=== PATIENT | female | born 1975 | race Caucasian/White ===

== ENCOUNTER 2019-03-01 06:00 | Outpatient (RCR) | payer MEDICAID, SELFPAY | END 2019-03-23 23:00 | disposition home or self-care (01) | LOC: TPT 06:00 | PROVIDERS: Family Provider Family Medicine; Visit Provider Anesthesiology Pain Medicine | DX: M48.04 Spinal stenosis, thoracic region (principal); G89.4 Chronic pain syndrome | CPT/HCPCS: 97110 ×5; 97530; G0283 ×5 ==

== ENCOUNTER → 2019-05-27 16:30 | Outpatient (BNVA) | payer MEDICAID, SELFPAY | PROVIDERS: Family Provider Family Medicine; PCP Family Medicine; Visit Provider Family Medicine | DX: L02.211 Cutaneous abscess of abdominal wall (principal); M19.90 Unspecified osteoarthritis, unspecified site | CPT/HCPCS: 84550; 85651; 86038; 86431 ==

== ENCOUNTER → 2019-06-05 11:51 | Outpatient (BNVA) | payer MEDICAID, SELFPAY | PROVIDERS: Family Provider Family Medicine; PCP Family Medicine; Visit Provider Family Medicine | DX: E10.9 Type 1 diabetes mellitus without complications (principal); M19.90 Unspecified osteoarthritis, unspecified site; F25.9 Schizoaffective disorder, unspecified; G89.29 Other chronic pain | CPT/HCPCS: 36415; 80048; 82044; 83036; 83721 ==

== ENCOUNTER → 2019-06-22 13:43 | Outpatient (BNVA) | payer MEDICAID, SELFPAY | PROVIDERS: Family Provider Family Medicine; PCP Family Medicine; Visit Provider Counselor Professional | DX: F41.1 Generalized anxiety disorder (principal); F33.2 Major depressive disorder, recurrent severe without psychotic features; F43.9 Reaction to severe stress, unspecified | CPT/HCPCS: 90834 ==

== ENCOUNTER → 2019-07-02 07:45 | Outpatient (BNVA) | payer MEDICAID, SELFPAY | PROVIDERS: Family Provider Family Medicine; PCP Family Medicine; Visit Provider Counselor Professional | DX: F41.1 Generalized anxiety disorder (principal); F33.2 Major depressive disorder, recurrent severe without psychotic features; F43.12 Post-traumatic stress disorder, chronic | CPT/HCPCS: 90834 ==

== ENCOUNTER → 2019-07-09 08:46 | Outpatient (BNVA) | payer MEDICAID, SELFPAY | PROVIDERS: Family Provider Family Medicine; PCP Family Medicine; Visit Provider Counselor Professional | DX: F41.1 Generalized anxiety disorder (principal); F33.2 Major depressive disorder, recurrent severe without psychotic features | CPT/HCPCS: 90834 ==

== ENCOUNTER → 2019-07-15 07:43 | Outpatient (BNVA) | payer MEDICAID, SELFPAY | PROVIDERS: Family Provider Family Medicine; PCP Family Medicine; Visit Provider Counselor Professional | DX: F41.1 Generalized anxiety disorder (principal); F33.9 Major depressive disorder, recurrent, unspecified; F43.12 Post-traumatic stress disorder, chronic | CPT/HCPCS: 90834 ==

== ENCOUNTER → 2019-07-23 08:35 | Outpatient (BNVA) | payer MEDICAID, SELFPAY | PROVIDERS: Family Provider Family Medicine; PCP Family Medicine; Visit Provider Counselor Professional | DX: F41.1 Generalized anxiety disorder (principal); F33.2 Major depressive disorder, recurrent severe without psychotic features | CPT/HCPCS: 90834 ==

== ENCOUNTER → 2019-07-30 08:30 | Outpatient (BNVA) | payer MEDICAID, SELFPAY | PROVIDERS: Family Provider Family Medicine; PCP Family Medicine; Visit Provider Counselor Professional | DX: F41.1 Generalized anxiety disorder (principal); F33.2 Major depressive disorder, recurrent severe without psychotic features | CPT/HCPCS: 90834 ==

== ENCOUNTER → 2019-07-31 08:16 | Outpatient (BNVA) | payer MEDICAID, SELFPAY | PROVIDERS: Family Provider Family Medicine; PCP Family Medicine; Visit Provider Psychiatry & Neurology Psychiatry | DX: E53.8 Deficiency of other specified B group vitamins (principal); G63 Polyneuropathy in diseases classified elsewhere; R41.89 Other symptoms and signs involving cognitive functions and awareness; R46.89 Other symptoms and signs involving appearance and behavior; F17.200 Nicotine dependence, unspecified, uncomplicated; G47.00 Insomnia, unspecified; E55.9 Vitamin D deficiency, unspecified; F06.30 Mood disorder due to known physiological condition, unspecified | CPT/HCPCS: 99205 ==

== ENCOUNTER → 2019-08-05 09:04 | Outpatient (BNVA) | payer MEDICAID, SELFPAY | PROVIDERS: Family Provider Family Medicine; Visit Provider Counselor Professional | DX: F41.1 Generalized anxiety disorder (principal); F33.2 Major depressive disorder, recurrent severe without psychotic features; F43.9 Reaction to severe stress, unspecified | CPT/HCPCS: 90834 ==

== ENCOUNTER → 2019-08-14 07:49 | Outpatient (BNVA) | payer MEDICAID, SELFPAY | PROVIDERS: Family Provider Family Medicine; Visit Provider Psychiatry & Neurology Psychiatry | DX: F34.9 Persistent mood [affective] disorder, unspecified (principal) | CPT/HCPCS: 99214 ==

== ENCOUNTER → 2019-08-17 08:31 | Outpatient (BNVA) | payer MEDICAID, SELFPAY | PROVIDERS: Family Provider Family Medicine; Visit Provider Counselor Professional | DX: F06.30 Mood disorder due to known physiological condition, unspecified (principal); F17.200 Nicotine dependence, unspecified, uncomplicated | CPT/HCPCS: 90834 ==

== ENCOUNTER → 2019-08-25 11:08 | Outpatient (BNVA) | payer MEDICAID, SELFPAY | PROVIDERS: Family Provider Family Medicine; Visit Provider Psychiatry & Neurology Psychiatry | DX: E53.8 Deficiency of other specified B group vitamins (principal); E55.9 Vitamin D deficiency, unspecified; F06.30 Mood disorder due to known physiological condition, unspecified; G47.9 Sleep disorder, unspecified; G47.00 Insomnia, unspecified; R41.89 Other symptoms and signs involving cognitive functions and awareness; E10.65 Type 1 diabetes mellitus with hyperglycemia | CPT/HCPCS: 80053; 80061; 82306; 82607; 82746; 83036; 83735; 84439; 84443; 84481; 85025 ==

== ENCOUNTER → 2019-08-27 08:36 | Outpatient (BNVA) | payer MEDICAID, SELFPAY | PROVIDERS: Family Provider Family Medicine; Visit Provider Nurse Practitioner Psychiatric/Mental Health | DX: F43.12 Post-traumatic stress disorder, chronic (principal); F06.30 Mood disorder due to known physiological condition, unspecified; G47.00 Insomnia, unspecified; F17.200 Nicotine dependence, unspecified, uncomplicated | CPT/HCPCS: 99213 ==

== ENCOUNTER → 2019-09-02 14:00 | Outpatient (BNVA) | payer MEDICAID, SELFPAY | PROVIDERS: Family Provider Family Medicine; PCP Family Medicine; Visit Provider Counselor Professional | DX: F43.12 Post-traumatic stress disorder, chronic (principal); F17.200 Nicotine dependence, unspecified, uncomplicated | CPT/HCPCS: 90834 ==

== ENCOUNTER 2019-10-05 12:24 | Outpatient (CLI) | payer MEDICAID, SELFPAY ==
--- NOTE | 2019-10-05 13:54 | XRR_ITS ---
PROCEDURE INFORMATION: Exam: XR Left Hand Exam date and time: 10/05/2019 2:02 PM Age: 44 years old Clinical indication: Pain; Hand; Bilateral; Additional info: Bilateral hand pain TECHNIQUE: Imaging protocol: XR Left hand. Views: 3 or more views. COMPARISON: No relevant prior studies available. FINDINGS: Bones/joints: Negative for acute bony abnormality Soft tissues: Normal. XR/XR hand LT min 3V* [id number] IMPRESSION: No acute findings.
--- NOTE | 2019-10-05 13:54 | XRR_ITS ---
PROCEDURE INFORMATION: Exam: XR Left Knee Exam date and time: 10/05/2019 2:45 PM Age: 44 years old Clinical indication: Pain; Knee; Bilateral; Additional info: Bilateral knee pain TECHNIQUE: Imaging protocol: XR Left knee. Views: 3 views. COMPARISON: No relevant prior studies available. FINDINGS: Bones/joints: Normal. Soft tissues: Normal. XR/XR knee LT 3V* [id number] IMPRESSION: No acute findings.
--- NOTE | 2019-10-05 13:54 | XRR_ITS ---
PROCEDURE INFORMATION: Exam: XR Right Knee Exam date and time: 10/05/2019 2:50 PM Age: 44 years old Clinical indication: Pain; Knee; Bilateral; Additional info: Bilateral knee pain TECHNIQUE: Imaging protocol: XR Right knee. Views: 3 views. COMPARISON: No relevant prior studies available. FINDINGS: Bones/joints: Negative for acute bony abnormality Soft tissues: Normal. XR/XR knee RT 3V* [id number] IMPRESSION: No acute findings.
--- NOTE | 2019-10-05 13:54 | XRR_ITS ---
PROCEDURE INFORMATION: Exam: XR Right Hand Exam date and time: 10/05/2019 2:38 PM Age: 44 years old Clinical indication: Pain; Hand; Bilateral; Additional info: Bilateral hand pain TECHNIQUE: Imaging protocol: XR Right hand. Views: 3 or more views. COMPARISON: No relevant prior studies available. FINDINGS: Bones/joints: Negative for acute bony abnormality Soft tissues: Normal. XR/XR hand RT min 3V* [id number] IMPRESSION: No acute findings.
--- NOTE | 2019-10-05 13:54 | XRR_ITS ---
PROCEDURE INFORMATION: Exam: XR Bilateral Hips with Pelvis when Performed Exam date and time: 10/05/2019 3:18 PM Age: 44 years old Clinical indication: Hip pain; Bilateral; Additional info: Bilateral hip pain TECHNIQUE: Imaging protocol: XR bilateral hips with pelvis when performed. Views: 2 views. COMPARISON: US pelvic with transvaginal 08/16/2016 3:26 PM FINDINGS: Bones/joints: Unremarkable. No acute fracture. Soft tissues: Unremarkable. XR/XR hip BI m 5V wo/w pel* [id number] IMPRESSION: No acute findings.
[2019-10-05 14:49] LABS: Alanine Aminotransferase 16 U/L (0-33); Albumin Level 4.5 g/dL (3.5-5.2); Alkaline Phosphatase 57 IU/L (35-105); Anion Gap 21.6 (5-19); Aspartate Amino Transferase 16 U/L (0-32); Blood Urea Nitrogen 13 mg/dL (6-20); Calcium 9.4 mg/dL (8.5-10.5); Carbon Dioxide 19 mmol/L (22-29); Chloride 101 mmol/L (98-107); Globulin 2.8 g/dL (1.3-4.6); Glucose 179 mg/dL (65-115); Osmolality Calculated 285 mOsm/kg (285-295); Potassium 4.6 mmol/L (3.5-5.1); Sodium 137 mmol/L (136-145); Total Bilirubin 0.4 mg/dL (0.15-1.2); Total Protein 7.3 g/dL (6.6-8.7)
[2019-10-05 15:40] LABS: Erythrocyte Sedimentation Rate 16 mm/hr (0-15)
[2019-10-06 12:40] LABS: Anti-Nuclear Antibody Screen NEGATIVE (NEGATIVE)
[2019-10-06 13:40] LABS: Cyclic Citrullinated Peptide <16 UNITS
== END 2019-10-05 12:25 | disposition home or self-care (01) ==
PROVIDERS: PCP Family Medicine; Visit Provider Anesthesiology Pain Medicine
DX: M25.561 Pain in right knee (principal); M25.562 Pain in left knee; M25.551 Pain in right hip; M25.552 Pain in left hip; M79.641 Pain in right hand; M79.642 Pain in left hand
CPT/HCPCS: 73130; 73522; 73523; 73562; 80053; 85651; 86038; 86140; 86431

== ENCOUNTER → 2019-11-25 13:58 | Outpatient (BNVA) | payer MEDICAID, SELFPAY | PROVIDERS: PCP Family Medicine; Visit Provider Internal Medicine Rheumatology | DX: M06.00 Rheumatoid arthritis without rheumatoid factor, unspecified site (principal); Z11.59 Encounter for screening for other viral diseases; Z79.899 Other long term (current) drug therapy; Z11.1 Encounter for screening for respiratory tuberculosis; E10.65 Type 1 diabetes mellitus with hyperglycemia; M51.9 Unspecified thoracic, thoracolumbar and lumbosacral intervertebral disc disorder; M48.00 Spinal stenosis, site unspecified; F17.210 Nicotine dependence, cigarettes, uncomplicated; Z79.4 Long term (current) use of insulin | CPT/HCPCS: 36415; 82306; 84550; 85025; 85651; 86140; 86480; 86704; 86803; 87340; 99204 ==

== ENCOUNTER → 2019-12-30 12:13 | Outpatient (BNVA) | payer MEDICAID, SELFPAY | PROVIDERS: PCP Family Medicine; Visit Provider Family Medicine | DX: M79.672 Pain in left foot (principal); E10.65 Type 1 diabetes mellitus with hyperglycemia; E78.2 Mixed hyperlipidemia; H53.9 Unspecified visual disturbance; M19.072 Primary osteoarthritis, left ankle and foot | CPT/HCPCS: 73630; 80061; 83036 ==

== ENCOUNTER → 2020-01-13 15:16 | Outpatient (BNVA) | payer MEDICAID, SELFPAY | PROVIDERS: PCP Family Medicine; Visit Provider Internal Medicine Rheumatology | DX: M06.041 Rheumatoid arthritis without rheumatoid factor, right hand (principal); M06.042 Rheumatoid arthritis without rheumatoid factor, left hand; E10.65 Type 1 diabetes mellitus with hyperglycemia; Z79.899 Other long term (current) drug therapy; F17.210 Nicotine dependence, cigarettes, uncomplicated; Z79.52 Long term (current) use of systemic steroids; Z79.4 Long term (current) use of insulin | CPT/HCPCS: 99214 ==

== ENCOUNTER → 2020-02-09 11:23 | Outpatient (BNVA) | payer MEDICAID, SELFPAY | PROVIDERS: PCP Family Medicine; Visit Provider Physician Assistant Medical | DX: E10.65 Type 1 diabetes mellitus with hyperglycemia (principal) | CPT/HCPCS: 82043; 82565; 83036 ==

== ENCOUNTER → 2020-02-11 12:49 | Outpatient (BNVA) | payer MEDICAID, SELFPAY | PROVIDERS: PCP Family Medicine | DX: Z79.899 Other long term (current) drug therapy (principal) | CPT/HCPCS: 36415; 80076; 82565; 85025; 85651; 86140 ==

== ENCOUNTER → 2020-03-15 08:15 | Outpatient (BNVA) | payer MEDICAID, SELFPAY | PROVIDERS: PCP Family Medicine; Referring Provider Family Medicine; Visit Provider Specialist | DX: G43.709 Chronic migraine without aura, not intractable, without status migrainosus (principal); H53.19 Other subjective visual disturbances; R41.89 Other symptoms and signs involving cognitive functions and awareness; R46.89 Other symptoms and signs involving appearance and behavior; E10.65 Type 1 diabetes mellitus with hyperglycemia; Z79.4 Long term (current) use of insulin; F17.210 Nicotine dependence, cigarettes, uncomplicated | CPT/HCPCS: 99204 ==

== ENCOUNTER 2020-03-29 23:15 | Emergency (ER) | payer MEDICAID, SELFPAY ==
[2020-03-29 23:20] VITALS: BP 98/59; PULSE 120; RESP 25; TEMP 37.1; O2SAT 95; BMI 36.6
--- NOTE | 2020-03-29 23:36 | PC.NURSE ---
pt had witnessed syncopal episode in triage wr. would not come to with sternal rub. wheeled pt back to room and pt came to and is alert and oriented x4
--- NOTE | 2020-03-29 23:49 | W.ED.EXTPRO ---
HPI - Extremity Problem General: Chief complaint: Extremity Injury, Lower Stated complaint: Hip Pain Time Seen by Provider: 03/29/20 23:35 History of Present Illness: HPI Narrative: Patient is a 44-year-old female who comes to the ED with acute on chronic right hip pain. Patient says she has been having chronic right hip pain for the past several months and she is seeing her doctor told her it is bursitis and told her to do some exercises to help with symptoms. She says her sizes have not helped. She says today she started having severe right hip pain. She describes the pain is sharp and burning pain in her hip and that goes down into her right leg. She says pain also shoots into the lower back as well. She rates pain a 10 out of 10. She denies any acute injury to cause more severe pain today, but does state around 10 PM tonight she fell due to the pain. Denies any head trauma or loss of consciousness. She did state that right hip pain got worse after fall. Denies any bladder or bowel incontinence or pelvic anesthesia or weakness to extremities. Associated symptoms: Deny chest pain, fever(s) or rash Review of Systems Const: Denies: fever(s), chills or fatigue Eyes: Denies: change in vision or eye discomfort ENMT: Denies: throat pain, odynophagia, nasal discharge or nasal congestion Card: Denies: chest pain, palpitations, edema, swelling of feet/ankles, dyspnea on exertion or orthopnea Resp: Denies: dyspnea, productive cough or non-productive cough GI: Denies: abdominal pain, nausea, vomiting, diarrhea, constipation or hematochezia : Denies: flank pain, dysuria or hematuria Musc: Reports: back pain (Low back pain) and extremity pain (Right hip pain); Denies: neck pain or extremity swelling Skin/Breast: Denies: rash or new lesions Neuro: Denies: headache(s), numbness in extremities or weakness in extremities PFS ED PFSH: Medical History Anxiety Bulging lumbar disc Chronic constipation DDD (degenerative disc disease) Diabetes mellitus type 1- pump Essential (primary) hypertension GERD (gastroesophageal reflux disease) High risk medication use Hyperlipidemia Immunization counseling Insomnia Leukocytosis Neuropathy Nicotine addiction Onychodystrophy PAD (peripheral artery disease) Removal of other organ (partial) (total) as the cause of abnormal reaction of the patient, or of later complication, without mention of misadventure at the time of the procedure partial removal of spleen and pancreace 2006 performed in [place] S/P angiogram of extremity Seronegative rheumatoid arthritis Seronegative rheumatoid arthritis of both hands Sleep disorder Spinal stenosis Thoracic disc disease Surgical History History of dental surgery History of esophagogastroduodenoscopy (EGD) S/P section S/P cholecystectomy S/P tubal ligation 1996 Family History Mother Diabetes Hypertension Grandfather Diabetes Maternal Grandmother Diabetes Maternal Father Heart disease Hypertension Family/Other Breast cancer Maternal Aunt and Paternal Aunts Sister Uterine cancer Other Hypercholesterolemia Social History Smoking and tobacco status: current every day smoker cigarettes Packs smoked per day: 1 Alcohol intake: never Lives independently: Yes Household members: significant other Marital status: Single Current occupational status: employed Current occupation: Part-time works from home History of recent travel: No Physical Exam Const: COMMON NORMALS: patient oriented x3 and alert GENERAL APPEARANCE: cooperative and other (Patient is crying hysterically through history and physical exam.) HENMT: COMMON NORMALS: normocephalic HEAD & SCALP: normocephalic MOUTH: Normal oral and palatal mucosa present THROAT: posterior oropharynx normal and uvula midline Eye: COMMON NORMALS: Equal, round and reactive pupils present PUPIL: Yes Equal, round and reactive pupils present Neck/C-Spine: COMMON NORMALS: supple GENERAL: Yes normal visual inspection Resp: COMMON NORMALS: normal respiratory effort, No retractions, No use of accessory muscles and clear to auscultation bilaterally AUSCULTATION: clear to auscultation bilaterally Cardio: COMMON NORMALS: regular rate, regular rhythm, S1 normal heart sound present, S2 normal heart sound present, No gallops present (Cardio), No clicks present (Cardio), No murmurs present (Cardio) and Peripheral pulses 2+ throughout RATE: regular rate RHYTHM: regular rhythm HEART SOUNDS: S1 normal heart sound present and S2 normal heart sound present PERIPHERAL PULSES: Peripheral pulses 2+ throughout GI: COMMON NORMALS: Normal to inspection, nondistended, normoactive bowel sounds present, Soft to palpation, non-tender and no masses PALPATION: Yes Soft to palpation : COMMON NORMALS: Yes no CVA tenderness BLADDER/KIDNEY EXAM: Yes no CVA tenderness Back/Pelvis: COMMON NORMALS: no CVA tenderness Extremity: COMMON NORMALS: no pedal edema NARRATIVE EXTREMITY EXAM: Patient has some tenderness upon palpation of lateral aspect of right hip. Otherwise no other significant findings upon exam. GENERAL: Yes normal exam except as noted Neuro: COMMON NORMALS: patient oriented x3 and moves all extremities SENSORIUM/ORIENTATION: Yes alert Skin: GENERAL SKIN EXAM: dry skin Course Vital Signs: Vital signs: Vital Signs Temperature 98.8 F 03/29/20 23:20 Pulse Rate 84 03/30/20 02:39 Respiratory Rate 14 03/30/20 02:39 Blood Pressure 132/91 03/30/20 02:39 Pulse Oximetry 97 03/30/20 02:39 MDM - Extremity (Nontraumatic) MDM Narrative: Medical decision making narrative: Patient is a 44-year-old female comes to the ED with acute on chronic right hip pain. She denies any acute accident or injury to cause severe pain., But did say that severe pain started today and she had a fall due to to pain. Denies any head injury or loss of consciousness. She does say that she has lower back pain and she describes the pain in her hip radiating down into her leg. Pain described as sharp and burning. X-ray right hip performed showed no acute findings. Patient was crying hysterically upon exam. She was given a dose of morphine and Ativan IM and her symptoms improved proved. History and presentation of patient is suggestive of lumbar radiculopathy. She denies any cauda equina symptoms. She was seen Dr. Mcnamara previously and would like to see the new neurosurgeon. I placed an order with case management patient be referred to a new neurosurgeon. Patient with discharge and told that case management will be contacting them in the next several days set up an appointment with neurosurgery. Return ED precautions given. Patient currently has a pain contract in takes oxycodone. patient understood and agree with plan. Lab Data: Labs: Lab Results 03/30/20 03/30/20 Range/Units 01:39 02:29 POC Glucose 57 L 73 (70-110) mg/dL Imaging Data^: Xray Ortho: Attestation: I personally reviewed and interpreted this imaging study as follows: My impression: Right hip x-ray?no acute fractures or findings seen. Discharge Plan Discharge Patient Disposition: Home Clinical Impression: Lumbar radiculopathy Condition: Stable Prescriptions: No Action folic acid 1 mg tablet 1 mg PO DAILY Qty: 90 RF: 1 oxycodone 5 mg tablet 5 mg PO BID PRNRF: 0 topiramate [Topamax] 25 mg tablet 25 mg PO BID Qty: 60 RF: 5 Motegrity 2 mg tablet 2 mg PO ONCE RF: 0 Novolog PenFill U-100 Insulin 100 unit/mL cartridge See Rx Instructions SUBCUT .COMPLEX RF: 0 baclofen 20 mg tablet 20 mg PO BID RF: 0 atorvastatin 10 mg tablet 10 mg PO ONCE RF: 0 hydroxychloroquine 200 mg tablet 200 mg PO BID Qty: 60 RF: 3 methotrexate sodium 2.5 mg tablet See Rx Instructions PO .week Qty: 40 RF: 3 prednisone 2.5 mg tablet 2.5 mg PO BID Qty: 60 RF: 3 oxycodone-acetaminophen 5-325 mg tablet 1 tab PO Q8H PRNRF: 0 trazodone 50 mg tablet 50 mg PO .at bedtime PRN (Reason: insomnia) Qty: 90 RF: 1 furosemide 20 mg tablet 20 mg PO QAM Qty: 90 RF: 0 Zyrtec 10 mg capsule 10 mg PO DAILY Qty: 30 RF: 5 Motegrity 2 mg tablet 2 mg PO QDAY 30 Days Qty: 30 RF: 6 aspirin [Adult Low Dose Aspirin] 81 mg tablet,delayed release (DR/EC) 81 mg PO DAILY Qty: 90 RF: 4 diclofenac sodium [Voltaren] 1 % gel 2 gm TOPICAL QID Qty: 100 RF: 1 celecoxib 200 mg capsule See Rx Instructions .ROUTE .COMPLEX Qty: 60 RF: 3 Dexilant 60 mg capsule,biphase delayed releas 60 mg PO DAILY Qty: 90 RF: 0 Discharge Orders: Discharge ED (Routine); Ordered 03/30/20 Ordered By: Brigido Lynch Referrals: Laura Reich MD [Primary Care Provider] - Discharge Diet: Regular Discharge Activity: Increase activity as tolerated Patient Instructions: Lumbar Radiculopathy (ED) Activity Restrictions/Additional Instructions: Follow-up with medical provider as directed. Case management will be contacting you in the next several days to set up appointment with neurosurgeon Doc. continue taking all home medications as prescribed. Rest and apply cold pack on lower back and hip to help with symptoms. Continue taking previously prescribed pain meds. Return to the ER or your medical provider if condition worsens. Please read and understand discharge instructions. If any questions, please ask. Coding Level of Care Code ED Process Improvement Consultant for [employer] Exam Comprehensive
--- NOTE | 2020-03-29 23:55 | XRR_ITS ---
PROCEDURE INFORMATION: Exam: XR Right Hip with Pelvis when Performed Exam date and time: 03/29/2020 11:56 PM Age: 44 years old Clinical indication: Pain and injury or trauma; Fall; Blunt trauma (contusions or hematomas); Hip pain; Right hip; Additional info: Right hip pain with fall TECHNIQUE: Imaging protocol: XR Right hip with pelvis when performed. Views: 1 view. COMPARISON: CR XR hip BI m 5V wo/w pel* [id number] 10/05/2019 2:51 PM FINDINGS: Bones/joints: Unremarkable. No acute fracture. Soft tissues: Unremarkable. XR/XR hip RT 2-3V wo/w pel* [id number] IMPRESSION: No acute findings.
[2020-03-30] VITALS: BP 156/80; PULSE 99; RESP 18; O2SAT 98
[2020-03-30 00:10] VITALS: RESP 19; O2SAT 98
[2020-03-30] MEDS: morphine 4 mg/mL SDV 1 mL IVP (00:10)
[2020-03-30] MEDS: LORazepam 2 mg/mL INJ 1 mL 1 MG IVP (00:11)
[2020-03-30 00:43] VITALS: BP 143/98; O2SAT 98
[2020-03-30 01:30] VITALS: BP 139/93; RESP 16; O2SAT 99
[2020-03-30] MEDS: morphine 4 mg/mL SDV 1 mL IM (01:35)
[2020-03-30 01:44] LABS: Glucose Point of Care 57 mg/dL (70-110)
[2020-03-30 02:33] LABS: Glucose Point of Care 73 mg/dL (70-110)
[2020-03-30 02:38] VITALS: PULSE 82; RESP 14; O2SAT 96
[2020-03-30 02:39] VITALS: BP 132/91; PULSE 84; RESP 14; O2SAT 97
--- NOTE | 2020-03-30 02:41 | PC.NURSE ---
patient given juice by nurse, patient discharged with hcp aware of patient blood glucose levels and juice given before discharged.
--- NOTE | 2020-03-30 09:37 | DCPLANNER ---
legal department manager had message to schedule a follow up appointment for patient with neurosurgeon. legal department manager called the ortho clinic, spoke with Lilly, gave clinic patients information. legal department manager was told that patients information would be printed and reviewed. Clinic will call patient with appointment information.
--- NOTE | 2020-04-01 10:19 | DCPLANNER ---
Patient has a follow up appointment scheduled for Saturday, April 04, 2020 at 2:[address] Schroeder at [facility]. Clinic will call patient with appointment information.
--- NOTE | 2020-04-20 15:36 | DCPLANNER ---
Patient had a follow up appointment scheduled with ortho -patient did attend appointment.
== END 2020-03-30 02:33 | disposition home or self-care (01) ==
PROVIDERS: Emergency Provider Physician Assistant; PCP Family Medicine
DX: M54.16 Radiculopathy, lumbar region (principal); Z79.4 Long term (current) use of insulin; Z79.82 Long term (current) use of aspirin; I10 Essential (primary) hypertension; E78.5 Hyperlipidemia, unspecified; E10.40 Type 1 diabetes mellitus with diabetic neuropathy, unspecified; F17.210 Nicotine dependence, cigarettes, uncomplicated
CPT/HCPCS: 12345; 36416; 73502; 82962; 96372; 96374; 96375; 99281; 99283; J2060; J2270

== ENCOUNTER 2020-04-06 10:06 | Outpatient (CLI) | payer MEDICAID, SELFPAY ==
--- NOTE | 2020-04-06 10:15 | CT_ITS ---
WS: [id number] CT ABDOMEN CONTRAST TECHNIQUE: Contrast enhanced CT of the abdomen with coronal and sagittal reformatted images. CLINICAL INFORMATION: CHRONIC NAUSEA, GASTROPARESIS COMPARISON: None. DLP: 802.[address] scans at [facility] use at least one of these dose optimization techniques: automat ed exposure control; mA and/or kV adjustment per patient size (includes targeted exams where dose is matched to clinical indication); or iterative reconstruction. FINDINGS: Liver is normal in appearance. Normal portal vein and splenic vein. Cholecystectomy clips. Normal spl een. Normal GE junction. Adrenal glands are normal. Normal renal parenchymal enhancement. No hydronep hrosis. Small right renal cyst. Right renal cyst measures 10 mm. Fatty atrophy of the pancreas. Small low-attenuation lesion along the tail of the pancreas measuring 11 mm. This is difficult to further characterize and nonspecific but may represent sidebranch IPMN. This can be further evaluated with MR I abdomen without and with gadolinium enhancement. Lung bases are well aerated. Tiny faint 2 mm nodule right lower lobe. Normal caliber abdominal aorta. Visualized small and large bowel are unremarkable. Normal appendix in the right lower quadrant. Inci dental fat-containing umbilical hernia. Normal lumbar spine. CT/CT abdomen w con* [id number] IMPRESSION: 1. Prior cholecystectomy. 2. Normal renal parenchymal enhancement. No hydronephrosis. No obstructing hilda al or ureteral calculi. 3. Incidental right renal cyst measuring 10 mm. 4. Small low-attenuation lesion along the tail of the pancreas measuring 11 mm . This is nonspecific but may represent sidebranch IPMN. This can be further ev aluated with MRI abdomen without and with gadolinium enhancement.. 5. Normal Caliber abdominal aorta. 6. Incidental Fat-containing umbilical hernia.
[2020-04-06] MEDS: iohexol 300 mg/mL 50 mL Btl PO (10:26)
[2020-04-06] MEDS: iohexol 300 mg/mL 100 mL Btl IV (10:59)
== END 2020-04-06 10:07 | disposition home or self-care (01) ==
LOC: RADWPI 10:12
PROVIDERS: PCP Family Medicine; Visit Provider Internal Medicine
DX: K31.84 Gastroparesis (principal); R11.0 Nausea; K42.9 Umbilical hernia without obstruction or gangrene; K86.9 Disease of pancreas, unspecified; N28.1 Cyst of kidney, acquired; Z90.49 Acquired absence of other specified parts of digestive tract
CPT/HCPCS: 74160; Q9967

== ENCOUNTER → 2020-04-12 12:51 | Outpatient (BNVA) | payer MEDICAID, SELFPAY | PROVIDERS: PCP Family Medicine; Visit Provider Internal Medicine Rheumatology | DX: M06.041 Rheumatoid arthritis without rheumatoid factor, right hand (principal); M06.042 Rheumatoid arthritis without rheumatoid factor, left hand; Z79.899 Other long term (current) drug therapy; Z79.52 Long term (current) use of systemic steroids; E10.65 Type 1 diabetes mellitus with hyperglycemia; Z96.41 Presence of insulin pump (external) (internal); Z79.4 Long term (current) use of insulin; F17.210 Nicotine dependence, cigarettes, uncomplicated | CPT/HCPCS: 99214 ==

== ENCOUNTER → 2020-04-14 14:23 | Outpatient (BNVA) | payer MEDICAID, SELFPAY | PROVIDERS: PCP Family Medicine; Visit Provider Orthopaedic Surgery | DX: M48.061 Spinal stenosis, lumbar region without neurogenic claudication (principal); M47.894 Other spondylosis, thoracic region; M54.5 Low back pain; M54.6 Pain in thoracic spine | CPT/HCPCS: 72072; 72114 ==

== ENCOUNTER 2020-05-02 13:18 | Outpatient (CLI) | payer MEDICAID, SELFPAY ==
--- NOTE | 2020-05-02 13:45 | MR_ITS ---
WS: [id number] MRI LUMBAR SPINE NONCONTRAST HISTORY: M48.061 - Spinal stenosis, lumbar region without neurogenic claudication COMPARISON: 11/29/2017 TECHNIQUE: Sagittal and axial multisequence imaging is submitted. Central disc osteophyte complex at T11-12. There is slight deformity of the ventral thoracic cord. Th ere is a very small T10-11 central disc protrusion which is unchanged also. Normal lumbar alignment with no compression fractures or marrow edema. Disc spaces and vertebral body heights are well-preserved. Conus terminates normally at L1-2 disc level. L1-L2: Normal. L2-L3: Normal. L3-L4: No stenosis. L4-L5: Small amount of fluid in the facet joints with mild ligamentum flavum hypertrophy. No stenosis . L5-S1: Mild disc bulging with a very shallow central disc protrusion similar to the prior study. No s ignificant nerve root encroachment. Visualized retroperitoneum is negative. MR/MR lumbar spine wo con* [id number] IMPRESSION: 1. No significant disc protrusions or stenosis. 2. Unchanged central disc protrusions as described above at T10-11 and T11-12. 3. Mild disc bulging with a small central disc protrusion at L5-S1 with no ner ve root encroachment.
== END 2020-05-02 13:19 | disposition home or self-care (01) ==
LOC: RADSHAW 13:19
PROVIDERS: PCP Family Medicine; Visit Provider Orthopaedic Surgery
DX: M48.061 Spinal stenosis, lumbar region without neurogenic claudication (principal); M51.24 Other intervertebral disc displacement, thoracic region; M51.27 Other intervertebral disc displacement, lumbosacral region
CPT/HCPCS: 72148

== ENCOUNTER 2020-07-27 21:57 | Emergency (ER) | payer MEDICAID, SELFPAY ==
[2020-07-27 22:07] VITALS: BP 134/83; PULSE 97; RESP 18; TEMP 36.6; O2SAT 99; BMI 38.4
--- NOTE | 2020-07-27 22:21 | XRR_ITS ---
PROCEDURE INFORMATION: Exam: XR Chest Exam date and time: 07/27/2020 10:23 PM Age: 45 years old Clinical indication: Prior surgery; Surgery type: Gb; Patient HX: Chest pain starting this evening. ; Additional info: Cp TECHNIQUE: Imaging protocol: XR of the chest. Views: 1 view. Total images: 1 COMPARISON: CR Ribs LEFT w PA Chest [id number] 07/17/2018 11:38 PM FINDINGS: Lungs: Unremarkable. No consolidation. Pleural spaces: Unremarkable. No pleural effusion. No pneumothorax. Heart/Mediastinum: Unremarkable. No cardiomegaly. Bones/joints: Unremarkable. XR/XR chest 1V portable [id number] IMPRESSION: No acute findings.
--- NOTE | 2020-07-27 22:30 | PC.NURSE ---
EKG taken and given to Dr. Levy
[2020-07-27 22:36] LABS: Glucose Point of Care 86 mg/dL (70-110)
[2020-07-27 22:42] VITALS: BP 129/107; PULSE 95; RESP 20
[2020-07-27] MEDS: lidocaine 2% viscous 15 ML, aluminum-mag hydrox-simethicon 30 ML, sucralfate oral liq 1 GM PO (22:49)
[2020-07-27 22:51] VITALS: BP 141/87; PULSE 89; RESP 20; TEMP 36.6
[2020-07-27 23:17] VITALS: BP 142/68; PULSE 88; RESP 22; O2SAT 97
[2020-07-27] MEDS: ondansetron 2 mg/ML SDV 2 mL 4 MG IVP (23:18)
[2020-07-27] MEDS: morphine 4 mg/mL SDV 1 mL IVP (23:19)
[2020-07-27 23:20] LABS: Basophils # 0.1 10^3/uL (0.0-0.1); Basophils % 1.1 %; Eosinophils # 0.2 10^3/uL (0.0-0.8); Eosinophils % 1.4 %; Hematocrit 40.6 % (37.0-47.0); Hemoglobin 13.3 g/dL (11.5-15.3); Lymphocytes # 5.5 10^3/uL (0.8-4.8); Lymphocytes % 43.7 %; Mean Corpuscular HGB Conc 32.8 g/dL (30.0-36.0); Mean Corpuscular Hemoglobin 30.5 pg (28.0-34.0); Mean Corpuscular Volume 93.1 fL (81-99); Mean Platelet Volume 11.9 fL (7.4-10.4); Monocytes # 0.4 10^3/uL (0.2-0.9); Monocytes % 3.1 %; Neutrophils # 6.32 10^3/uL (1.8-7.7); Neutrophils % 50.4 %; Nucleated Red Blood Cells % 0 %; Platelet Count 184 10^3/cmm (130-400); Red Blood Count 4.36 10^6/uL (4.1-5.3); Red Cell Distribution Width 13.8 % (12.1-15.1); White Blood Count 12.6 10^3/uL (4.0-10.0)
--- NOTE | 2020-07-27 23:29 | ED_ITS ---
HPI - Chest Pain General: Chief Complaint: Chest Pain Stated Complaint: CHEST PAIN Time Seen by Provider: 07/27/20 22:21 Source: patient Mode of arrival: ambulatory Limitations: no limitations History of Present Illness: HPI narrative: 45-year-old female who states has been having chest pain, nausea throughout the day. States been a sharp pain in her lower chest and upper abdomen. Patient did have an EGD done yesterday and had multiple biopsies done. She denies any diarrhea. States the pain is currently 7 out of 10. Denies any worsening improving factors. MD complaint: chest pain Associated symptoms: Deny abdominal pain, dyspnea, fever(s), nausea or vomiting Review of Systems Const: Denies: fever(s), chills, body aches or change in appetite Eyes: Denies: blurry vision or eye discomfort ENMT: Denies: throat pain or dental pain Card: Reports: chest pain Resp: Denies: dyspnea GI: Denies: abdominal pain, nausea, vomiting or diarrhea : Denies: dysuria Musc: Denies: neck pain or back pain Skin/Breast: Denies: rash Neuro: Denies: headache(s) Psych: Denies: depression Fadi/Lymph: Denies: easy bruising All/Imm: Denies: urticaria PFSH ED PFSH: Medical History Anxiety Bulging lumbar disc Chronic constipation DDD (degenerative disc disease) Diabetes mellitus type 1- pump Essential (primary) hypertension GERD (gastroesophageal reflux disease) High risk medication use Hyperlipidemia Immunization counseling Insomnia Leukocytosis Neuropathy Nicotine addiction Onychodystrophy PAD (peripheral artery disease) Removal of other organ (partial) (total) as the cause of abnormal reaction of the patient, or of later complication, without mention of misadventure at the time of the procedure partial removal of spleen and pancreace 2006 performed in [place] S/P angiogram of extremity Seronegative rheumatoid arthritis Seronegative rheumatoid arthritis of both hands Sleep disorder Spinal stenosis Thoracic disc disease Surgical History History of dental surgery History of esophagogastroduodenoscopy (EGD) S/P section S/P cholecystectomy S/P tubal ligation 1996 Family History Mother Diabetes Hypertension Grandfather Diabetes Maternal Grandmother Diabetes Maternal Father Heart disease Hypertension Family/Other Breast cancer Maternal Aunt and Paternal Aunts Sister Uterine cancer Other Hypercholesterolemia Social History Smoking and tobacco status: current every day smoker cigarettes Packs smoked per day: 1 Alcohol intake: never Lives independently: Yes Household members: significant other Marital status: Single Current occupational status: employed Current occupation: Part-time works from home History of recent travel: No Physical Exam Const: COMMON NORMALS: no acute distress, patient oriented x3 and healthy appearing HENMT: COMMON NORMALS: normocephalic and atraumatic HEAD & SCALP: normocephalic and atraumatic Eye: COMMON NORMALS: Equal, round and reactive pupils present and EOMs intact bilaterally PUPIL: Yes Equal, round and reactive pupils present Neck/C-Spine: COMMON NORMALS: full ROM and supple Chest: COMMONS NORMALS: normal inspection of the chest and normal palpation of entire chest wall Resp: COMMON NORMALS: normal respiratory effort, No retractions, No use of accessory muscles and clear to auscultation bilaterally AUSCULTATION: clear to auscultation bilaterally Cardio: COMMON NORMALS: regular rate, regular rhythm and No murmurs present (Cardio) RATE: regular rate RHYTHM: regular rhythm GI: COMMON NORMALS: Normal to inspection, nondistended, normoactive bowel sounds present, Soft to palpation, non-tender and no masses PALPATION: Yes Soft to palpation Extremity: COMMON NORMALS: normal to inspection and full ROM Neuro: COMMON NORMALS: patient oriented x3, moves all extremities and no focal motor deficits Psych: COMMON NORMALS: mental status grossly normal, Normal thought process present and cooperative THOUGHT PROCESS: Normal thought process present Skin: COMMON NORMALS: no rashes or lesions noted and no wounds GENERAL SKIN EXAM: no rashes or lesions noted Course Reevaluation(s): Reevaluation #1: Patient became very angry and screaming and yelling at the nurse. Came in the room to speak to her and she states that my blood sugar is crashing and no one did nothing about it. Her blood sugar was checked and was 65 and she had a sandwich and juice brought here within 10 minutes for that. She is awake and alert I tried to explain to her that we are doing things currently to to fix her blood sugar she felt that it was not in a timely manner to been done quicker than 10 minutes. Did speak to her and she was able to calm down. I informed her that her cannot scream or yell at staff like they were doing and her had actually threatened staff as well and is talked to him and he is calm down at this time as well. Time: 12:20 Vital Signs: Vital signs: Vital Signs Temperature 97.8 F 07/27/20 22:51 Pulse Rate 85 07/28/20 02:17 Respiratory Rate 19 H 07/28/20 02:17 Blood Pressure 124/70 07/28/20 02:17 Pulse Oximetry 97 07/28/20 02:17 MDM - Chest Pain MDM Narrative: Medical decision making narrative: Patient presents with chest abdominal pain. Could be due to her recent EGD and biopsy. Patient's troponins here are normal. CAT scans here showed no acute findings either. She has no signs of perforation. She feels improved here and is stable for discharge. She is to follow-up with her primary care doctor and is to return if worsening. She understands and agrees to plan. Lab Data: Labs: Lab Results 07/27/20 07/27/20 07/27/20 Range/Units 22:33 23:15 23:15 WBC 12.6 H (4.0-10.0) 10^3/ uL RBC 4.36 (4.1-5.3) 10^6/u L Hgb 13.3 (11.5-15.3) g/dL Hct 40.6 (37.0-47.0) % MCV 93.1 (81-99) fL MCH 30.5 (28.0-34.0) pg MCHC 32.8 (30.0-36.0) g/dL RDW 13.8 (12.1-15.1) % Plt Count 184 (130-400) 10^3/c mm MPV 11.9 H (7.4-10.4) fL Neut % (Auto) 50.4 % Lymph % (Auto) 43.7 % Leake % (Auto) 3.1 % Eos % (Auto) 1.4 % Baso % (Auto) 1.1 % Neut # (Auto) 6.32 (1.8-7.7) 10^3/u L Lymph # (Auto) 5.5 H (0.8-4.8) 10^3/u L Leake # (Auto) 0.4 (0.2-0.9) 10^3/u L Eos # (Auto) 0.2 (0.0-0.8) 10^3/u L Baso # (Auto) 0.1 (0.0-0.1) 10^3/u L Nucleated RBC % (a uto) 0 % Nucleated RBCs # 0.0 /100WBC Sodium 139 (136-145) mmol/L Potassium 4.0 (3.5-5.1) mmol/L Chloride 107 (98-107) mmol/L Carbon Dioxide 25 (22-29) mmol/L Anion Gap 11.0 (5-19) BUN 16 (6-20) mg/dL Creatinine 0.9 (0.5-0.9) mg/dL GFR Calculation 67.7 L (90-130) mL/min Glucose 79 (65-115) mg/dL POC Glucose 86 (70-110) mg/dL Calculated Osmolal ity 288 (285-295) mOsm/k g Calcium 8.2 L (8.5-10.5) mg/dL Total Bilirubin 0.2 (0.15-1.2) mg/dL AST 14 (0-32) U/L ALT 17 (0-33) U/L Alkaline Phosphata se 52 (35-105) IU/L Troponin T Baselin e (0-10) ng/L Troponin T 120 Min [place] (0-10) ng/L Delta Troponin T (0-10) ABS# Total Protein 5.6 L (6.6-8.7) g/dL Albumin 4.0 (3.5-5.2) g/dL Globulin 1.6 (1.3-4.6) g/dL 07/27/20 07/28/20 07/28/20 Range/Units 23:15 00:09 00:44 WBC (4.0-10.0) 10^3/ uL RBC (4.1-5.3) 10^6/u L Hgb (11.5-15.3) g/dL Hct (37.0-47.0) % MCV (81-99) fL MCH (28.0-34.0) pg MCHC (30.0-36.0) g/dL RDW (12.1-15.1) % Plt Count (130-400) 10^3/c mm MPV (7.4-10.4) fL Neut % (Auto) % Lymph % (Auto) % Leake % (Auto) % Eos % (Auto) % Baso % (Auto) % Neut # (Auto) (1.8-7.7) 10^3/u L Lymph # (Auto) (0.8-4.8) 10^3/u L Leake # (Auto) (0.2-0.9) 10^3/u L Eos # (Auto) (0.0-0.8) 10^3/u L Baso # (Auto) (0.0-0.1) 10^3/u L Nucleated RBC % (a uto) % Nucleated RBCs # /100WBC Sodium (136-145) mmol/L Potassium (3.5-5.1) mmol/L Chloride (98-107) mmol/L Carbon Dioxide (22-29) mmol/L Anion Gap (5-19) BUN (6-20) mg/dL Creatinine (0.5-0.9) mg/dL GFR Calculation (90-130) mL/min Glucose (65-115) mg/dL POC Glucose 65 L (70-110) mg/dL Calculated Osmolal ity (285-295) mOsm/k g Calcium (8.5-10.5) mg/dL Total Bilirubin (0.15-1.2) mg/dL AST (0-32) U/L ALT (0-33) U/L Alkaline Phosphata se (35-105) IU/L Troponin T Baselin e 6 (0-10) ng/L Troponin T 120 Min [place] 6.20 (0-10) ng/L Delta Troponin T 0.20 (0-10) ABS# Total Protein (6.6-8.7) g/dL Albumin (3.5-5.2) g/dL Globulin (1.3-4.6) g/dL 07/28/20 Range/Units 01:30 WBC (4.0-10.0) 10^3/ uL RBC (4.1-5.3) 10^6/u L Hgb (11.5-15.3) g/dL Hct (37.0-47.0) % MCV (81-99) fL MCH (28.0-34.0) pg MCHC (30.0-36.0) g/dL RDW (12.1-15.1) % Plt Count (130-400) 10^3/c mm MPV (7.4-10.4) fL Neut % (Auto) % Lymph % (Auto) % Leake % (Auto) % Eos % (Auto) % Baso % (Auto) % Neut # (Auto) (1.8-7.7) 10^3/u L Lymph # (Auto) (0.8-4.8) 10^3/u L Leake # (Auto) (0.2-0.9) 10^3/u L Eos # (Auto) (0.0-0.8) 10^3/u L Baso # (Auto) (0.0-0.1) 10^3/u L Nucleated RBC % (a uto) % Nucleated RBCs # /100WBC Sodium (136-145) mmol/L Potassium (3.5-5.1) mmol/L Chloride (98-107) mmol/L Carbon Dioxide (22-29) mmol/L Anion Gap (5-19) BUN (6-20) mg/dL Creatinine (0.5-0.9) mg/dL GFR Calculation (90-130) mL/min Glucose (65-115) mg/dL POC Glucose 128 H (70-110) mg/dL Calculated Osmolal ity (285-295) mOsm/k g Calcium (8.5-10.5) mg/dL Total Bilirubin (0.15-1.2) mg/dL AST (0-32) U/L ALT (0-33) U/L Alkaline Phosphata se (35-105) IU/L Troponin T Baselin e (0-10) ng/L Troponin T 120 Min [place] (0-10) ng/L Delta Troponin T (0-10) ABS# Total Protein (6.6-8.7) g/dL Albumin (3.5-5.2) g/dL Globulin (1.3-4.6) g/dL Imaging Data^: CXR: Radiologist's impression: [address] [address] XRay Report Signed Patient: Josi Caraballo Unit #: [id number] : 1975 Age/Sex: 45 / F ADM Date: 07/27/20 Loc: ER Room/Bed: Attending Dr: Ordering Provider/Ordering MD: Jordi Levy MD Date of Service: 07/27/20 Procedure(s): XR chest 1V portable [id number] Accession Number(s): [id number] Report Number: [id number] PROCEDURE INFORMATION: Exam: XR Chest Exam date and time: 07/27/2020 10:23 PM Age: 45 years old Clinical indication: Prior surgery; Surgery type: Gb; Patient HX: Chest pain starting this evening. ; Additional info: Cp TECHNIQUE: Imaging protocol: XR of the chest. Views: 1 view. Total images: 1 COMPARISON: CR Ribs LEFT w PA Chest [id number] 07/17/2018 11:38 PM FINDINGS: Lungs: Unremarkable. No consolidation. Pleural spaces: Unremarkable. No pleural effusion. No pneumothorax. Heart/Mediastinum: Unremarkable. No cardiomegaly. Bones/joints: Unremarkable. XR/XR chest 1V portable [id number] IMPRESSION: No acute findings. CT Abd/Pel: Radiologist's impression: [address] [address] [address] Scan Report Signed Patient: Josi Caraballo Unit #: [id number] : 1975 Age/Sex: 45 / F ADM Date: 07/27/20 Loc: ER Room/Bed: Attending Dr: Ordering Provider/Ordering MD: Jordi Levy MD Date of Service: 07/28/20 Procedure(s): CT chest abd pel w con* Accession Number(s): [id number] Report Number: [id number] PROCEDURE INFORMATION: Exam: CT Chest With Contrast; Diagnostic Exam date and time: 07/28/2020 1:36 AM Age: 45 years old Clinical indication: Abdominal pain; Chest pain; Prior surgery; Surgery type: Insulin pump. Gb. ; Patient HX: Chest and epigastric pain. TECHNIQUE: Imaging protocol: Diagnostic computed tomography of the chest with contrast. Radiation optimization: All CT scans at this facility use at least one of these dose optimization techniques: automated exposure control; mA and/or kV adjustment per patient size (includes targeted exams where dose is matched to clinical indication); or iterative reconstruction. Contrast material: OMNI 300; Contrast volume: 95 ml; Contrast route: INTRAVENOUS (IV); COMPARISON: 1. CR XR chest 1V portable [id number] 2020-07-27 23:00 2. CR Ribs LEFT w PA Chest [id number] 2018-07-17 23:38 RADIATION DOSE METRICS: Total DLP (mGy-cm): 2376.66 FINDINGS: Limitations: Limited by patient's body habitus. Limited by patient's body habitus. Lungs: Minimal left lingular and lower lobe pleural thickening. Pleural spaces: Unremarkable. No pneumothorax. No pleural effusion. Heart: Mild coronary artery atherosclerotic calcifications. Aorta: Unremarkable. No aortic aneurysm. Lymph nodes: Unremarkable. No enlarged lymph nodes. Bones/joints: Mildly exaggerated thoracic kyphosis. Soft tissues: Unremarkable. IMPRESSION: No acute findings. PROCEDURE INFORMATION: Exam: CT Abdomen And Pelvis With Contrast Exam date and time: 07/28/2020 1:36 AM Age: 45 years old Clinical indication: Abdominal pain; Chest pain; Prior surgery; Surgery type: Insulin pump. Gb. ; Patient HX: Chest and epigastric pain. TECHNIQUE: Imaging protocol: Computed tomography of the abdomen and pelvis with contrast. Radiation optimization: All CT scans at this facility use at least one of these dose optimization techniques: automated exposure control; mA and/or kV adjustment per patient size (includes targeted exams where dose is matched to clinical indication); or iterative reconstruction. Contrast material: OMNI 300; Contrast volume: 95 ml; Contrast route: INTRAVENOUS (IV); COMPARISON: 1. CR XR chest 1V portable [id number] 2020-07-27 23:00 2. CR Ribs LEFT w PA Chest [id number] 2018-07-17 23:38 RADIATION DOSE METRICS: Total DLP (mGy-cm): 2376.66 FINDINGS: Limitations: Limited by patient's body habitus. Limited by patient's body habitus. Liver: Normal. No mass. Gallbladder and bile ducts: Cholecystectomy clips in the right upper quadrant. Pancreas: Unchanged 11 mm pancreatic or peripancreatic cystic lesion with Hounsfield unit of 19, question pseudocyst, cyst, or perhaps IPMN. Spleen: Normal. No splenomegaly. Adrenal glands: Normal. No mass. Kidneys and ureters: Mild moderate renal atrophy. Unchanged benign 9 mm right renal cyst. Stomach and bowel: Equivocal mucosal defects versus pseudo abnormality related to gastric folds,, consider follow-up for gastric ulceration and gastritis. Appendix: Normal appendix. Intraperitoneal space: Unremarkable. No free air. No significant fluid collection. Vasculature: Unremarkable. No abdominal aortic aneurysm. Lymph nodes: Unremarkable. No enlarged lymph nodes. Urinary bladder: Unremarkable as visualized. Reproductive: Anteverted uterus. Bones/joints: Mild degenerative joint disease. Soft tissues: Small fat protruding umbilical hernia. CT/CT chest abd pel w con* IMPRESSION: 1. Unchanged 11 mm pancreatic or peripancreatic cystic lesion with Hounsfield unit of 19, question pseudocyst, cyst, or perhaps IPMN. 2. Equivocal mucosal defects versus pseudo abnormality related to gastric folds,, consider follow-up for gastric ulceration and gastritis. EKG Data^: EKG 1: Attestation: I personally reviewed and interpreted this EKG as follows: EKG interpretation date: 07/28/20 EKG interpretation time: 00:30 Interpretation: nsr hr [address] or t wave abnormalities qrs 90 qtc 420 Discharge Plan Discharge Patient Disposition: Home Clinical Impression: Chest pain Qualifiers: Chest pain type: unspecified Qualified Code(s): R07.9 - Chest pain, unspecified Condition: Stable Prescriptions: New hydrocodone-acetaminophen 5-325 mg tablet 1 tab PO Q6H PRN (Reason: pain) Qty: 14 RF: 0 ondansetron 4 mg tablet,disintegrating 4 mg PO Q6H PRN (Reason: nausea and vomiting) Qty: 14 RF: 0 No Action oxycodone 5 mg tablet 5 mg PO BID PRNRF: 0 diclofenac sodium [Voltaren] 1 % gel 2 g TOPICAL QID Qty: 100 RF: 2 hydroxychloroquine 200 mg tablet 200 mg PO BID Qty: 60 RF: 4 methotrexate sodium 2.5 mg tablet See Rx Instructions PO .week Qty: 40 RF: 4 prednisone 2.5 mg tablet 2.5 mg PO BID Qty: 60 RF: 4 Humira Pen 40 mg/0.8 mL pen injector kit 40 mg SUBCUT Q14D Qty: 2 RF: 4 Novolog PenFill U-100 Insulin 100 unit/mL cartridge See Rx Instructions SUBCUT .COMPLEX RF: 0 baclofen 20 mg tablet 20 mg PO BID RF: 0 atorvastatin 10 mg tablet 10 mg PO ONCE RF: 0 Motegrity 2 mg tablet 2 mg PO QDAY 30 Days Qty: 30 RF: 6 aspirin [Adult Low Dose Aspirin] 81 mg tablet,delayed release (DR/EC) 81 mg PO DAILY Qty: 90 RF: 4 Chantix Continuing Month Box 1 mg tablet 1 mg PO BID Qty: 56 RF: 3 celecoxib 200 mg capsule See Rx Instructions .ROUTE .COMPLEX Qty: 60 RF: 3 cetirizine 10 mg tablet See Rx Instructions .ROUTE .COMPLEX Qty: 30 RF: 5 trazodone 50 mg tablet See Rx Instructions .ROUTE .COMPLEX Qty: 60 RF: 1 folic acid 1 mg tablet 1 mg PO DAILY Qty: 90 RF: 1 fluticasone propionate [Flonase Allergy Relief] 50 mcg/actuation spray,suspension 2 spray intranasal DAILY Qty: 16 RF: 3 dexlansoprazole [Dexilant] 60 mg capsule,biphase delayed releas See Rx Instructions .ROUTE .COMPLEX Qty: 90 RF: 0 furosemide 20 mg tablet See Rx Instructions .ROUTE .COMPLEX Qty: 90 RF: 0 Discharge Orders: Discharge ED (Routine); Ordered 07/28/20 Ordered By: Jordi Levy Referrals: Laura Reich MD [Primary Care Provider] - Discharge Diet: Advance as tolerated Discharge Activity: Resume usual activity Patient Instructions: Abdominal Pain (ED), Opioid Safety Coding Level of Care Code ED Digital Art Director for Chg Fwd Exam Comprehensive
[2020-07-27 23:39] LABS: Alanine Aminotransferase 17 U/L (0-33); Alkaline Phosphatase 52 IU/L (35-105); Aspartate Amino Transferase 14 U/L (0-32); Blood Urea Nitrogen 16 mg/dL (6-20); Calcium 8.2 mg/dL (8.5-10.5); Carbon Dioxide 25 mmol/L (22-29); Chloride 107 mmol/L (98-107); Globulin 1.6 g/dL (1.3-4.6); Glomerular Filtration Rate 67.7 mL/min (90-130); Glucose 79 mg/dL (65-115); Osmolality Calculated 288 mOsm/kg (285-295); Sodium 139 mmol/L (136-145); Total Bilirubin 0.2 mg/dL (0.15-1.2); Total Protein 5.6 g/dL (6.6-8.7)
[2020-07-27 23:41] LABS: Troponin(5th) Baseline 6 ng/L (0-10)
[2020-07-28 00:13] LABS: Glucose Point of Care 65 mg/dL (70-110)
--- NOTE | 2020-07-28 00:21 | ECG_ITS ---
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 Measurements Intervals [place] Rate: 93 P: 67 NC: 140 QRS: 70 QRSD: 90 T: 33 QT: 369 QTc: 460 Interpretive Statements SINUS RHYTHM LOW QRS VOLTAGE IN PRECORDIAL LEADS [QRS DEFLECTION < 1.0 mV IN CHEST LEADS] NONSPECIFIC ST & T-WAVE ABNORMALITY Compared to ECG 07/18/2018 02:39:16 Low QRS voltage now present T-wave abnormality now present Electronically Signed On 07-29-2020 7:48:17 CDT by Philly Szymanski M.D. [id number]
[2020-07-28] MEDS: dextrose 50% syringe 50 mL 25 ML IVP (00:26)
[2020-07-28 01:17] VITALS: BP 142/76; PULSE 86; RESP 16; O2SAT 96
[2020-07-28 01:33] LABS: Glucose Point of Care 128 mg/dL (70-110)
--- NOTE | 2020-07-28 01:35 | CTR_ITS ---
PROCEDURE INFORMATION: Exam: CT Chest With Contrast; Diagnostic Exam date and time: 07/28/2020 1:36 AM Age: 45 years old Clinical indication: Abdominal pain; Chest pain; Prior surgery; Surgery type: Insulin pump. Gb. ; Patient HX: Chest and epigastric pain. TECHNIQUE: Imaging protocol: Diagnostic computed tomography of the chest with contrast. Radiation optimization: All CT scans at this facility use at least one of these dose optimization techniques: automated exposure control; mA and/or kV adjustment per patient size (includes targeted exams where dose is matched to clinical indication); or iterative reconstruction. Contrast material: OMNI 300; Contrast volume: 95 ml; Contrast route: INTRAVENOUS (IV); COMPARISON: 1. CR XR chest 1V portable [id number] 2020-07-27 23:00 2. CR Ribs LEFT w PA Chest [id number] 2018-07-17 23:38 RADIATION DOSE METRICS: Total DLP (mGy-cm): 2376.66 FINDINGS: Limitations: Limited by patient's body habitus. Limited by patient's body habitus. Lungs: Minimal left lingular and lower lobe pleural thickening. Pleural spaces: Unremarkable. No pneumothorax. No pleural effusion. Heart: Mild coronary artery atherosclerotic calcifications. Aorta: Unremarkable. No aortic aneurysm. Lymph nodes: Unremarkable. No enlarged lymph nodes. Bones/joints: Mildly exaggerated thoracic kyphosis. Soft tissues: Unremarkable. IMPRESSION: No acute findings. PROCEDURE INFORMATION: Exam: CT Abdomen And Pelvis With Contrast Exam date and time: 07/28/2020 1:36 AM Age: 45 years old Clinical indication: Abdominal pain; Chest pain; Prior surgery; Surgery type: Insulin pump. Gb. ; Patient HX: Chest and epigastric pain. TECHNIQUE: Imaging protocol: Computed tomography of the abdomen and pelvis with contrast. Radiation optimization: All CT scans at this facility use at least one of these dose optimization techniques: automated exposure control; mA and/or kV adjustment per patient size (includes targeted exams where dose is matched to clinical indication); or iterative reconstruction. Contrast material: OMNI 300; Contrast volume: 95 ml; Contrast route: INTRAVENOUS (IV); COMPARISON: 1. CR XR chest 1V portable [id number] 2020-07-27 23:00 2. CR Ribs LEFT w PA Chest [id number] 2018-07-17 23:38 RADIATION DOSE METRICS: Total DLP (mGy-cm): 2376.66 FINDINGS: Limitations: Limited by patient's body habitus. Limited by patient's body habitus. Liver: Normal. No mass. Gallbladder and bile ducts: Cholecystectomy clips in the right upper quadrant. Pancreas: Unchanged 11 mm pancreatic or peripancreatic cystic lesion with Hounsfield unit of 19, question pseudocyst, cyst, or perhaps IPMN. Spleen: Normal. No splenomegaly. Adrenal glands: Normal. No mass. Kidneys and ureters: Mild moderate renal atrophy. Unchanged benign 9 mm right renal cyst. Stomach and bowel: Equivocal mucosal defects versus pseudo abnormality related to gastric folds,, consider follow-up for gastric ulceration and gastritis. Appendix: Normal appendix. Intraperitoneal space: Unremarkable. No free air. No significant fluid collection. Vasculature: Unremarkable. No abdominal aortic aneurysm. Lymph nodes: Unremarkable. No enlarged lymph nodes. Urinary bladder: Unremarkable as visualized. Reproductive: Anteverted uterus. Bones/joints: Mild degenerative joint disease. Soft tissues: Small fat protruding umbilical hernia. CT/CT chest abd pel w con* IMPRESSION: 1. Unchanged 11 mm pancreatic or peripancreatic cystic lesion with Hounsfield unit of 19, question pseudocyst, cyst, or perhaps IPMN. 2. Equivocal mucosal defects versus pseudo abnormality related to gastric folds,, consider follow-up for gastric ulceration and gastritis. Radiation Dose CTDIVOL = (mGy): DLP = 2376.66~2376.66 (mGy-cm)
[2020-07-28] MEDS: iohexol 300 mg/mL 100 mL Btl IV (01:47)
[2020-07-28] MEDS: HYDROmorphone 1 mg/mL INJ 1 mL IVP (02:15)
[2020-07-28 02:17] VITALS: BP 124/70; PULSE 85; RESP 19; O2SAT 97
[2020-07-28 03:00] VITALS: BP 114/69; PULSE 82; RESP 19; O2SAT 97
== END 2020-07-28 03:00 | disposition home or self-care (01) ==
PROVIDERS: Emergency Provider Emergency Medicine; PCP Family Medicine
DX: R07.9 Chest pain, unspecified (principal); Z79.4 Long term (current) use of insulin; Z79.82 Long term (current) use of aspirin; I10 Essential (primary) hypertension; E78.5 Hyperlipidemia, unspecified; E10.40 Type 1 diabetes mellitus with diabetic neuropathy, unspecified; F17.210 Nicotine dependence, cigarettes, uncomplicated
CPT/HCPCS: 36415; 36416; 71045; 71260; 74177; 80053; 82962; 84484; 85025; 93005; 96374; 96375; 99284; 99291; J1170; J2270; J2405; Q9967

== ENCOUNTER → 2020-08-10 12:51 | Outpatient (BNVA) | payer MEDICAID, SELFPAY | PROVIDERS: PCP Family Medicine; Visit Provider Internal Medicine Rheumatology | DX: M06.00 Rheumatoid arthritis without rheumatoid factor, unspecified site (principal); Z79.899 Other long term (current) drug therapy | CPT/HCPCS: 36415; 80076; 82565; 85025; 86140 ==

== ENCOUNTER → 2020-08-17 12:57 | Outpatient (BNVA) | payer MEDICAID, SELFPAY | PROVIDERS: PCP Family Medicine; Visit Provider Internal Medicine Rheumatology | DX: M06.041 Rheumatoid arthritis without rheumatoid factor, right hand (principal); M06.042 Rheumatoid arthritis without rheumatoid factor, left hand; Z79.899 Other long term (current) drug therapy; E10.65 Type 1 diabetes mellitus with hyperglycemia; Z79.4 Long term (current) use of insulin; Z96.41 Presence of insulin pump (external) (internal); F17.210 Nicotine dependence, cigarettes, uncomplicated | CPT/HCPCS: 99214 ==

== ENCOUNTER 2020-08-23 10:44 | Outpatient (CLI) | payer MEDICAID, SELFPAY ==
--- NOTE | 2020-08-23 11:00 | MR_ITS ---
WS: [id number] MRI THORACIC SPINE WITHOUT CONTRAST TECHNIQUE: Sagittal T1, T2 and STIR imaging. Axial T2 imaging. Noncontrast imaging obtained. CLINICAL INFORMATION: SPINAL STENOSIS, THORACIC REGION COMPARISON: MRI 2018 and FINDINGS: Mild thoracic curve. Disc bulging worse at T10-T11 and T11-T12 . Left pericentral protrusion T10-T11 is slightly more prominent compared to previous with slight indentation on the thoracic cord with mil d central canal stenosis. T10-11: Small left pericentral disc protrusion with slight indentation on the thoracic cord. Mild dilma tral canal stenosis. Mild facet arthropathy. Foramen are patent. T11-12: Small central disc protrusion with mild central canal stenosis. Slight contact of the lower t horacic cord. Foramen are patent. T12-L1: Tiny left pericentral protrusion. Spinal canal and foramen are patent. Moderate facet arthropathy in the lower thoracic spine. Normal visualized thoracic aorta. Adrenal gla nds are normal. Right renal cyst. MR/MR thoracic spin wo con* [id number] IMPRESSION: 1. Mild thoracic curve. No acute compression fractures. 2. No high-grade central canal stenosis. Cord signal is normal. 3. Small left pericentral protrusion T10-11 is slightly more prominent compare d to previous with slight indentation on the thoracic cord. 4. Mild central canal stenosis at T10-T11 and T11-T12 5. No other significant changes from previous.
== END 2020-08-23 10:45 | disposition home or self-care (01) ==
PROVIDERS: PCP Family Medicine; Visit Provider Anesthesiology Pain Medicine
DX: M48.04 Spinal stenosis, thoracic region (principal); M51.24 Other intervertebral disc displacement, thoracic region
CPT/HCPCS: 72146

== ENCOUNTER → 2020-09-28 10:49 | Outpatient (BNVA) | payer MEDICAID, SELFPAY | PROVIDERS: PCP Family Medicine; Visit Provider Internal Medicine Rheumatology | DX: F17.200 Nicotine dependence, unspecified, uncomplicated (principal); Z71.89 Other specified counseling; Z79.899 Other long term (current) drug therapy; M06.00 Rheumatoid arthritis without rheumatoid factor, unspecified site | CPT/HCPCS: 36415; 80076; 82565; 85025; 86140 ==

== ENCOUNTER → 2020-12-06 13:51 | Outpatient (BNVA) | payer MEDICAID, SELFPAY | PROVIDERS: PCP Family Medicine; Visit Provider Internal Medicine Rheumatology | DX: M06.041 Rheumatoid arthritis without rheumatoid factor, right hand (principal); M06.042 Rheumatoid arthritis without rheumatoid factor, left hand; Z79.899 Other long term (current) drug therapy; M70.61 Trochanteric bursitis, right hip; Y93.9 Activity, unspecified; E10.65 Type 1 diabetes mellitus with hyperglycemia; Z79.4 Long term (current) use of insulin; Z96.41 Presence of insulin pump (external) (internal); Z71.89 Other specified counseling; F17.210 Nicotine dependence, cigarettes, uncomplicated | CPT/HCPCS: 99214 ==

== ENCOUNTER → 2021-03-14 10:40 | Outpatient (BNVA) | payer MEDICAID, SELFPAY | PROVIDERS: PCP Family Medicine; Visit Provider Family Medicine | DX: E10.65 Type 1 diabetes mellitus with hyperglycemia (principal); Z79.899 Other long term (current) drug therapy | CPT/HCPCS: 80053; 83036; 85025 ==

== ENCOUNTER 2021-03-20 11:40 | Outpatient (RCR) | payer MEDICAID, SELFPAY | END 2021-03-31 23:59 | disposition home or self-care (01) | LOC: SPT 11:40 | PROVIDERS: PCP Family Medicine; Referring Provider Anesthesiology Pain Medicine; Visit Provider Anesthesiology Pain Medicine | DX: M48.00 Spinal stenosis, site unspecified (principal); M51.9 Unspecified thoracic, thoracolumbar and lumbosacral intervertebral disc disorder | CPT/HCPCS: 97161 ==

== ENCOUNTER 2021-04-01 06:00 | Outpatient (RCR) | payer MEDICAID, SELFPAY | END 2021-05-01 23:59 | disposition home or self-care (01) | LOC: SPT 06:00 | PROVIDERS: PCP Family Medicine; Referring Provider Anesthesiology Pain Medicine; Visit Provider Anesthesiology Pain Medicine | DX: M54.6 Pain in thoracic spine (principal); M54.51 Vertebrogenic low back pain; G89.4 Chronic pain syndrome | CPT/HCPCS: 97530 ==

== ENCOUNTER → 2021-04-06 11:17 | Outpatient (BNVA) | payer MEDICAID, SELFPAY | PROVIDERS: PCP Family Medicine; Visit Provider Internal Medicine Rheumatology | DX: M06.041 Rheumatoid arthritis without rheumatoid factor, right hand (principal); M06.042 Rheumatoid arthritis without rheumatoid factor, left hand; M15.9 Polyosteoarthritis, unspecified; Z79.899 Other long term (current) drug therapy; E10.9 Type 1 diabetes mellitus without complications; Z79.4 Long term (current) use of insulin; Z96.41 Presence of insulin pump (external) (internal); M70.61 Trochanteric bursitis, right hip; Y93.9 Activity, unspecified; Z71.85 Encounter for immunization safety counseling; F17.210 Nicotine dependence, cigarettes, uncomplicated | CPT/HCPCS: 99214 ==

== ENCOUNTER 2021-05-02 06:00 | Outpatient (RCR) | payer MEDICAID, SELFPAY | END 2021-05-29 23:59 | disposition home or self-care (01) | LOC: SPT 06:00 | PROVIDERS: PCP Family Medicine; Referring Provider Anesthesiology Pain Medicine; Visit Provider Anesthesiology Pain Medicine | DX: M54.6 Pain in thoracic spine (principal); M54.51 Vertebrogenic low back pain; G89.4 Chronic pain syndrome | CPT/HCPCS: 97530 ==

== ENCOUNTER 2021-05-30 06:00 | Outpatient (RCR) | payer MEDICAID, SELFPAY | END 2021-06-29 23:59 | disposition home or self-care (01) | LOC: SPT 06:00 | PROVIDERS: PCP Family Medicine; Referring Provider Anesthesiology Pain Medicine; Visit Provider Anesthesiology Pain Medicine | DX: M54.6 Pain in thoracic spine (principal); M54.51 Vertebrogenic low back pain; G89.4 Chronic pain syndrome | CPT/HCPCS: 97530 ==

== ENCOUNTER → 2021-06-01 15:07 | Outpatient (BNVA) | payer MEDICAID, SELFPAY | PROVIDERS: PCP Family Medicine; Visit Provider Family Medicine | DX: N39.0 Urinary tract infection, site not specified (principal) | CPT/HCPCS: 81000 ==

== ENCOUNTER → 2021-06-05 10:48 | Outpatient (BNVA) | payer MEDICAID, SELFPAY | PROVIDERS: PCP Family Medicine; Referring Provider Family Medicine; Visit Provider Specialist | DX: M67.431 Ganglion, right wrist (principal) | CPT/HCPCS: 73110 ==

== ENCOUNTER 2021-06-30 06:00 | Outpatient (RCR) | payer MEDICAID, SELFPAY | END 2021-07-29 23:59 | disposition home or self-care (01) | LOC: SPT 06:00 | PROVIDERS: PCP Family Medicine; Referring Provider Anesthesiology Pain Medicine; Visit Provider Anesthesiology Pain Medicine | DX: M48.00 Spinal stenosis, site unspecified (principal); M51.9 Unspecified thoracic, thoracolumbar and lumbosacral intervertebral disc disorder | CPT/HCPCS: 97110 ==

== ENCOUNTER 2021-07-17 18:34 | Emergency (ER) | payer MEDICAID, SELFPAY ==
[2021-07-17 18:38] VITALS: BP 136/71; PULSE 91; RESP 18; TEMP 36.9; O2SAT 97; BMI 41.1
--- NOTE | 2021-07-17 19:16 | XRR_ITS ---
PROCEDURE INFORMATION: Exam: XR Chest Exam date and time: 07/17/2021 7:32 PM Age: 46 years old Clinical indication: Other: Dizzy, swelling on right side of face TECHNIQUE: Imaging protocol: XR of the chest. Views: 1 view. COMPARISON: CT chest abd pel w con* 07/28/2020 2:01 AM FINDINGS: Lungs: The lung bases are suboptimally assessed due to technique however the upper lungs are clear of focal consolidation. Pleural spaces: Unremarkable. No pleural effusion. No pneumothorax. Heart/Mediastinum: Cardiac silhouette appears normal in size. No obvious vascular congestion. Bones/joints: No acute osseous findings. Other findings: Single view was submitted. XR/XR chest 1V portable [id number] IMPRESSION: No obvious acute consolidation. Suboptimal lung base assessment. Followup including lateral view may be obtained if clinically indicated.
--- NOTE | 2021-07-17 19:16 | ECG_ITS ---
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 Measurements Intervals [place] Rate: 78 P: 66 ME: 131 QRS: 75 QRSD: 86 T: 49 QT: 379 QTc: 433 Interpretive Statements SINUS RHYTHM LOW QRS VOLTAGE IN PRECORDIAL LEADS [QRS DEFLECTION < 1.0 mV IN CHEST LEADS] Compared to ECG 07/28/2020 00:30:29 T-wave abnormality no longer present Electronically Signed On 07-18-2021 7:23:58 CDT by Philly Szymanski M.D. [id number]
--- NOTE | 2021-07-17 19:16 | CTR_ITS ---
PROCEDURE INFORMATION: Exam: CT Head Without Contrast Exam date and time: 07/17/2021 7:32 PM Age: 46 years old Clinical indication: Dizziness; Prior surgery; Additional info: Dizzy TECHNIQUE: Imaging protocol: Computed tomography of the head without contrast. Radiation optimization: All CT scans at this facility use at least one of these dose optimization techniques: automated exposure control; mA and/or kV adjustment per patient size (includes targeted exams where dose is matched to clinical indication); or iterative reconstruction. COMPARISON: CT head wo con* [id number] 02/15/2019 1:09 PM RADIATION DOSE METRICS: Total DLP (mGy-cm): 855.1 FINDINGS: Brain: Normal. No hemorrhage. Unremarkable white matter. No mass effect. Cerebral ventricles: No ventriculomegaly. Paranasal sinuses: Visualized sinuses are unremarkable. No fluid levels. Mastoid air cells: Visualized mastoid air cells are well aerated. Bones/joints: Unremarkable. No acute fracture. Soft tissues: Unremarkable. CT/CT head wo con* [id number] IMPRESSION: No acute intracranial abnormality.
--- NOTE | 2021-07-17 19:24 | ED_ITS ---
HPI - Dizziness General: Chief Complaint: Dizziness Stated Complaint: dizzy, swelling to R side of face Time Seen by Provider: 07/17/21 19:11 Source: patient Mode of arrival: ambulatory Limitations: no limitations History of Present Illness: HPI Narrative: 46-year-old female who is here with multiple complaints. She states that over the last 5 to 6 days she has been having some nausea abdominal cramping she is also been having dizziness states she has had some right facial pain some dyspnea at times low-grade fevers. She was seen by her PCP 2 days ago diagnosed with a possible GI bug but states that she still is having all the symptoms. States that she feels like the room spins at times but is not currently denies any fever but states she been running a temp in the . No dysuria no abdominal pain besides the cramping. Associated symptoms: Reports nausea; Denies chest pain or chills Review of Systems Const: Denies: fever(s), chills, body aches or change in appetite Eyes: Denies: blurry vision or eye discomfort ENMT: Denies: throat pain or dental pain Card: Denies: chest pain Resp: Denies: dyspnea GI: Reports: nausea : Denies: dysuria Musc: Denies: neck pain or back pain Skin/Breast: Denies: rash Neuro: Reports: weakness in extremities and dizziness Psych: Denies: depression Fadi/Lymph: Denies: easy bruising All/Imm: Denies: urticaria PFSH ED PFSH: Medical History Anxiety Bulging lumbar disc Chronic constipation DDD (degenerative disc disease) Diabetes mellitus type 1- pump Essential (primary) hypertension GERD (gastroesophageal reflux disease) High risk medication use Hyperlipidemia Immunization counseling Immunization counseling Insomnia Leukocytosis Neuropathy Nicotine addiction Onychodystrophy PAD (peripheral artery disease) Removal of other organ (partial) (total) as the cause of abnormal reaction of the patient, or of later complication, without mention of misadventure at the time of the procedure partial removal of spleen and pancreace 2006 performed in [place] S/P angiogram of extremity Seronegative rheumatoid arthritis Seronegative rheumatoid arthritis of both hands Sleep disorder Spinal stenosis Thoracic disc disease Visual snow syndrome Surgical History History of dental surgery History of esophagogastroduodenoscopy (EGD) S/P section S/P cholecystectomy S/P tubal ligation 1996 Family History Mother Diabetes Hypertension Grandfather Diabetes Maternal Grandmother Diabetes Maternal Father Heart disease Hypertension Family/Other Breast cancer Maternal Aunt and Paternal Aunts Sister Uterine cancer Other Hypercholesterolemia Social History Smoking and tobacco status: never smoked Alcohol intake: current Alcohol intake frequency: holidays/special occasions on ly Lives independently: Yes Household members: significant other Marital status: Single Current occupational status: employed Current occupation: Part-time works from home History of recent travel: No Physical Exam Const: COMMON NORMALS: no acute distress, patient oriented x3 and healthy appearing HENMT: COMMON NORMALS: normocephalic and atraumatic HEAD & SCALP: normocephalic and atraumatic Eye: COMMON NORMALS: Equal, round and reactive pupils present and EOMs intact bilaterally PUPIL: Yes Equal, round and reactive pupils present Neck/C-Spine: COMMON NORMALS: full ROM and supple Chest: COMMONS NORMALS: normal inspection of the chest and normal palpation of entire chest wall Resp: COMMON NORMALS: normal respiratory effort, No retractions, No use of accessory muscles and clear to auscultation bilaterally AUSCULTATION: clear t o auscultation bilaterally Cardio: COMMON NORMALS: regular rate, regular rhythm and No murmurs present (Cardio) RATE: regular rate RHYTHM: regular rhythm GI: COMMON NORMALS: Normal to inspection, nondistended, normoactive bowel sounds present, Soft to palpation, non-tender and no masses PALPATION: Yes Soft to palpation Extremity: COMMON NORMALS: normal to inspection and full ROM Neuro: COMMON NORMALS: patient oriented x3, moves all extremities and no focal motor deficits Psych: COMMON NORMALS: mental status grossly normal, Normal thought process present and cooperative THOUGHT PROCESS: Normal thought process present Skin: COMMON NORMALS: no rashes or lesions noted and no wounds GENERAL SKIN EXAM: no rashes or lesions noted Course Vital Signs: Vital signs: Vital Signs Temperature 98.4 F 07/17/21 18:38 Pulse Rate 84 07/17/21 19:42 Respiratory Rate 24 H 07/17/21 19:42 Blood Pressure 137/77 07/17/21 19:42 Pulse Oximetry 97 07/17/21 18:38 MDM - Dizziness Medical Decision Making Patient presents here with dizziness along with some nausea patient's well- appearing here feels much improved after Antivert CT head here blood works all normal we will prescribe patient meclizine for home she is to follow-up with PCP and return if worsening she understands agrees to plan. Lab Data : 07/17/21 20:02 07/17/21 20:02 Radiology Impressions Chest X-Ray 07/17/21 19:16 IMPRESSION: No obvious acute consolidation. Suboptimal lung base assessment. Followup including lateral view may be obtained if clinically indicated. Head CT 07/17/21 19:16 IMPRESSION: No acute intracranial abnormality. Laboratory Results WBC 9.9 10^3/uL (4.0-10.0) 07/17/21 20:02 RBC 5.03 10^6/uL (4.1-5.3) 07/17/21 20:02 Hgb 14.6 g/dL (11.5-15.3) 07/17/21 20:02 Hct 45.8 % (37.0-47.0) 07/17/21 20:02 MCV 91.1 fl (81-99) 07/17/21 20:02 MCH 29.0 pg (28.0-34.0) 07/17/21 20:02 MCHC 31.9 g/dL (30.0-36.0) 07/17/21 20:02 RDW 14.2 % (12.1-15.1) 07/17/21 20:02 Plt Count 185 10^3/cmm (130-400) 07/17/21 20:02 MPV 11.9 fL (7.4-10.4) H 07/17/21 20:02 Neut % (Auto) 54.1 % 07/17/21 20: Lymph % (Auto) 33.3 % 07/17/21 20:02 [place] % (Auto) 9.0 % 07/17/21 20:02 Eos % (Auto) 1.8 % 07/17/21 20:02 Baso % (Auto) 1.5 % 07/17/21 20:02 Neut # (Auto) 5.37 10^3/uL (1.8-7.7) 07/17/21 20:02 Lymph # (Auto) 3.3 10^3/uL (0.8-4.8) 07/17/21 20:02 [place] # (Auto) 0.9 10^3/uL (0.2-0.9) 07/17/21 20:02 Eos # (Auto) 0.2 10^3/uL (0.0-0.8) 07/17/21 20: Baso # (Auto) 0.2 10^3/uL (0.0-0.1) H 07/17/21 20:02 Nucleated RBC % (auto) 0 % 07/17/21 20: Nucleated RBCs # 0.0 /100WBC 07/17/21 20:02 Sodium 140 mmol/L (136-145) 07/17/21 20: Potassium 4.2 mmol/L (3.5-5.1) 07/17/21 20: Chloride 106 mmol/L (98-107) 07/17/21 20: Carbon Dioxide 25 mmol/L (22-29) 07/17/21 20: Anion Gap 13.2 (5-19) 07/17/21 20:02 BUN 8 mg/dL (6-20) 07/17/21 20: Creatinine 0.9 mg/dL (0.5-0.9) 07/17/21 20:02 GFR Calculation 67.4 mL/min (90-130) L 07/17/21 20: Glucose 74 mg/dL (65-115) 07/17/21 20: Calculated Osmolality 287 mOsm/kg (285-295) 07/17/21 20: Calcium 8.3 mg/dL (8.5-10.5) L 07/17/21 20:02 Total Bilirubin 0.2 mg/dL (0.15-1.2) 07/17/21 20: AST 16 U/L (0-32) 07/17/21 20: ALT 14 U/L (0-33) 07/17/21 20:02 Alkaline Phosphatase 63 IU/L (35-105) 07/17/21 20: Total Protein 6.6 g/dL (6.6-8.7) 07/17/21 20:02 Albumin 4.1 g/dL (3.5-5.2) 07/17/21 20:02 Globulin 2.5 g/dL (1.3-4.6) 07/17/21 20:02 EKG Data EKG 1: I personally reviewed and interpreted this EKG as follows: EKG interpretation date: 07/17/21 EKG interpretation time: 20:03 Interpretation: nsr hr [address] or t wave abnormalities qrs 86 qtc 412 Discharge Plan Discharge Patient Disposition: Home Clinical Impression: Dizziness, Nausea Condition: Stable Prescriptions: New ondansetron 4 mg tablet,disintegrating 4 mg PO Q6H PRN (Reason: nausea and vomiting) Qty: 14 0RF meclizine 25 mg tablet 25 mg PO TID PRN (Reason: dizziness) Qty: 20 0RF No Action oxycodone 5 mg tablet 10 mg PO BID PRN0RF Label Comments: RX by Dr Faith prednisone 5 mg tablet 5 mg PO DAILY Qty: 90 1RF Enbrel SureClick 50 mg/mL (1 mL) pen injector 50 mg SUBCUT .Q7 days Qty: 4 3RF hydroxychloroquine 200 mg tablet 200 mg PO BID Qty: 60 4RF leflunomide 10 mg tablet 10 mg PO DAILY Qty: 30 3RF cephalexin 500 mg capsule 500 mg PO BID Qty: 14 0RF Novolog PenFill U-100 Insulin 100 unit/mL cartridge See Rx Instructions SUBCUT .COMPLEX 0RF Label Comments: via pump Rx Instructions: SUBCUT ; atorvastatin 10 mg tablet 10 mg PO ONCE 0RF lidocaine-epinephrine (PF) 2 %-1:200,000 solution 1 ml SUBCUT ONCE Qty: 1 0RF nicotine (polacrilex) 4 mg lozenge 4 mg buccal Q4H PRN (Reason: nicotine cravings) Qty: 72 2RF Rx Instructions: Please issue hooper flavor if available. albuterol sulfate 90 mcg/actuation HFA aerosol inhaler 1 inh inhalation QID Qty: 8.5 2RF cetirizine 10 mg tablet See Rx Instructions .ROUTE .COMPLEX Qty: 30 5RF Dose Instruction: TAKE ONE TABLET BY MOUTH DAILY Rx Instructions: TAKE ONE TABLET BY MOUTH DAILY fluticasone propionate 50 mcg/actuation spray,suspension See Rx Instructions .ROUTE .COMPLEX Qty: 16 3RF Dose Instruction: instill ONE OR TWO SPRAY IN EACH NOSTRIL DAILY Rx Instructions: instill ONE OR TWO SPRAY IN EACH NOSTRIL DAILY furosemide 20 mg tablet See Rx Instructions .ROUTE .COMPLEX Qty: 90 0RF Dose Instruction: TAKE ONE TABLET BY MOUTH EVERY MORNING Rx Instructions: TAKE ONE TABLET BY MOUTH EVERY MORNING aspirin 81 mg tablet,delayed release (DR/EC) See Rx Instructions .ROUTE .COMPLEX Qty: 90 0RF Dose Instruction: TAKE ONE TABLET BY MOUTH EVERY DAY Rx Instructions: TAKE ONE TABLET BY MOUTH EVERY DAY Motegrity 2 mg tablet See Rx Instructions .ROUTE .COMPLEX Qty: 30 6RF Dose Instruction: TAKE ONE TABLET BY MOUTH EVERY DAY FOR 30 DAYS Rx Instructions: TAKE ONE TABLET BY MOUTH EVERY DAY FOR 30 DAYS Dexilant 60 mg capsule,biphase delayed releas See Rx Instructions .ROUTE .COMPLEX Qty: 90 0RF Dose Instruction: TAKE ONE CAPSULE BY MOUTH DAILY Rx Instructions: TAKE ONE CAPSULE BY MOUTH DAILY trazodone 50 mg tablet See Rx Instructions .ROUTE .COMPLEX Qty: 60 5RF Dose Instruction: TAKE TWO TABLETS BY MOUTH AT BEDTIME NEEDED FOR insomnia Rx Instructions: TAKE TWO TABLETS BY MOUTH AT BEDTIME NEEDED FOR insomnia celecoxib 200 mg capsule See Rx Instructions .ROUTE .COMPLEX Qty: 60 5RF Dose Instruction: TAKE ONE CAPSULE BY MOUTH TWICE DAILY Rx Instructions: TAKE ONE CAPSULE BY MOUTH TWICE DAILY ondansetron 4 mg tablet,disintegrating 4 mg PO Q6H PRN (Reason: nausea and vomiting) Qty: 14 0RF Discharge Orders: Discharge ED (Routine); Ordered 07/17/21 Ordered By: Jordi Levy Referrals: Earnest Adams DO [Primary Care Provider] - 1-3 days Discharge Diet: Advance as tolerated Discharge Activity: Resume usual activity Patient Instructions: Dizziness (ED) Coding Level of Care Code ED Bacteriology Technician for g Fwd Exam Comprehensive
[2021-07-17 19:42] VITALS: BP 137/77; PULSE 84; RESP 24
[2021-07-17] MEDS: meclizine 25 mg tablet 50 MG PO (19:51)
[2021-07-17] MEDS: sodium chloride 0.9% 1,000 ML 999 ML IV (20:05)
[2021-07-17] MEDS: ondansetron 2 mg/ML SDV 2 mL 4 MG IVP (20:05)
[2021-07-17 20:07] LABS: Basophils # 0.2 10^3/uL (0.0-0.1); Basophils % 1.5 %; Eosinophils # 0.2 10^3/uL (0.0-0.8); Eosinophils % 1.8 %; Hematocrit 45.8 % (37.0-47.0); Hemoglobin 14.6 g/dL (11.5-15.3); Lymphocytes # 3.3 10^3/uL (0.8-4.8); Lymphocytes % 33.3 %; Mean Corpuscular HGB Conc 31.9 g/dL (30.0-36.0); Mean Corpuscular Volume 91.1 fl (81-99); Mean Platelet Volume 11.9 fL (7.4-10.4); Monocytes # 0.9 10^3/uL (0.2-0.9); Neutrophils # 5.37 10^3/uL (1.8-7.7); Neutrophils % 54.1 %; Nucleated Red Blood Cells % 0 %; Platelet Count 185 10^3/cmm (130-400); Red Blood Count 5.03 10^6/uL (4.1-5.3); Red Cell Distribution Width 14.2 % (12.1-15.1); White Blood Count 9.9 10^3/uL (4.0-10.0)
[2021-07-17 20:27] LABS: Alanine Aminotransferase 14 U/L (0-33); Albumin Level 4.1 g/dL (3.5-5.2); Alkaline Phosphatase 63 IU/L (35-105); Anion Gap 13.2 (5-19); Aspartate Amino Transferase 16 U/L (0-32); Blood Urea Nitrogen 8 mg/dL (6-20); Calcium 8.3 mg/dL (8.5-10.5); Carbon Dioxide 25 mmol/L (22-29); Chloride 106 mmol/L (98-107); Globulin 2.5 g/dL (1.3-4.6); Glomerular Filtration Rate 67.4 mL/min (90-130); Glucose 74 mg/dL (65-115); Osmolality Calculated 287 mOsm/kg (285-295); Potassium 4.2 mmol/L (3.5-5.1); Sodium 140 mmol/L (136-145); Total Bilirubin 0.2 mg/dL (0.15-1.2); Total Protein 6.6 g/dL (6.6-8.7)
[2021-07-17 20:59] LABS: Add Urine Microscopic? NO; Charge for UA Resulting for Rev
[2021-07-17 21:05] LABS: Bilirubin Urine Neg (Negative); Blood Urine Neg (Negative); Glucose Urine UA Norm (Normal); Ketones Urine Negative (Negative); Leukocyte Esterase Urine Negative (Negative); Nitrate Urine Negative (Negative); Protein Urine Neg (Negative); Specific Gravity, Urine 1.015 (1.005-1.030); Urine Appearance Clear (CLEAR); Urine Color Yellow (Yellow); Urobilinogen Urine Norm (Negative); pH Urine 5 (5-7)
== END 2021-07-17 21:04 | disposition home or self-care (01) ==
PROVIDERS: Emergency Provider Emergency Medicine; PCP Family Medicine
DX: R42 Dizziness and giddiness (principal); R11.0 Nausea; R53.1 Weakness; R51.9 Headache, unspecified; R22.0 Localized swelling, mass and lump, head
CPT/HCPCS: 70450; 71045; 80053; 81003; 85025; 93005; 96361; 96374; 99284; J2405; J7030; J8597

== ENCOUNTER 2021-07-30 06:00 | Outpatient (RCR) | payer SELFPAY | END 2021-08-29 23:59 | disposition home or self-care (01) | LOC: SPT 06:00 | PROVIDERS: PCP Family Medicine; Referring Provider Anesthesiology Pain Medicine; Visit Provider Anesthesiology Pain Medicine | DX: M54.6 Pain in thoracic spine (principal); M54.51 Vertebrogenic low back pain; G89.4 Chronic pain syndrome | CPT/HCPCS: 97530 ==

== ENCOUNTER → 2021-08-03 11:53 | Outpatient (BNVA) | payer MEDICAID, SELFPAY | PROVIDERS: PCP Family Medicine; Visit Provider Internal Medicine Rheumatology | DX: R20.0 Anesthesia of skin (principal); R20.2 Paresthesia of skin | CPT/HCPCS: 95908 ==

== ENCOUNTER 2021-08-29 10:56 | Outpatient (CLI) | payer MEDICAID, SELFPAY ==
--- NOTE | 2021-08-29 11:12 | CT_ITS ---
WS: [id number] CT NECK TECHNIQUE: Contrast-enhanced CT of the neck with coronal and sagittal reformatted images. CLINICAL INFORMATION: OTALGIA COMPARISON: None. DLP: 284.[address] scans at [facility] use at least one of these dose optimization techniques: automated e xposure control; mA and/or kV adjustment per patient size (includes targeted exams where dose is matc hed to clinical indication); or iterative reconstruction. FINDINGS: Paranasal sinuses and mastoid air cells are well aerated. Normal posterior nasopharynx. Normal paraph aryngeal fat. Palpable marker overlying the RIGHT parotid gland. No evidence of underlying subcutaneous cystic or s olid mass. No suspicious underlying lesions. Normal platysma. Normal parotid glands. Normal submandib ular glands. No cervical lymphadenopathy. Lung apices are well aerated. No evidence of supraglottic or glottic mass. Normal piriform sinuses. N ormal subglottic airway. Mild cervical curve. CT/CT neck w con* [id number] IMPRESSION: 1. Palpable marker along the RIGHT inferior parotid gland. No underlying cysti c or solid lesions. Normal subcutaneous fat and platysma in the RIGHT neck. No suspicious RIGHT neck abnormalities. 2. Normal salivary glands. 3. No evidence of supraglottic or glottic mass. 4. No cervical lymphadenopathy. 5. Paranasal sinuses and mastoid air cells well aerated.
[2021-08-29] MEDS: iohexol 300 mg/mL 50 mL Btl IV (12:03)
== END 2021-08-29 10:57 | disposition home or self-care (01) ==
LOC: RAD 10:57
PROVIDERS: PCP Family Medicine; Visit Provider Specialist
DX: H92.09 Otalgia, unspecified ear (principal)
CPT/HCPCS: 70491

== ENCOUNTER 2021-08-30 06:00 | Outpatient (RCR) | payer MEDICAID, SELFPAY | END 2021-09-28 23:59 | disposition home or self-care (01) | LOC: SPT 06:00 | PROVIDERS: PCP Family Medicine; Referring Provider Anesthesiology Pain Medicine; Visit Provider Anesthesiology Pain Medicine | DX: M54.6 Pain in thoracic spine (principal); M54.51 Vertebrogenic low back pain; G89.4 Chronic pain syndrome | CPT/HCPCS: 97110; 97530 ==

== ENCOUNTER → 2021-09-13 14:52 | Outpatient (BNVA) | payer MEDICAID, SELFPAY | PROVIDERS: PCP Family Medicine; Visit Provider Specialist | DX: R20.0 Anesthesia of skin (principal); R20.2 Paresthesia of skin | CPT/HCPCS: 99213 ==

== ENCOUNTER 2021-09-29 | Outpatient (RCR) | payer MEDICAID, SELFPAY | END 2021-10-29 23:59 | disposition home or self-care (01) | LOC: SPT | PROVIDERS: PCP Family Medicine; Referring Provider Anesthesiology Pain Medicine; Visit Provider Anesthesiology Pain Medicine | DX: M54.6 Pain in thoracic spine (principal); M54.51 Vertebrogenic low back pain; G89.4 Chronic pain syndrome | CPT/HCPCS: 97110; 97530 ==

== ENCOUNTER → 2021-11-23 08:31 | Outpatient (BNVA) | payer MEDICAID, SELFPAY | PROVIDERS: PCP Family Medicine; Referring Provider Specialist; Visit Provider Specialist | DX: G56.11 Other lesions of median nerve, right upper limb (principal) | CPT/HCPCS: 95886; 95908; 99202 ==

== ENCOUNTER 2022-02-08 13:52 | Emergency (ER) | payer MEDICAID, SELFPAY ==
[2022-02-08 13:57] VITALS: BP 123/66; PULSE 96; RESP 20; TEMP 37.1; O2SAT 93; BMI 39.1
--- NOTE | 2022-02-08 14:04 | ED_ITS ---
HPI - Abdominal Pain General: Chief Complaint: Abdominal Pain Stated Complaint: low abd pain Time Seen by Provider: 02/08/22 13:54 History of Present Illness: Ms. Caraballo is a 46-year-old lady with history of hypertension, hyperlipidemia, GERD, diabetes, tobaccoism, COPD presenting to the emergency department due to abdominal pain. Onset of symptoms was few days ago without known specific provoking factor or event, no reported trauma. Since that time she has had right lower quadrant pain that radiates down her leg. No associated GI symptoms. Intensity symptoms is moderate to severe. Worse with movement and palpation. Does have a history of cholecystectomy and . Patient reports going through menopause. no other specific changes in health, exacerbating, or alleviating factors identified. Onset (ago): day(s) Pain Consistency: constant Location: RLQ Severity: moderate Radiation: other Migration to: no migration Exacerbating factors: eating and movement Relieving factors: nothing Associated Symptoms: Reports no associated symptoms Review of Systems General: Reports: 10 or more systems reviewed and unremarkable except in HPI and below PFSH ED PFSH: Medical History Anxiety Bulging lumbar disc Chronic constipation DDD (degenerative disc disease) Diabetes mellitus type 1- pump Essential (primary) hypertension GERD (gastroesophageal reflux disease) High risk medication use Hyperlipidemia Immunization counseling Immunization counseling Insomnia Leukocytosis Neuropathy Nicotine addiction Onychodystrophy PAD (peripheral artery disease) Removal of other organ (partial) (total) as the cause of abnormal reaction of the patient, or of later complication, without mention of misadventure at the time of the procedure partial removal of spleen and pancreace 2005 performed in [place] S/P angiogram of extremity Seronegative rheumatoid arthritis Seronegative rheumatoid arthritis of both hands Sleep disorder Spinal stenosis Thoracic disc disease Visual snow syndrome Surgical History History of dental surgery History of esophagogastroduodenoscopy (EGD) S/P section S/P cholecystectomy S/P tubal ligation 1996 Family History Mother Diabetes Hypertension Grandfather Diabetes Maternal Grandmother Diabetes Maternal Father Heart disease Hypertension Family/Other Breast cancer Maternal Aunt and Paternal Aunts Sister Uterine cancer Other Hypercholesterolemia Social History Smoking and tobacco status: current every day smoker cigarettes Packs smoked per day: 2.0 Years cigarettes smoked: 36 Alcohol intake: current Alcohol intake frequency: holidays/special occasions only Lives independently: Yes Household members: significant other Marital status: Single Current occupational status: employed Current occupation: Part-time works from home History of recent travel: No Physical Exam Const: COMMON NORMALS: alert GENERAL APPEARANCE: cooperative and well developed HENMT: COMMON NORMALS: normocephalic and atraumatic HEAD & SCALP: normocephalic and atraumatic Eye: COMMON NORMALS: conjunctivae normal CONJUNCTIVA: Yes conjunctivae normal SCLERA: sclerae normal Neck/C-Spine: COMMON NORMALS: supple GENERAL: Yes trachea midline Resp: COMMON NORMALS: clear to auscultation bilaterally EFFORT & INSPECTION: Yes able to speak in complete sentences AUSCULTATION: clear to auscultation bilaterally Cardio: COMMON NORMALS: regular rate and regular rhythm RATE: regular rate RHYTHM: regular rhythm GI: COMMON NORMALS: Soft to palpation PALPATION: Yes Soft to palpation, Yes Tenderness to palpation present (GI) Details: RLQ, No Guarding due to palpation present (GI), No Rigid due to palpation and Yes Rebound tenderness present Extremity: GENERAL: Yes normal exam except as noted and No edema Neuro: COMMON NORMALS: moves all extremities SENSORIUM/ORIENTATION: Yes alert and No Orientation impaired Psych: COMMON NORMALS: mental status grossly normal and Normal thought process present THOUGHT PROCESS: Normal thought process present Course Vital Signs: Vital signs: Vital Signs Temperature 98.7 F 02/08/22 13:57 Pulse Rate 79 02/08/22 18:16 Respiratory Rate 19 H 02/08/22 17:10 Blood Pressure 123/67 02/08/22 18:16 Pulse Oximetry 100 02/08/22 18:16 Oxygen Delivery Me thod 02/08/22 17:00 MDM - Abdominal Pain Medical Decision Making 46-year-old lady presenting with abdominal pain without other associated GI symptoms. Patient is nontoxic on clinical exam and vitals are satisfactory. Labs with no leukocytosis, normal hemoglobin. Perhaps minimal evidence of dehydration on metabolic panel. Glucose low but patient's mentation is adequate and able to tolerate p.o. intake. Urinalysis without evidence of urinary tract infection or hematuria. CT abdomen pelvis with enlarged appendix however no secondary signs of appendicitis. Abnormal fluid collection in the uterus. Pelvic ultrasound with abnormal hypoechoic fluid collection in uterus possibly obstructed horn of a septate uterus. Discussed case with Dr. Ramos of the [facility] and patient is appropriate for outpatient follow-up regarding uterine abnormality. Plan to have her contact clinic and get into clinic soon for likely hysteroscopy. Upon reassessment patient somewhat improved. Most likely cause of symptoms is unspecified abdominal pain possibly related to abnormal uterine findings or much less likely early appendicitis. Strict return precautions and secondary signs of appendicitis discussed with the patient. Given normal laboratory studies and possible other etiology of symptoms I do not believe that the patient requires inpatient management or surgical consultation at this time. The results of ED evaluation were discussed with the patient including prescri ptions and/or symptomatic cares (if applicable) including appropriate and responsible use, followup plan, and return precautions. The patient verbalized understanding and felt safe for discharge. Medical Records I reviewed the patient's medical records. Lab Data I reviewed the patient's lab results. 02/08/22 14:40 02/08/22 14:40 Labs/Radiology: Radiology Impressions Abdomen/Pelvis CT 02/08/22 14:51 IMPRESSION: 1. Very tiny amount of free fluid in the pelvis. 2. The appendix has increased in size since 07/28/2020. Appendix measures top normal size but there is no adjacent inflammation. Unless this is very early appendiceal changes associated with appendicitis this does not appear to be appendicitis. 3. Abnormal fluid distended endometrium. Follow-up transvaginal pelvic ultrasound can be obtained on a nonurgent basis to exclude neoplasm. 4. Small RIGHT ovarian follicles. Pelvic/Transvag US 02/08/22 15:41 IMPRESSION: Abnormal hypoechoic fluid collection in the uterus possibly an obstructed horn of a septate uterus. Further evaluation with MRI suggested. Laboratory Results WBC 8.8 10^3/uL (4.0-10.0) 02/08/22 14:40 RBC 4.56 10^6/uL (4.1-5.3) 02/08/22 14:40 Hgb 13.5 g/dL (11.5-15.3) 02/08/22 14:40 Hct 41.5 % (37.0-47.0) 02/08/22 14:40 MCV 91.0 fl (81-99) 02/08/22 14:40 MCH 29.6 pg (28.0-34.0) 02/08/22 14:40 MCHC 32.5 g/dL (30.0-36.0) 02/08/22 14:40 RDW 14.2 % (12.1-15.1) 02/08/22 14:40 Plt Count 210 10^3/cmm (130-400) 02/08/22 14:40 MPV 11.8 fL (7.4-10.4) H 02/08/22 14:40 Neut % (Auto) 45.7 % 02/08/22 14:40 Lymph % (Auto) 43.1 % 02/08/22 14:40 [place] % (Auto) 6.7 % 02/08/22 14:40 Eos % (Auto) 2.6 % 02/08/22 14:40 Baso % (Auto) 1.7 % 02/08/22 14:40 Neut # (Auto) 4.02 10^3/uL (1.8-7.7) 02/08/22 14:40 Lymph # (Auto) 3.8 10^3/uL (0.8-4.8) 02/08/22 14:40 [place] # (Auto) 0.6 10^3/uL (0.2-0.9) 02/08/22 14:40 Eos # (Auto) 0.2 10^3/uL (0.0-0.8) 02/08/22 14:40 Baso # (Auto) 0.2 10^3/uL (0.0-0.1) H 02/08/22 14:40 Nucleated RBC % (auto) 0 % 02/08/22 14:40 Nucleated RBCs # 0.0 /100WBC 02/08/22 14:40 Sodium 135 mmol/L (136-145) L 02/08/22 14:40 Potassium 4.1 mmol/L (3.5-5.1) 02/08/22 14:40 Chloride 102 mmol/L (98-107) 02/08/22 14:40 Carbon Dioxide 23 mmol/L (22-29) 02/08/22 14:40 Anion Gap 14.1 (5-19) 02/08/22 14:40 BUN 10 mg/dL (6-20) 02/08/22 14:40 Creatinine 0.9 mg/dL (0.5-0.9) 02/08/22 14:40 GFR Calculation 67.4 mL/min (90-130) L 02/08/22 14:40 Glucose 121 mg/dL (65-115) H 02/08/22 14:40 POC Glucose 65 mg/dL (70-110) L 02/08/22 16:15 Calculated Osmolality 280 mOsm/kg (285-295) L 02/08/22 14:40 Calcium 8.9 mg/dL (8.5-10.5) 02/08/22 14:40 Total Bilirubin 0.3 mg/dL (0.15-1.2) 02/08/22 14:40 AST 14 U/L (0-32) 02/08/22 14:40 ALT 12 U/L (0-33) 02/08/22 14:40 Alkaline Phosphatase 59 U/L (35-105) 02/08/22 14:40 Total Protein 6.1 g/dL (6.6-8.7) L 02/08/22 14:40 Albumin 3.5 g/dL (3.5-5.2) 02/08/22 14:40 Globulin 2.6 g/dL (1.3-4.6) 02/08/22 14:40 Lipase 12 U/L (13-60) L 02/08/22 14:40 HCG, Qual Negative (Negative) 02/08/22 15:30 Urine Color Yellow (Yellow) 02/08/22 15:30 Urine Appearance Clear (CLEAR) 02/08/22 15:30 Urine pH 5 (5-7) 02/08/22 15:30 Ur Specific [place] 1.010 (1.005-1.030) 02/08/22 15:30 Urine Protein Neg (Negative) 02/08/22 15:30 Urine Glucose (UA) Norm (Normal) 02/08/22 15:30 Urine Ketones Negative (Negative) 02/08/22 15:30 Urine Blood Neg (Negative) 02/08/22 15:30 Urine Nitrate Negative (Negative) 02/08/22 15:30 Urine Bilirubin Neg (Negative) 02/08/22 15:30 Urine Urobilinogen Norm mg/dL (Negative) 02/08/22 15:30 Ur Leukocyte Esterase Negative (Negative) 02/08/22 15:30 Discharge Plan Discharge Patient Disposition: Home Clinical Impression: Abdominal pain, Abnormal ultrasound of uterus Condition: Stable Prescriptions: New oxycodone 5 mg tablet 5 mg PO Q4H PRN (Reason: pain) Qty: 10 0RF Reglan 10 mg tablet 10 mg PO Q6H PRN (Reason: gastroparesis) Qty: 20 0RF No Action oxycodone 5 mg tablet 10 mg PO TID PRN (Reason: Pain) Label Comments: RX by Dr Faith Novojayjay PenFill U-100 Insulin 100 unit/mL cartridge See Rx Instructions .ROUTE .COMPLEX Label Comments: via pump Rx Instructions: via pump atorvastatin 10 mg tablet 10 mg PO DAILY ondansetron 4 mg tablet,disintegrating 4 mg PO Q6H PRN (Reason: nausea and vomiting) Qty: 14 0RF tizanidine 4 mg Tablet 4 mg PO Q8H PRN (Reason: Muscle Pain) estradiol 1 mg Tablet 1 mg PO DAILY Rx Instructions: ON FOR 16 DAYS, OFF FOR 12 DAYS levothyroxine 50 mcg tablet 50 mcg PO DAILY pantoprazole 40 mg Tablet,Delayed Release (Dr/Ec) 40 mg PO BID lisinopril 10 mg Tablet 10 mg PO DAILY progesterone micronized 200 mg Capsule 200 mg PO DAILY Rx Instructions: ON FOR 12 DAYS, OFF FOR 16 DAYS lactulose 10 gram/15 mL Solution 10 g PO DAILY PRN (Reason: Constipation) celecoxib 200 mg capsule 200 mg PO BID trazodone 50 mg tablet 100 mg PO BEDTIME cetirizine 10 mg tablet 10 mg PO DAILY aspirin 81 mg tablet,delayed release (DR/EC) 81 mg PO DAILY furosemide 20 mg tablet 20 mg PO DAILY albuterol sulfate 90 mcg/actuation HFA aerosol inhaler 1 inh inhalation QID PRN (Reason: Shortness Of Breath) fluticasone propionate 50 mcg/actuation spray,suspension 50 mcg intranasal DAILY PRN (Reason: Nasal Congestion) Dexilant 60 mg capsule,biphase delayed releas 60 mg PO DAILY Motegrity 2 mg tablet 2 mg PO DAILY meclizine 25 mg tablet 25 mg PO TID PRN (Reason: dizziness) Qty: 20 0RF Discharge Orders: Discharge ED (Routine); Ordered 11/10/22 Ordered By: Gordo Flores Referrals: Navid Alegria MD [Primary Care Provider] - Discharge Diet: Advance as tolerated and Clear Liquid Discharge Activity: Increase activity as tolerated Patient Instructions: Abdominal Pain (ED), Opioid Safety, Pain Management Activity Restrictions/Additional Instructions: Thank you for visiting the emergency department. You were seen and evaluated for abdominal pain. The exact cause of your symptoms is unclear as discussed. You do have abnormal imaging of the uterus which requires follow-up with Dr. Ramos. Please call her clinic at [phone] for a follow-up appointment and let them know that you were seen in the emergency department and I discussed your findings with Dr. Ramos. Your appendix does appear mildly enlarged however there is no other evidence of appendicitis. Please watch for additional infectious symptoms. Please follow-up with a primary care provider as well. Return to the emergency department for uncontrolled symptoms or anything else that you are concerned about a feel needs emergency department evaluation. Coding Level of Care Code ED Asphalt Smoother for Chg Fwd Exam Comprehensive
[2022-02-08 14:38] VITALS: RESP 18
[2022-02-08] MEDS: morphine 4 mg/mL SDV 1 mL IVP ×2 (14:38→17:10)
[2022-02-08] MEDS: ondansetron 2 mg/ML SDV 2 mL 4 MG IVP (14:38)
[2022-02-08 14:46] LABS: Basophils # 0.2 10^3/uL (0.0-0.1); Basophils % 1.7 %; Eosinophils # 0.2 10^3/uL (0.0-0.8); Eosinophils % 2.6 %; Hematocrit 41.5 % (37.0-47.0); Hemoglobin 13.5 g/dL (11.5-15.3); Lymphocytes # 3.8 10^3/uL (0.8-4.8); Lymphocytes % 43.1 %; Mean Corpuscular HGB Conc 32.5 g/dL (30.0-36.0); Mean Corpuscular Hemoglobin 29.6 pg (28.0-34.0); Mean Platelet Volume 11.8 fL (7.4-10.4); Monocytes # 0.6 10^3/uL (0.2-0.9); Monocytes % 6.7 %; Neutrophils # 4.02 10^3/uL (1.8-7.7); Neutrophils % 45.7 %; Nucleated Red Blood Cells % 0 %; Platelet Count 210 10^3/cmm (130-400); Red Blood Count 4.56 10^6/uL (4.1-5.3); Red Cell Distribution Width 14.2 % (12.1-15.1); White Blood Count 8.8 10^3/uL (4.0-10.0)
--- NOTE | 2022-02-08 14:51 | CT_ITS ---
WS: [id number] CT ABDOMEN AND PELVIS WITH CONTRAST HISTORY: RLQ pain, rebound tenderness TECHNIQUE: Imaging performed of the abdomen and pelvis with IV contrast. Single phase imaging of the abdomen. Coronal and sagittal reformats are submitted. All CT scans at [facility] use at [address] one of these dose optimization techniques: automated exposure control; mA and/or kV adjustment per patient size (includes targeted exams where dose is matched to clinical indication); or iterative re construction. IV CONTRAST: Omnipaque 350; 100 mL IV. Oral contrast: No DLP: 974.71 mGy.cm COMPARISON: 07/28/2020 Lower thorax: Very small pleural nodules LEFT lower lobe similar to 07/28/2020. Heart is normal size. No hiatal hernia. Liver/biliary system: Normal size with no intrahepatic dilatation. Gallbladder: Status post cholecystectomy. Pancreas: Normal size pancreas and pancreatic duct. No adjacent inflammation. Spleen: Normal size spleen. No mass or infarct. Adrenal glands: Normal. Right kidney: Normal size kidney. Cortical hypodensities are too small to characterize. No solid mass . Left kidney: Normal. Aorta: Mild atherosclerosis with no aneurysm. Lymphadenopathy: None. Free fluid: Very tiny amount of free fluid in the cul-de-sac. GI tract: Stomach is not distended. There is an exophytic nodule from the posterior stomach which may be a small diverticulum measuring 10 mm. May be associated with the pancreas. Nevertheless, no cano e. Thought to be IPMN on prior studies. No small bowel obstruction. The appendix is identified and this larger caliber than on prior studies. There is still a small amount of air within the appendix and the appendix couldn't retrocecal with t he tip extending towards the inferior liver. Appendix measures up to 7 mm. Not a lot of adjacent infl ammation but the diameter has increased in size. Abdominal wall: Unremarkable abdominal wall. No hernia. Pelvis: Small amount of free fluid in the pelvis. The uterus is anteverted. Endometrium is distended up to 1.8 cm. Small follicles associated with the RIGHT ovary. Bones: Unremarkable. CT/CT abdomen pelvis w con* [id number] IMPRESSION: 1. Very tiny amount of free fluid in the pelvis. 2. The appendix has increased in size since 07/28/2020. Appendix measures top n ormal size but there is no adjacent inflammation. Unless this is very early cindi endiceal changes associated with appendicitis this does not appear to be append icitis. 3. Abnormal fluid distended endometrium. Follow-up transvaginal pelvic ultraso und can be obtained on a nonurgent basis to exclude neoplasm. 4. Small RIGHT ovarian follicles.
[2022-02-08] MEDS: iohexol 350 mg/mL 500 mL Btl (per mL) IV (15:01)
[2022-02-08 15:03] LABS: Alanine Aminotransferase 12 U/L (0-33); Albumin Level 3.5 g/dL (3.5-5.2); Alkaline Phosphatase 59 U/L (35-105); Anion Gap 14.1 (5-19); Aspartate Amino Transferase 14 U/L (0-32); Blood Urea Nitrogen 10 mg/dL (6-20); Calcium 8.9 mg/dL (8.5-10.5); Carbon Dioxide 23 mmol/L (22-29); Chloride 102 mmol/L (98-107); Globulin 2.6 g/dL (1.3-4.6); Glomerular Filtration Rate 67.4 mL/min (90-130); Glucose 121 mg/dL (65-115); Lipase 12 U/L (13-60); Osmolality Calculated 280 mOsm/kg (285-295); Potassium 4.1 mmol/L (3.5-5.1); Sodium 135 mmol/L (136-145); Total Bilirubin 0.3 mg/dL (0.15-1.2); Total Protein 6.1 g/dL (6.6-8.7)
[2022-02-08 15:27] VITALS: BP 119/54; O2SAT 98
[2022-02-08 15:39] LABS: Add Urine Microscopic? NO; Charge for UA Resulting for Rev
--- NOTE | 2022-02-08 15:41 | USR_ITS ---
PROCEDURE INFORMATION: Exam: US Pelvis Complete, Transabdominal and US Pelvis, Transvaginal Exam date and time: 02/08/2022 4:10 PM Age: 46 years old Clinical indication: Abdominal pain; Right lower quadrant; Additional info: Rlq pain TECHNIQUE: Imaging protocol: Real-time complete transabdominal and transvaginal pelvic ultrasound with image documentation. Transvaginal imaging was used for better evaluation of the endometrium, adnexa, and/or cervix. COMPARISON: CT abdomen pelvis w con* [id number] 02/08/2022 2:56 PM FINDINGS: Uterus: Uterus measures 7.8 x 4.5 x 5.7 cm. There is a hypoechoic area within the uterus measuring approximately 2 cm in diameter. This appears to be adjacent to the endometrial canal on the ultrasound images, however when correlated with the CT scan done earlier in the day this may be fluid within the right horn of a septate uterus. The cause for this is not certain as a definite mass is not identified but the findings may represent septate uterus with obstruction of the right horn. Further evaluation with MRI imaging may be helpful to confirm this suspicion and evaluate for any uterine abnormalities. Right ovary/adnexa: Right ovary measures 3.1 x 1.5 x 2.5 cm. There is a 1.8 cm sized simple right ovarian cyst or follicle. Left ovary/adnexa: Left ovary is not visualized as it is obscured by intestinal gas. Intraperitoneal space: No intraperitoneal fluid. Urinary bladder: Visualized portions of the urinary bladder unremarkable. US/US pelvic with transvaginal IMPRESSION: Abnormal hypoechoic fluid collection in the uterus possibly an obstructed horn of a septate uterus. Further evaluation with MRI suggested.
[2022-02-08 15:51] LABS: Bilirubin Urine Neg (Negative); Blood Urine Neg (Negative); Glucose Urine UA Norm (Normal); Ketones Urine Negative (Negative); Leukocyte Esterase Urine Negative (Negative); Nitrate Urine Negative (Negative); Protein Urine Neg (Negative); Urine Appearance Clear (CLEAR); Urine Color Yellow (Yellow); Urobilinogen Urine Norm (Negative); pH Urine 5 (5-7)
[2022-02-08 16:05] LABS: HCG, Serum Qual Negative (Negative)
[2022-02-08 16:18] LABS: Glucose Point of Care 65 mg/dL (70-110)
[2022-02-08 17:00] VITALS: BP 116/46; PULSE 79; O2SAT 98
[2022-02-08 17:10] VITALS: RESP 19; O2SAT 98
[2022-02-08 18:16] VITALS: BP 123/67; PULSE 79; O2SAT 100
--- NOTE | 2022-02-09 08:18 | DCPLANNER ---
Addendum entered by Magy Goddard 05/04/22 13:25: Patient had a follow up appointment scheduled with [facility] - patient did attend appointment. Addendum entered by Magy Goddard 02/21/22 09:35: Patient has a follow up appointment scheduled for April at 2:[address] Ramos at 2:00 at [facility]. Clinic will call patient with appointment information. Original Note: project/production manager imaging had message to schedule a follow up appointment for patient with [facility]. project/production manager imaging sent patients information to the front office staff at [facility]. Patients information will be printed and reviewed. Clinic will call patient with appointment information.
== END 2022-02-08 18:23 | disposition home or self-care (01) ==
PROVIDERS: Emergency Provider Emergency Medicine; PCP Family Medicine
DX: R10.9 Unspecified abdominal pain (principal); R93.89 Abnormal findings on diagnostic imaging of other specified body structures; Z79.82 Long term (current) use of aspirin; Z79.4 Long term (current) use of insulin; F17.210 Nicotine dependence, cigarettes, uncomplicated; E10.9 Type 1 diabetes mellitus without complications; I10 Essential (primary) hypertension; E78.5 Hyperlipidemia, unspecified; Z90.81 Acquired absence of spleen; Z90.411 Acquired partial absence of pancreas
CPT/HCPCS: 36416; 74177; 76830; 76856; 80053; 81003; 82962; 83690; 84703; 85025; 96374; 96375; 99285; J2270; J2405; Q9967

== ENCOUNTER 2022-02-12 12:17 | Emergency (ER) | payer MEDICAID, SELFPAY ==
[2022-02-12 12:26] VITALS: BP 127/77; PULSE 78; RESP 16; TEMP 36.6; O2SAT 97; BMI 39.3
[2022-02-12 14:11] LABS: Basophils # 0.1 10^3/uL (0.0-0.1); Basophils % 1.5 %; Eosinophils # 0.1 10^3/uL (0.0-0.8); Eosinophils % 1.4 %; Hematocrit 44.2 % (37.0-47.0); Hemoglobin 14.4 g/dL (11.5-15.3); Lymphocytes # 3.1 10^3/uL (0.8-4.8); Lymphocytes % 35.5 %; Mean Corpuscular HGB Conc 32.6 g/dL (30.0-36.0); Mean Corpuscular Hemoglobin 29.9 pg (28.0-34.0); Mean Corpuscular Volume 91.9 fl (81-99); Mean Platelet Volume 13.2 fL (7.4-10.4); Monocytes # 0.5 10^3/uL (0.2-0.9); Monocytes % 6.1 %; Neutrophils # 4.87 10^3/uL (1.8-7.7); Neutrophils % 55.2 %; Nucleated Red Blood Cells % 0 %; Platelet Count 132 10^3/cmm (130-400); Red Blood Count 4.81 10^6/uL (4.1-5.3); Red Cell Distribution Width 14.3 % (12.1-15.1); White Blood Count 8.8 10^3/uL (4.0-10.0)
[2022-02-12 14:23] LABS: Alanine Aminotransferase 13 U/L (0-33); Albumin Level 3.7 g/dL (3.5-5.2); Alkaline Phosphatase 66 U/L (35-105); Aspartate Amino Transferase 18 U/L (0-32); Blood Urea Nitrogen 8 mg/dL (6-20); Calcium 9.3 mg/dL (8.5-10.5); Carbon Dioxide 24 mmol/L (22-29); Chloride 102 mmol/L (98-107); Globulin 2.9 g/dL (1.3-4.6); Glomerular Filtration Rate 67.4 mL/min (90-130); Glucose 156 mg/dL (65-115); Lipase 11 U/L (13-60); Osmolality Calculated 284 mOsm/kg (285-295); Sodium 136 mmol/L (136-145); Total Bilirubin 0.2 mg/dL (0.15-1.2); Total Protein 6.6 g/dL (6.6-8.7)
[2022-02-12 14:24] LABS: Anion Gap 14.5 (5-19); Potassium 4.5 mmol/L (3.5-5.1)
[2022-02-12 14:50] LABS: Slide Review Slide Review Perform
--- NOTE | 2022-02-12 17:09 | ED_ITS ---
Documented by User: Hunter Kaminski DO 02/12/22 19:19 HPI - Abdominal Pain General: Chief Complaint: Abdominal Pain Stated Complaint: appendicitis hurts and fluid build up Time Seen by Provider: 02/12/22 16:57 Source: patient Mode of arrival: ambulatory History of Present Illness: 46-year-old female was seen 1 week ago in the emergency room she had a CT and a ultrasound ultrasound showed a fluid collection in the right uterine horn. There is also a small right ovarian cyst 1.8 cm. Reports worsening pain on the right side. Denies any dysuria urgency or frequency she has not had a bowel movement in 4 days. Patient is seen at the pain clinic has doubling up on her oxycodone. She is scheduled to see gynecology at a later date. She is insistent that something be done immediately. Patient and significant other at the bedside aggressive and belligerent when I first entered the room. Patient was screaming that a white count of 8.8 is elevated she was also angry when I advised her that the Accu- Chek done at the bedside of 84 normal Accu-Chek not considered low. MD elicited complaint: abdominal pain Pertinent past history: other (Ovarian cysts uterine fluid collection) Onset (ago): week(s) Pain Consistency: constant Location: Pelvis (Right) Quality: cramping Associated Symptoms: Reports bloating, constipation, GI cramping and nausea; Denies chills, dysuria, fever(s), hematochezia, hematuria and vomiting Review of Systems Const: Denies: fever(s) or chills Card: Denies: chest pain GI: Reports: abdominal pain, nausea, constipation, bloating and GI cramping; Denies: vomiting or hematochezia : Denies: dysuria, urinary frequency, urinary urgency or hematuria PFS ED PFSH: Medical History Anxiety Bulging lumbar disc Chronic constipation DDD (degenerative disc disease) Diabetes mellitus type 1- pump Essential (primary) hypertension GERD (gastroesophageal reflux disease) High risk medication use Hyperlipidemia Immunization counseling Immunization counseling Insomnia Leukocytosis Neuropathy Nicotine addiction Onychodystrophy PAD (peripheral artery disease) Removal of other organ (partial) (total) as the cause of abnormal reaction of the patient, or of later complication, without mention of misadventure at the time of the procedure partial removal of spleen and pancreace 2006 performed in [place] S/P angiogram of extremity Seronegative rheumatoid arthritis Seronegative rheumatoid arthritis of both hands Sleep disorder Spinal stenosis Thoracic disc disease Visual snow syndrome Surgical History History of dental surgery History of esophagogastroduodenoscopy (EGD) S/P section S/P cholecystectomy S/P tubal ligation 1996 Family History Mother Diabetes Hypertension Grandfather Diabetes Maternal Grandmother Diabetes Maternal Father Heart disease Hypertension Family/Other Breast cancer Maternal Aunt and Paternal Aunts Sister Uterine cancer Other Hypercholesterolemia Social History Smoking and tobacco status: current every day smoker cigarettes Packs smoked per day: 2.0 Years cigarettes smoked: 36 Alcohol intake: current Alcohol intake frequency: holidays/special occasions only Lives independently: Yes Household members: significant other Marital status: Single Current occupational status: employed Current occupation: Part-time works from home History of recent travel: No Physical Exam Const: NUTRITIONAL APPEARANCE: obese morbidly obese ORIENTATION/C ONSCIOUSNESS: Yes awake, Yes oriented to person, Yes oriented to place and Yes oriented to time HENMT: COMMON NORMALS: normocephalic, atraumatic and hearing grossly normal bilaterally HEAD & SCALP: normocephalic and atraumatic Resp: COMMON NORMALS: normal respiratory effort, No retractions, No use of accessory muscles and clear to auscultation bilaterally AUSCULTATION: clear to auscultation bilaterally Cardio: COMMON NORMALS: regular rate, regular rhythm and No murmurs present (Cardio) RATE: regular rate RHYTHM: regular rhythm GI: COMMON NORMALS: No hepatosplenomegaly present AUSCULTATION: Yes Hypoactive bowel sounds present PALPATION: Yes Tenderness to palpation present (GI), No Guarding due to palpation present (GI) and Yes No hepatosplenomegaly present OTHER: Abdominal exam inconsistent. With distraction patient will not have pain on the right side and then pain recurs shortly after. No pain on the right side with percussion. Extremity: COMMON NORMALS: normal to inspection, capillary refill normal, no clubbing, cyanosis or edema, no calf tenderness and no pedal edema Neuro: SENSORIUM/ORIENTATION: Yes oriented to person, Yes oriented to place and Yes oriented to time Psych: ATTITUDE: Yes Belligerent attititude/behavior present, Yes agitated and Yes hostile MOOD & AFFECT: Yes irritable and Yes hostile affect Skin: COMMON NORMALS: no rashes or lesions noted GENERAL SKIN EXAM: no rashes or lesions noted Course Vital Signs: Vital signs: Vital Signs Temperature 97.8 F 02/12/22 19:10 Pulse Rate 78 02/12/22 19:10 Respiratory Rate 19 H 02/12/22 19:10 Blood Pressure 127/77 02/12/22 19:10 Pulse Oximetry 97 02/12/22 19:10 Oxygen Delivery Me thod 02/12/22 17:54 MDM - Abdominal Pain Medical Decision Making Care signed out to Dr. Levy presents at change of shift. See final notes for diagnosis and disposition. Patient presents with abdominal pain CT did show constipation her blood work and CT were otherwise normal she is to follow-up with OB she is return if worsening we will place her on MiraLAX. Medical Records I reviewed the patient's medical records. Lab Data I reviewed the patient's lab results. : 02/12/22 13:44 02/12/22 13:44 Labs/Radiology: Radiology Impressions Abdomen/Pelvis CT 02/12/22 17:28 IMPRESSION: 1. Negative for acute inflammatory process in the abdomen or pelvis. 2. Lingular and left lower lobe atelectasis. 3. Cholecystectomy. 4. Constipation. Laboratory Results WBC 8.8 10^3/uL (4.0-10.0) 02/12/22 13:44 RBC 4.81 10^6/uL (4.1-5.3) 02/12/22 13:44 Hgb 14.4 g/dL (11.5-15.3) 02/12/22 13:44 Hct 44.2 % (37.0-47.0) 02/12/22 13:44 MCV 91.9 fl (81-99) 02/12/22 13:44 MCH 29.9 pg (28.0-34.0) 02/12/22 13:44 MCHC 32.6 g/dL (30.0-36.0) 02/12/22 13:44 RDW 14.3 % (12.1-15.1) 02/12/22 13:44 Plt Count 132 10^3/cmm (130-400) 02/12/22 13:44 MPV 13.2 fL (7.4-10.4) H 02/12/22 13:44 Neut % (Auto) 55.2 % 02/12/22 13:44 Lymph % (Auto) 35.5 % 02/12/22 13:44 [place] % (Auto) 6.1 % 02/12/22 13:44 Eos % (Auto) 1.4 % 02/12/22 13:44 Baso % (Auto) 1.5 % 02/12/22 13:44 Neut # (Auto) 4.87 10^3/uL (1.8-7.7) 02/12/22 13:44 Lymph # (Auto) 3.1 10^3/uL (0.8-4.8) 02/12/22 13:44 [place] # (Auto) 0.5 10^3/uL (0.2-0.9) 02/12/22 13:44 Eos # (Auto) 0.1 10^3/uL (0.0-0.8) 02/12/22 13:44 Baso # (Auto) 0.1 10^3/uL (0.0-0.1) 02/12/22 13:44 Nucleated RBC % (auto) 0 % 02/12/22 13:44 Nucleated RBCs # 0.0 /100WBC 02/12/22 13:44 Sodium 136 mmol/L (136-145) 02/12/22 13:44 Potassium 4.5 mmol/L (3.5-5.1) 02/12/22 13:44 Chloride 102 mmol/L (98-107) 02/12/22 13:44 Carbon Dioxide 24 mmol/L (22-29) 02/12/22 13:44 Anion Gap 14.5 (5-19) 02/12/22 13:44 BUN 8 mg/dL (6-20) 02/12/22 13:44 Creatinine 0.9 mg/dL (0.5-0.9) 02/12/22 13:44 GFR Calculation 67.4 mL/min (90-130) L 02/12/22 13:44 Glucose 156 mg/dL (65-115) H 02/12/22 13:44 POC Glucose 88 mg/dL (70-110) 02/12/22 17:19 Calculated Osmolality 284 mOsm/kg (285-295) L 02/12/22 13:44 Calcium 9.3 mg/dL (8.5-10.5) 02/12/22 13:44 Total Bilirubin 0.2 mg/dL (0.15-1.2) 02/12/22 13:44 AST 18 U/L (0-32) 02/12/22 13:44 ALT 13 U/L (0-33) 02/12/22 13:44 Alkaline Phosphatase 66 U/L (35-105) 02/12/22 13:44 Total Protein 6.6 g/dL (6.6-8.7) 02/12/22 13:44 Albumin 3.7 g/dL (3.5-5.2) 02/12/22 13:44 Globulin 2.9 g/dL (1.3-4.6) 02/12/22 13:44 Lipase 11 U/L (13-60) L 02/12/22 13:44 Discharge Plan Discharge Patient Disposition: Home Clinical Impression: Abdominal pain Qualifiers: Abdominal location: generalized Qualified Code(s): R10.84 - Generalized abdominal pain Condition: Stable Prescriptions: New Miralax 17 gram powder in packet 17 g PO DAILY PRN (Reason: constipation) Qty: 14 0RF No Action Novolog PenFill U-100 Insulin 100 unit/mL cartridge See Rx Instructions .ROUTE .COMPLEX Label Comments: via pump Rx Instructions: via pump tizanidine 4 mg Tablet 4 mg PO Q8H PRN (Reason: Muscle Pain) estradiol 1 mg Tablet 1 mg PO DAILY Rx Instructions: ON FOR 16 DAYS, OFF FOR 12 DAYS levothyroxine 50 mcg tablet 50 mcg PO DAILY pantoprazole 40 mg Tablet,Delayed Release (Dr/Ec) 40 mg PO BID lisinopril 10 mg Tablet 10 mg PO DAILY progesterone micronized 200 mg Capsule 200 mg PO DAILY Rx Instructions: ON FOR 12 DAYS, OFF FOR 16 DAYS lactulose 10 gram/15 mL Solution 10 g PO DAILY PRN (Reason: Constipation) celecoxib 200 mg capsule 200 mg PO BID trazodone 50 mg tablet 100 mg PO BEDTIME cetirizine 10 mg tablet 10 mg PO DAILY aspirin 81 mg tablet,delayed release (DR/EC) 81 mg PO DAILY furosemide 20 mg tablet 20 mg PO DAILY albuterol sulfate 90 mcg/actuation HFA aerosol inhaler 1 inh inhalation QID PRN (Reason: Shortness Of Breath) fluticasone propionate 50 mcg/actuation spray,suspension 50 mcg intranasal DAILY PRN (Reason: Nasal Congestion) dexlansoprazole [Dexilant] 60 mg capsule,biphase delayed releas 60 mg PO DAILY Motegrity 2 mg tablet 2 mg PO DAILY atorvastatin 40 mg tablet 40 mg PO BEDTIME oxycodone 10 mg tablet 10 mg PO TID PRN (Reason: Pain) Discharge Orders: Discharge ED (Routine); Ordered 02/12/22 Ordered By: Jordi Levy Referrals: Navid Alegria MD [Primary Care Provider] - 1-3 days Discharge Diet: Advance as tolerated Discharge Activity: Resume usual activity Patient Instructions: Abdominal Pain (ED) Coding Level of Care Code ED Instrumentation Manager for Chg Fwd Exam Comprehensive Documented by User: Jordi Levy MD 02/12/22 19:04 HPI - Abdominal Pain General: Chief Complaint: Abdominal Pain Stated Complaint: appendicitis hurts and fluid build up Time Seen by Provider: 02/12/22 16:57 [facility] ED PFSH: Medical History Anxiety Bulging lumbar disc Chronic constipation DDD (degenerative disc disease) Diabetes mellitus type 1- pump Essential (primary) hypertension GERD (gastroesophageal reflux disease) High risk medication use Hyperlipidemia Immunization counseling Immunization counseling Insomnia Leukocytosis Neuropathy Nicotine addiction Onychodystrophy PAD (peripheral artery disease) Removal of other organ (partial) (total) as the cause of abnormal reaction of the patient, or of later complication, without mention of misadventure at the t anusha of the procedure partial removal of spleen and pancreace 2006 performed in [place] S/P angiogram of extremity Seronegative rheumatoid arthritis Seronegative rheumatoid arthritis of both hands Sleep disorder Spinal stenosis Thoracic disc disease Visual snow syndrome Surgical History History of dental surgery History of esophagogastroduodenoscopy (EGD) S/P section S/P cholecystectomy S/P tubal ligation 1996 Family History Mother Diabetes Hypertension Grandfather Diabetes Maternal Grandmother Diabetes Maternal Father Heart disease Hypertension Family/Other Breast cancer Maternal Aunt and Paternal Aunts Sister Uterine cancer Other Hypercholesterolemia Social History Smoking and tobacco status: current every day smoker cigarettes Packs smoked per day: 2.0 Years cigarettes smoked: 36 Alcohol intake: current Alcohol intake frequency: holidays/special occasions only Lives independently: Yes Household members: significant other Marital status: Single Current occupational status: employed Current occupation: Part-time works from home History of recent travel: No Course Vital Signs: Vital signs: Vital Signs Temperature 97.8 F 02/12/22 19:10 Pulse Rate 78 02/12/22 19:10 Respiratory Rate 19 H 02/12/22 19:10 Blood Pressure 127/77 02/12/22 19:10 Pulse Oximetry 97 02/12/22 19:10 Oxygen Delivery Me thod 02/12/22 17:54 MDM - Abdominal Pain Medical Decision Making Patient presents with abdominal pain CT did show constipation her blood work and CT were otherwise normal she is to follow-up with OB she is return if worsening we will place her on MiraLAX. Lab Data : 02/12/22 13:44 02/12/22 13:44 Labs/Radiology: Radiology Impressions Abdomen/Pelvis CT 02/12/22 17:28 IMPRESSION: 1. Negative for acute inflammatory process in the abdomen or pelvis. 2. Lingular and left lower lobe atelectasis. 3. Cholecystectomy. 4. Constipation. Laboratory Results WBC 8.8 10^3/uL (4.0-10.0) 02/12/22 13:44 RBC 4.81 10^6/uL (4.1-5.3) 02/12/22 13:44 Hgb 14.4 g/dL (11.5-15.3) 02/12/22 13:44 Hct 44.2 % (37.0-47.0) 02/12/22 13:44 MCV 91.9 fl (81-99) 02/12/22 13:44 MCH 29.9 pg (28.0-34.0) 02/12/22 13:44 MCHC 32.6 g/dL (30.0-36.0) 02/12/22 13:44 RDW 14.3 % (12.1-15.1) 02/12/22 13:44 Plt Count 132 10^3/cmm (130-400) 02/12/22 13:44 MPV 13.2 fL (7.4-10.4) H 02/12/22 13:44 Neut % (Auto) 55.2 % 02/12/22 13:44 Lymph % (Auto) 35.5 % 02/12/22 13:44 [place] % (Auto) 6.1 % 02/12/22 13:44 Eos % (Auto) 1.4 % 02/12/22 13:44 Baso % (Auto) 1.5 % 02/12/22 13:44 Neut # (Auto) 4.87 10^3/uL (1.8-7.7) 02/12/22 13:44 Lymph # (Auto) 3.1 10^3/uL (0.8-4.8) 02/12/22 13:44 [place] # (Auto) 0.5 10^3/uL (0.2-0.9) 02/12/22 13:44 Eos # (Auto) 0.1 10^3/uL (0.0-0.8) 02/12/22 13:44 Baso # (Auto) 0.1 10^3/uL (0.0-0.1) 02/12/22 13:44 Nucleated RBC % (auto) 0 % 02/12/22 13:44 Nucleated RBCs # 0.0 /100WBC 02/12/22 13:44 Sodium 136 mmol/L (136-145) 02/12/22 13:44 Potassium 4.5 mmol/L (3.5-5.1) 02/12/22 13:44 Chloride 102 mmol/L (98-107) 02/12/22 13:44 Carbon Dioxide 24 mmol/L (22-29) 02/12/22 13:44 Anion Gap 14.5 (5-19) 02/12/22 13:44 BUN 8 mg/dL (6-20) 02/12/22 13:44 Creatinine 0.9 mg/dL (0.5-0.9) 02/12/22 13:44 GFR Calculation 67.4 mL/min (90-130) L 02/12/22 13:44 Glucose 156 mg/dL (65-115) H 02/12/22 13:44 POC Glucose 88 mg/dL (70-110) 02/12/22 17:19 Calculated Osmolality 284 mOsm/kg (285-295) L 02/12/22 13:44 Calcium 9.3 mg/dL (8.5-10.5) 02/12/22 13:44 Total Bilirubin 0.2 mg/dL (0.15-1.2) 02/12/22 13:44 AST 18 U/L (0-32) 02/12/22 13:44 ALT 13 U/L (0-33) 02/12/22 13:44 Alkaline Phosphatase 66 U/L (35-105) 02/12/22 13:44 Total Protein 6.6 g/dL (6.6-8.7) 02/12/22 13:44 Albumin 3.7 g/dL (3.5-5.2) 02/12/22 13:44 Globulin 2.9 g/dL (1.3-4.6) 02/12/22 13:44 Lipase 11 U/L (13-60) L 02/12/22 13:44 Discharge Plan Discharge Patient Disposition: Home Clinical Impression: Abdominal pain Qualifiers: Abdominal location: generalized Qualified Code(s): R10.84 - Generalized abdominal pain Condition: Stable Prescriptions: New Miralax 17 gram powder in packet 17 g PO DAILY PRN (Reason: constipation) Qty: 14 0RF No Action Novolog PenFill U-100 Insulin 100 unit/mL cartridge See Rx Instructions .ROUTE .COMPLEX Label Comments: via pump Rx Instructions: via pump tizanidine 4 mg Tablet 4 mg PO Q8H PRN (Reason: Muscle Pain) estradiol 1 mg Tablet 1 mg PO DAILY Rx Instructions: ON FOR 16 DAYS, OFF FOR 12 DAYS levothyroxine 50 mcg tablet 50 mcg PO DAILY pantoprazole 40 mg Tablet,Delayed Release (Dr/Ec) 40 mg PO BID lisinopril 10 mg Tablet 10 mg PO DAILY progesterone micronized 200 mg Capsule 200 mg PO DAILY Rx Instructions: ON FOR 12 DAYS, OFF FOR 16 DAYS lactulose 10 gram/15 mL Solution 10 g PO DAILY PRN (Reason: Constipation) celecoxib 200 mg capsule 200 mg PO BID trazodone 50 mg tablet 100 mg PO BEDTIME cetirizine 10 mg tablet 10 mg PO DAILY aspirin 81 mg tablet,delayed release (DR/EC) 81 mg PO DAILY furosemide 20 mg tablet 20 mg PO DAILY albuterol sulfate 90 mcg/actuation HFA aerosol inhaler 1 inh inhalation QID PRN (Reason: Shortness Of Breath) fluticasone propionate 50 mcg/actuation spray,suspension 50 mcg intranasal DAILY PRN (Reason: Nasal Congestion) dexlansoprazole [Dexilant] 60 mg capsule,biphase delayed releas 60 mg PO DAILY Motegrity 2 mg tablet 2 mg PO DAILY atorvastatin 40 mg tablet 40 mg PO BEDTIME oxycodone 10 mg tablet 10 mg PO TID PRN (Reason: Pain) Discharge Orders: Discharge ED (Routine); Ordered 02/12/22 Ordered By: Jordi Levy Referrals: Navid Alegria MD [Primary Care Provider] - 1-3 days Discharge Diet: Advance as tolerated Discharge Activity: Resume usual activity Patient Instructions: Abdominal Pain (ED) Coding Level of Care Code ED Instrumentation Manager for Hugog Fwd Exam Comprehensive
[2022-02-12 17:23] LABS: Glucose Point of Care 88 mg/dL (70-110)
--- NOTE | 2022-02-12 17:28 | CTR_ITS ---
PROCEDURE INFORMATION: Exam: CT Abdomen And Pelvis Without Contrast Exam date and time: 02/12/2022 6:05 PM Age: 46 years old Clinical indication: Abdominal pain; Localized; Lower; Prior surgery; Surgery type: Gb TECHNIQUE: Imaging protocol: Computed tomography of the abdomen and pelvis without contrast. Radiation optimization: All CT scans at this facility use at least one of these dose optimization techniques: automated exposure control; mA and/or kV adjustment per patient size (includes targeted exams where dose is matched to clinical indication); or iterative reconstruction. COMPARISON: CT abdomen pelvis w con* [id number] 02/08/2022 2:56 PM RADIATION DOSE METRICS: Total DLP (mGy-cm): 947.08 FINDINGS: Lungs: Lingular and left lower lobe atelectasis. Liver: Normal. No mass. Gallbladder and bile ducts: Cholecystectomy. Pancreas: Normal. No ductal dilation. Spleen: Normal. No splenomegaly. Adrenal glands: Normal. No mass. Kidneys and ureters: Normal. No hydronephrosis. Stomach and bowel: Constipation. Appendix: No evidence of appendicitis. Intraperitoneal space: Unremarkable. No free air. No significant fluid collection. Vasculature: Unremarkable. No abdominal aortic aneurysm. Lymph nodes: Unremarkable. No enlarged lymph nodes. Urinary bladder: Unremarkable as visualized. Reproductive: Unremarkable as visualized. Bones/joints: Unremarkable. No acute fracture. Soft tissues: Unremarkable. CT/CT abdomen pelvis con [id number] IMPRESSION: 1. Negative for acute inflammatory process in the abdomen or pelvis. 2. Lingular and left lower lobe atelectasis. 3. Cholecystectomy. 4. Constipation.
[2022-02-12 17:47] VITALS: RESP 19
[2022-02-12] MEDS: morphine 4 mg/mL SDV 1 mL IVP (17:47)
[2022-02-12] MEDS: promethazine 25 mg/mL SDV 1 mL IM (17:48)
[2022-02-12] MEDS: ketorolac 30 mg/mL INJ IVP (17:48)
[2022-02-12] MEDS: sodium chloride 0.9% 1,000 ML 999 ML IV (17:52)
[2022-02-12 17:54] VITALS: BP 127/77; PULSE 78; RESP 19; TEMP 36.6; O2SAT 97
[2022-02-12 19:10] VITALS: BP 127/77; PULSE 78; RESP 19; TEMP 36.6; O2SAT 97
== END 2022-02-12 19:05 | disposition home or self-care (01) ==
PROVIDERS: Emergency Medicine; Family Medicine; Emergency Provider Emergency Medicine; PCP Family Medicine
DX: R10.84 Generalized abdominal pain (principal); Z79.4 Long term (current) use of insulin; Z79.82 Long term (current) use of aspirin; F17.210 Nicotine dependence, cigarettes, uncomplicated; E10.9 Type 1 diabetes mellitus without complications; I10 Essential (primary) hypertension; E78.5 Hyperlipidemia, unspecified
CPT/HCPCS: 36415; 36416; 74176; 80053; 82962; 83690; 85025; 96361; 96372; 96374; 96375; 99285; J1885; J2270; J2550; J7030

== ENCOUNTER → 2022-03-01 14:20 | Outpatient (BNVA) | payer MEDICAID, SELFPAY | PROVIDERS: PCP Family Medicine; Visit Provider Obstetrics & Gynecology | DX: Z01.419 Encounter for gynecological examination (general) (routine) without abnormal findings (principal) | CPT/HCPCS: 87624 ==

== ENCOUNTER 2022-03-03 20:19 | Emergency (ER) | payer MEDICAID, SELFPAY ==
[2022-03-03 20:21] VITALS: BP 141/64; PULSE 97; RESP 18; TEMP 36.7; O2SAT 98; BMI 38.4
--- NOTE | 2022-03-03 22:00 | W.ED.ABDPA2 ---
HPI - Abdominal Pain General: Chief Complaint: Abdominal Pain Stated Complaint: extreme lower abd pain Time Seen by Provider: 03/03/22 21:59 Source: patient History of Present Illness: 46-year-old female with a history of pelvic pain. She has been seen twice before in the ER for this condition. She has had pain for 6 weeks or so now. She has been evaluated by CT scan twice and ultrasound once. She has been evaluated by gynecology as well. She is scheduled for surgery in April as an outpatient for hysterectomy. She notes pain is chronic but worsened significantly around 6 PM tonight, and has not let up. She vomited once. No diarrhea. No vaginal bleeding. MD elicited complaint: abdominal pain Pertinent past history: other Onset (ago): hour(s) Pain Consistency: constant Location: Suprapubic and Pelvis Severity: severe Quality: stabbing and aching Radiation: none Exacerbating factors: vomiting and movement Relieving factors: nothing Associated Symptoms: Reports nausea and vomiting; Denies bloating, change in bowel habits, change in stool character, chills, diarrhea, dysuria, fever(s), hematochezia and loose stools Review of Systems Const: Denies: fever(s) or chills Eyes: Denies: change in vision Card: Denies: chest pain or palpitations Resp: Denies: dyspnea GI: Reports: nausea and vomiting; Denies: diarrhea, bloating, change in bowel habits, change in stool character or hematochezia : Denies: dysuria PFSH ED PFSH: Medical History Anxiety Bulging lumbar disc Chronic constipation DDD (degenerative disc disease) Diabetes mellitus type 1- pump Essential (primary) hypertension GERD (gastroesophageal reflux disease) High risk medication use Hyperlipidemia Immunization counseling Immunization counseling Insomnia Leukocytosis Neuropathy Nicotine addiction Onychodystrophy PAD (peripheral artery disease) Removal of other organ (partial) (total) as the cause of abnormal reaction of the patient, or of later complication, without mention of misadventure at the time of the procedure partial removal of spleen and pancreace 2006 performed in [place] S/P angiogram of extremity Seronegative rheumatoid arthritis Seronegative rheumatoid arthritis of both hands Sleep disorder Spinal stenosis Thoracic disc disease Visual snow syndrome Surgical History History of dental surgery History of esophagogastroduodenoscopy (EGD) S/P section S/P cholecystectomy S/P tubal ligation 1996 Family History Mother Diabetes Hypertension Grandfather Diabetes Maternal Grandmother Diabetes Maternal Father Heart disease Hypertension Family/Other Breast cancer Maternal Aunt and Paternal Aunts Sister Uterine cancer Other Hypercholesterolemia Physical Exam Const: COMMON NORMALS: no acute distress GENERAL APPEARANCE: cooperative, in distress (From pain) and anxious HENMT: COMMON NORMALS: normocephalic, atraumatic and Normal external nose present HEAD & SCALP: normocephalic and atraumatic FACE & SINUS: normal facial exam and face symmetric NOSE: Normal external nose present Eye: COMMON NORMALS: Equal, round and reactive pupils present and EOMs intact bilaterally PUPIL: Yes Equal, round and reactive pupils present Neck/C-Spine: GENERAL: Yes trachea midline Chest: CHEST: Yes Symmetrical chest wall rise Resp: COMMON NORMALS: normal respiratory effort, No retractions, No use of accessory muscles and clear to auscultation bilaterally AUSCULTATION: clear to auscultation bilaterally Cardio: COMMON NORMALS: regular rate and regular rhythm RATE: regular rate RHYTHM: regular rhythm GI: COMMON NORMALS: Normal to inspection, nondistended, normoactive bowel sounds present OTHER: Pressure on the pelvis relieves pain, but when letting up, patient experiences increased pain. Extremity: COMMON NORMALS: no pedal edema Neuro: KANE COMA SCALE: document GCS findings Kane coma scale eye opening: Spontaneous Kane coma scale verbal response: Orientated Kane coma scale motor response: Obey commands Kane coma scale total score: 15 SENSORY EXAM: Yes extremities (intact) Psych: COMMON NORMALS: speech normal SPEECH: Yes normal speech Skin: COMMON NORMALS: no rashes or lesions noted GENERAL SKIN EXAM: no rashes or lesions noted Course Vital Signs: Vital signs: Vital Signs Temperature 98.1 F 03/03/22 20:21 Pulse Rate 75 03/04/22 00:00 Respiratory Rate 18 03/04/22 00:00 Blood Pressure 133/78 03/04/22 00:00 Pulse Oximetry 95 03/04/22 00:00 Oxygen Delivery Me thod 03/03/22 23:26 MDM - Abdominal Pain Medical Decision Making 46-year-old female with now subacute to chronic pelvic pain waxing and waning in severity. White blood cell count is 15 but without left shift. CRP is mildly elevated. Creatinine is 1.3. Ultrasound previous revealed uterine abnormality. Abnormality in the uterus tonight on ultrasound shows a 2.2 cm inhomogenous mass in the posterior uterine fundus. Likely a cavitary or submucosal fibroid. Unknown if this is a true cause of her pain. She has had 2 [address]s, 1 showing a slightly enlarged appendix, 1 following showing a normal appendix. Her pain is improved significantly. She will be given an injection of Toradol, and asked to follow-up with her surgeon. We will have case management make her an appointment this coming week if possible. Lab Data 03/03/22 22:00 03/03/22 22:00 Labs/Radiology: Radiology Impressions Pelvic/Transvag US 03/03/22 22:30 IMPRESSION: 1. 2.2 cm inhomogenous mass in the posterior uterine fundus. This could represent a cavitary or submucosal fibroid. An endometrial polyp or neoplasm is not entirely excluded. 2. Normal ovaries. Laboratory Results WBC 15.0 10^3/uL (4.0-10.0) H 03/03/22 22:00 RBC 5.10 10^6/uL (4.1-5.3) 03/03/22 22:00 Hgb 15.1 g/dL (11.5-15.3) 03/03/22 22:00 Hct 45.3 % (37.0-47.0) 03/03/22 22:00 MCV 88.8 fl (81-99) 03/03/22 22:00 MCH 29.6 pg (28.0-34.0) 03/03/22 22:00 MCHC 33.3 g/dL (30.0-36.0) 03/03/22 22:00 RDW 13.5 % (12.1-15.1) 03/03/22 22:00 Plt Count 238 10^3/cmm (130-400) 03/03/22 22:00 MPV 12.4 fL (7.4-10.4) H 03/03/22 22:00 Neut % (Auto) 59.7 % 03/03/22 22:00 Lymph % (Auto) 30.8 % 03/03/22 22:00 [place] % (Auto) 6.3 % 03/03/22 22:00 Eos % (Auto) 1.7 % 03/03/22 22:00 Baso % (Auto) 1.2 % 03/03/22 22:00 Neut # (Auto) 8.96 10^3/uL (1.8-7.7) H 03/03/22 22:00 Lymph # (Auto) 4.6 10^3/uL (0.8-4.8) 03/03/22 22:00 [place] # (Auto) 0.9 10^3/uL (0.2-0.9) 03/03/22 22:00 Eos # (Auto) 0.3 10^3/uL (0.0-0.8) 03/03/22 22:00 Baso # (Auto) 0.2 10^3/uL (0.0-0.1) H 03/03/22 22:00 Nucleated RBC % (auto) 0 % 03/03/22 22:00 Nucleated RBCs # 0.0 /100WBC 03/03/22 22:00 Sodium 130 mmol/L (136-145) L 03/03/22 22:00 Potassium 3.8 mmol/L (3.5-5.1) 03/03/22 22:00 Chloride 96 mmol/L (98-107) L 03/03/22 22:00 Carbon Dioxide 20 mmol/L (22-29) L 03/03/22 22:00 Anion Gap 17.8 (5-19) 03/03/22 22:00 BUN 15 mg/dL (6-20) 03/03/22 22:00 Creatinine 1.3 mg/dL (0.5-0.9) H 03/03/22 22:00 GFR Calculation 44.1 mL/min (90-130) L 03/03/22 22:00 Glucose 135 mg/dL (65-115) H 03/03/22 22:00 Calculated Osmolality 273 mOsm/kg (285-295) L 03/03/22 22:00 Lactate 2.8 mmol/L (0.5-2.2) H 03/03/22 22:00 Calcium 9.5 mg/dL (8.5-10.5) 03/03/22 22:00 Total Bilirubin 0.3 mg/dL (0.15-1.2) 03/03/22 22:00 AST 15 U/L (0-32) 03/03/22 22:00 ALT 12 U/L (0-33) 03/03/22 22:00 Alkaline Phosphatase 71 U/L (35-105) 03/03/22 22:00 C-Reactive Protein 13.9 mg/L (0.0-4.9) H 03/03/22 22:00 Total Protein 7.7 g/dL (6.6-8.7) 03/03/22 22:00 Albumin 4.3 g/dL (3.5-5.2) 03/03/22 22:00 Globulin 3.4 g/dL (1.3-4.6) 03/03/22 22:00 Urine Color Yellow (Yellow) 03/03/22 23:10 Urine Appearance Clear (CLEAR) 03/03/22 23:10 Urine pH 5 (5-7) 03/03/22 23:10 Ur Specific [place] 1.015 (1.005-1.030) 03/03/22 23:10 Urine Protein Neg (Negative) 03/03/22 23:10 Urine Glucose (UA) Norm (Normal) 03/03/22 23:10 Urine Ketones Negative (Negative) 03/03/22 23:10 Urine Blood Neg (Negative) 03/03/22 23:10 Urine Nitrate Negative (Negative) 03/03/22 23:10 Urine Bilirubin Neg (Negative) 03/03/22 23:10 Urine Urobilinogen Neg mg/dL (Negative) 03/03/22 23:10 Ur Leukocyte Esterase Negative (Negative) 03/03/22 23:10 Discharge Plan Discharge Patient Disposition: Home Clinical Impression: Uterine mass Condition: Stable Prescriptions: No Action Novolog PenFill U-100 Insulin 100 unit/mL cartridge See Rx Instructions .ROUTE .COMPLEX Label Comments: via pump Rx Instructions: via pump naproxen sodium 550 mg tablet 550 mg PO Q12H PRN (Reason: pain) Qty: 60 2RF ketorolac 10 mg tablet 10 mg PO TID 5 Days Qty: 15 0RF tizanidine 4 mg Tablet 4 mg PO Q8H PRN (Reason: Muscle Pain) estradiol 1 mg Tablet 1 mg PO DAILY Rx Instructions: ON FOR 16 DAYS, OFF FOR 12 DAYS levothyroxine 50 mcg tablet 50 mcg PO DAILY pantoprazole 40 mg Tablet,Delayed Release (Dr/Ec) 40 mg PO BID lisinopril 10 mg Tablet 10 mg PO DAILY progesterone micronized 200 mg Capsule 200 mg PO DAILY Rx Instructions: ON FOR 12 DAYS, OFF FOR 16 DAYS lactulose 10 gram/15 mL Solution 10 g PO DAILY PRN (Reason: Constipation) celecoxib 200 mg capsule 200 mg PO BID trazodone 50 mg tablet 100 mg PO BEDTIME cetirizine 10 mg tablet 10 mg PO DAILY aspirin 81 mg tablet,delayed release (DR/EC) 81 mg PO DAILY furosemide 20 mg tablet 20 mg PO DAILY albuterol sulfate 90 mcg/actuation HFA aerosol inhaler 1 inh inhalation QID PRN (Reason: Shortness Of Breath) fluticasone propionate 50 mcg/actuation spray,suspension 50 mcg intranasal DAILY PRN (Reason: Nasal Congestion) dexlansoprazole [Dexilant] 60 mg capsule,biphase delayed releas 60 mg PO DAILY Motegrity 2 mg tablet 2 mg PO DAILY atorvastatin 40 mg tablet 40 mg PO BEDTIME oxycodone 10 mg tablet 10 mg PO TID PRN (Reason: Pain) Discharge Orders: Discharge ED (Routine); Ordered 03/04/22 Ordered By: Ovi [place] Referrals: Navid Alegria MD [Primary Care Provider] - 4-7 days Angela Ramos MD [Physician] - 1-3 days Patient Instructions: Opioid Safety, Pain Management Activity Restrictions/Additional Instructions: Case management has been asked to help make a follow-up appointment for you with gynecology this week. They can review ultrasound images, to see if any changes to your treatment need to be made. Return for fever greater than 100, vomiting liquids or medications, worsening pain despite treatment at home, any other concerning symptoms. Coding Level of Care Code ED Drying Unit Felting Machine Operator for Chg Fwd Exam Comprehensive
--- NOTE | 2022-03-03 22:30 | USR_ITS ---
PROCEDURE INFORMATION: Exam: US Pelvis Limited, Transabdominal and US Pelvis, Transvaginal Exam date and time: 03/03/2022 10:57 PM Age: 46 years old Clinical indication: Pelvic pain; Prior surgery; Surgery date: 6+ months; Surgery type: 3 c-sections; Additional info: Pelvic pain, HX of uterine fluid collection TECHNIQUE: Imaging protocol: Real-time transabdominal and transvaginal pelvic ultrasound (limited) with image documentation. Transvaginal imaging was used for better evaluation of the endometrium, adnexa, and/or cervix. COMPARISON: US pelvic complete* [id number] 02/08/2022 4:10 PM FINDINGS: Uterus: 8.3 x 5.4 x 5.0 cm. The endometrial thickness is 2.7 mm in the lower uterine segment. 1.9 x 1.6 x 2.2 cm inhomogenous mass in the posterior uterine fundus. It is uncertain whether this is located within the endometrial cavity or just posterior to it. Cervix: The cervix is unremarkable. Right ovary/adnexa: 1.7 x 1.3 x 1.7 cm with normal blood flow. Left ovary/adnexa: 1.8 x 1.3 x 1.6 cm with normal blood flow. Intraperitoneal space: No free peritoneal fluid. US/US pelvis lmt w transvag IMPRESSION: 1. 2.2 cm inhomogenous mass in the posterior uterine fundus. This could represent a cavitary or submucosal fibroid. An endometrial polyp or neoplasm is not entirely excluded. 2. Normal ovaries.
[2022-03-03 22:42] LABS: Basophils # 0.2 10^3/uL (0.0-0.1); Basophils % 1.2 %; Eosinophils # 0.3 10^3/uL (0.0-0.8); Eosinophils % 1.7 %; Hematocrit 45.3 % (37.0-47.0); Hemoglobin 15.1 g/dL (11.5-15.3); Lymphocytes # 4.6 10^3/uL (0.8-4.8); Lymphocytes % 30.8 %; Mean Corpuscular HGB Conc 33.3 g/dL (30.0-36.0); Mean Corpuscular Hemoglobin 29.6 pg (28.0-34.0); Mean Corpuscular Volume 88.8 fl (81-99); Mean Platelet Volume 12.4 fL (7.4-10.4); Monocytes # 0.9 10^3/uL (0.2-0.9); Monocytes % 6.3 %; Neutrophils # 8.96 10^3/uL (1.8-7.7); Neutrophils % 59.7 %; Nucleated Red Blood Cells % 0 %; Platelet Count 238 10^3/cmm (130-400); Red Cell Distribution Width 13.5 % (12.1-15.1)
[2022-03-03 22:52] LABS: Lactate (Lactic Acid level) 2.8 mmol/L (0.5-2.2)
[2022-03-03 22:53] LABS: Alanine Aminotransferase 12 U/L (0-33); Albumin Level 4.3 g/dL (3.5-5.2); Alkaline Phosphatase 71 U/L (35-105); Anion Gap 17.8 (5-19); Aspartate Amino Transferase 15 U/L (0-32); Blood Urea Nitrogen 15 mg/dL (6-20); C Reactive Protein 13.9 mg/L (0.0-4.9); Calcium 9.5 mg/dL (8.5-10.5); Carbon Dioxide 20 mmol/L (22-29); Chloride 96 mmol/L (98-107); Globulin 3.4 g/dL (1.3-4.6); Glomerular Filtration Rate 44.1 mL/min (90-130); Glucose 135 mg/dL (65-115); Osmolality Calculated 273 mOsm/kg (285-295); Potassium 3.8 mmol/L (3.5-5.1); Sodium 130 mmol/L (136-145); Total Bilirubin 0.3 mg/dL (0.15-1.2); Total Protein 7.7 g/dL (6.6-8.7)
[2022-03-03 23:03] VITALS: RESP 18
[2022-03-03] MEDS: ondansetron 2 mg/ML SDV 2 mL 4 MG IVP (23:03)
[2022-03-03] MEDS: sodium chloride 0.9% 1,000 ML 999 ML IV (23:03)
[2022-03-03] MEDS: HYDROmorphone 1 mg/mL INJ 1 mL IVP (23:03)
[2022-03-03 23:18] LABS: Add Urine Microscopic? NO; Charge for UA Resulting for Rev
[2022-03-03 23:26] VITALS: BP 120/58; PULSE 79; RESP 19; O2SAT 97
[2022-03-03 23:34] LABS: Bilirubin Urine Neg (Negative); Blood Urine Neg (Negative); Glucose Urine UA Norm (Normal); Ketones Urine Negative (Negative); Leukocyte Esterase Urine Negative (Negative); Nitrate Urine Negative (Negative); Protein Urine Neg (Negative); Specific Gravity, Urine 1.015 (1.005-1.030); Urine Appearance Clear (CLEAR); Urine Color Yellow (Yellow); Urobilinogen Urine Neg (Negative); pH Urine 5 (5-7)
[2022-03-04] VITALS: BP 133/78; PULSE 75; RESP 18; O2SAT 95
[2022-03-04] MEDS: ketorolac 30 mg/mL INJ 15 MG IVP (00:37)
[2022-03-04 00:51] VITALS: BP 103/66; PULSE 66; RESP 16; O2SAT 95
--- NOTE | 2022-03-05 13:39 | DCPLANNER ---
Addendum entered by Magy Goddard 03/08/22 15:07: manager leasing received the following message from the [facility] regarding follow up appointment: Pt has already been seen by Dr. Ramos and is scheduled for surgery on 03/28/22. Thank you :) Eneida Original Note: manager leasing had message to schedule a follow up appointment for patient with [facility]. manager leasing sent patients information to the front office staff at [facility]. Patients information will be printed and reviewed. Clinic will call patient with appointment information.
== END 2022-03-04 00:49 | disposition home or self-care (01) ==
PROVIDERS: Emergency Provider Emergency Medicine; PCP Family Medicine
DX: N85.9 Noninflammatory disorder of uterus, unspecified (principal); Z79.82 Long term (current) use of aspirin; Z79.4 Long term (current) use of insulin; E10.9 Type 1 diabetes mellitus without complications; Z96.41 Presence of insulin pump (external) (internal); I10 Essential (primary) hypertension; E78.5 Hyperlipidemia, unspecified
CPT/HCPCS: 76830; 76857; 80053; 81003; 83605; 85025; 86140; 96361; 96374; 96375; 99285; J1170; J1885; J2405; J7030

== ENCOUNTER 2022-03-04 16:00 | Emergency (ER) | payer MEDICAID, SELFPAY ==
[2022-03-04] VITALS (7 sets, daily range): BP systolic 118–147; BP diastolic 72–83; PULSE 72–82; RESP 15–19; TEMP 36.9; O2SAT 95–96
--- NOTE | 2022-03-04 16:04 | W.ED.ABDPA2 ---
HPI - Abdominal Pain General: Chief Complaint: Abdominal Pain Stated Complaint: ABD PAIN; HX OVARIAN CYST Time Seen by Provider: 03/04/22 16:04 History of Present Illness: Ms Caraballo is a 46-year-old female with known history of uterine abnormality presenting due to continued and worsening abdominal pain as well as new onset vaginal bleeding. Patient is postmenopausal with last normal period approximately 3 years ago. She reports onset of bleeding associated with worsening abdominal pain earlier this afternoon. She reports this is heavier than a normal period however is otherwise unable to quantify amount as she does not have pads that she has been using. Intensity symptoms is moderate to severe. Course has persisted. Denies vaginal bleeding associated with prior ED presentations for evaluation of abdominal pain. No other specific changes in health, exacerbating, or alleviating factors identified. Onset (ago): hour(s) Pain Consistency: constant Location: Pelvis Severity: severe Quality: cramping and aching Associated Symptoms: Reports other Review of Systems General: Reports: 10 or more systems reviewed and unremarkable except in HPI and below GI: Reports: other [facility] ED PFSH: Medical History (Updated 03/12/22 @ 00:01 by ) Anxiety Bulging lumbar disc Chronic constipation DDD (degenerative disc disease) Diabetes mellitus type 1- pump Essential (primary) hypertension GERD (gastroesophageal reflux disease) High risk medication use Hyperlipidemia Immunization counseling Immunization counseling Insomnia Leukocytosis Neuropathy Nicotine addiction Onychodystrophy PAD (peripheral artery disease) Removal of other organ (partial) (total) as the cause of abnormal reaction of the patient, or of later complication, without mention of misadventure at the time of the procedure partial removal of spleen and pancreace 2005 performed in [place] S/P angiogram of extremity Seronegative rheumatoid arthritis Seronegative rheumatoid arthritis of both hands Sleep disorder Spinal stenosis Thoracic disc disease Visual snow syndrome Surgical History (Updated 03/04/22 @ 20:54 by Anglea Ramos MD) H/O gastric sleeve 12/20/20 in [facility] History of dental surgery History of esophagogastroduodenoscopy (EGD) S/P section S/P cholecystectomy S/P tubal ligation 1996 Family History Mother Diabetes Hypertension Grandfather Diabetes Maternal Grandmother Diabetes Maternal Father Heart disease Hypertension Family/Other Breast cancer Maternal Aunt and Paternal Aunts Sister Uterine cancer Other Hypercholesterolemia Physical Exam Const: COMMON NORMALS: alert GENERAL APPEARANCE: cooperative, well developed and in distress (Secondary to pain) HENMT: COMMON NORMALS: normocephalic and atraumatic HEAD & SCALP: normocephalic and atraumatic Eye: COMMON NORMALS: conjunctivae normal CONJUNCTIVA: Yes conjunctivae normal SCLERA: sclerae normal Neck/C-Spine: COMMON NORMALS: supple GENERAL: Yes trachea midline Resp: COMMON NORMALS: normal respiratory effort EFFORT & INSPECTION: Yes able to speak in complete sentences Cardio: COMMON NORMALS: regular rate and regular rhythm RATE: regular rate RHYTHM: regular rhythm GI: COMMON NORMALS: Soft to palpation PALPATION: Yes Soft to palpation, Yes Tenderness to palpation present (GI), No Guarding due to palpation present (GI) and No Rigid due to palpation : OTHER: Pelvic exam performed with normal external genitalia. There is pooling of dark red blood in the vaginal vault with speculum insertion. Cervical os with small amount of blood trickling. No other abnormality identified. Extremity: GENERAL: Yes normal exam except as noted and No edema Neuro: COMMON NORMALS: moves all extremities SENSORIUM/ORIENTATION: Yes alert and No Orientation impaired Psych: COMMON NORMALS: mental status grossly normal and Normal thought process present THOUGHT PROCESS: Normal thought process present Course Vital Signs: Vital signs: Vital Signs Temperature 98.4 F 03/04/22 16:15 Pulse Rate 74 03/04/22 21:14 Respiratory Rate 18 03/04/22 21:14 Blood Pressure 118/83 03/04/22 21:14 Pulse Oximetry 95 03/04/22 21:14 Oxygen Delivery Me thod 03/04/22 18:01 MDM - Abdominal Pain Medical Decision Making 46-year-old lady returning to the emergency department for abdominal pain in the context of previously diagnosed uterine abnormality that is still in process of evaluation. New symptom is vaginal bleeding. Exam as above, no evidence of acute surgical abdomen or evidence of hypovolemia/rapid blood loss. Leukocytosis improved compared to prior, hemoglobin and platelet count similar. No significant metabolic abnormalities. Prior urinalysis reviewed. Prior imaging reviewed. No acute abnormality identified on CT imaging or Ultrasound to explain new bleeding. Incidental findings were discussed. Discussed with BANDER AND CELLOPHANER MACHINE on-call who came and consulted on the patient. Patient remained satisfactory for continued outpatient management. Most likely cause of patient's symptoms is abnormal uterine imaging finding of unclear etiology The results of ED evaluation were discussed with the patient including prescriptions and/or symptomatic cares (if applicable) including appropriate and responsible use, followup plan, and return precautions. The patient verbalized understanding and felt safe for discharge. Medical Records I reviewed the patient's medical records. Lab Data I reviewed the patient's lab results. 03/04/22 16:30 03/04/22 16:30 Labs/Radiology: Radiology Impressions Pelvic/Transvag US 03/04/22 17:19 IMPRESSION: 1. No acute findings. 2. Suboptimally visualized hypoechoic regions within the fundal endometrium morphologically similar to the findings on 02/08/2022 and 03/03/2022. This could be an endometrial or myometrial abnormality. Malignancy is a possibility. Recommend nonemergent follow-up MRI. Abdomen/Pelvis CT 03/04/22 18:51 IMPRESSION: 1. No acute findings. 2. Incidental findings above. COMMENTS: Consistent with the [employer] [place] [employer]'s Incidental Findings Committee white paper (J Am Osiris Radiol 2018): Any incidental renal lesion less than 1 cm or classified as too small to characterize, or any incidental cystic renal lesion characterized as simple-appearing, is likely benign. No follow-up imaging is recommended for these lesions per consensus recommendations based on imaging criteria. Laboratory Results WBC 12.4 10^3/uL (4.0-10.0) H 03/04/22 16:30 RBC 4.97 10^6/uL (4.1-5.3) 03/04/22 16:30 Hgb 14.8 g/dL (11.5-15.3) 03/04/22 16:30 Hct 44.9 % (37.0-47.0) 03/04/22 16:30 MCV 90.3 fl (81-99) 03/04/22 16:30 MCH 29.8 pg (28.0-34.0) 03/04/22 16:30 MCHC 33.0 g/dL (30.0-36.0) 03/04/22 16:30 RDW 13.8 % (12.1-15.1) 03/04/22 16:30 Plt Count 243 10^3/cmm (130-400) 03/04/22 16:30 MPV 13.0 fL (7.4-10.4) H 03/04/22 16:30 Neut % (Auto) 47.4 % 03/04/22 16:30 Lymph % (Auto) 42.9 % 03/04/22 16:30 [place] % (Auto) 6.7 % 03/04/22 16:30 Eos % (Auto) 1.5 % 03/04/22 16:30 Baso % (Auto) 1.2 % 03/04/22 16:30 Neut # (Auto) 5.86 10^3/uL (1.8-7.7) 03/04/22 16:30 Lymph # (Auto) 5.3 10^3/uL (0.8-4.8) H 03/04/22 16:30 [place] # (Auto) 0.8 10^3/uL (0.2-0.9) 03/04/22 16:30 Eos # (Auto) 0.2 10^3/uL (0.0-0.8) 03/04/22 16:30 Baso # (Auto) 0.2 10^3/uL (0.0-0.1) H 03/04/22 16:30 Nucleated RBC % (auto) 0 % 03/04/22 16:30 Nucleated RBCs # 0.0 /100WBC 03/04/22 16:30 Sodium 137 mmol/L (136-145) 03/04/22 16:30 Potassium 3.7 mmol/L (3.5-5.1) 03/04/22 16:30 Chloride 101 mmol/L (98-107) 03/04/22 16:30 Carbon Dioxide 24 mmol/L (22-29) 03/04/22 16:30 Anion Gap 15.7 (5-19) 03/04/22 16:30 BUN 12 mg/dL (6-20) 03/04/22 16:30 Creatinine 1.1 mg/dL (0.5-0.9) H 03/04/22 16:30 GFR Calculation 53.5 mL/min (90-130) L 03/04/22 16:30 Glucose 67 mg/dL (65-115) 03/04/22 16:30 Calculated Osmolality 282 mOsm/kg (285-295) L 03/04/22 16:30 Calcium 9.0 mg/dL (8.5-10.5) 03/04/22 16:30 Total Bilirubin 0.2 mg/dL (0.15-1.2) 03/04/22 16:30 AST 15 U/L (0-32) 03/04/22 16:30 ALT 11 U/L (0-33) 03/04/22 16:30 Alkaline Phosphatase 71 U/L (35-105) 03/04/22 16:30 Total Protein 7.2 g/dL (6.6-8.7) 03/04/22 16:30 Albumin 4.2 g/dL (3.5-5.2) 03/04/22 16:30 Globulin 3.0 g/dL (1.3-4.6) 03/04/22 16:30 Discharge Plan Discharge Patient Disposition: Home Clinical Impression: Uterine mass, Abdominal pain, Abnormal uterine bleeding Condition: Stable Prescriptions: New meloxicam 7.5 mg tablet 7.5 mg PO DAILY Qty: 30 0RF No Action Novolog PenFill U-100 Insulin 100 unit/mL cartridge See Rx Instructions .ROUTE .COMPLEX Label Comments: via pump Rx Instructions: via pump naproxen sodium 550 mg tablet 550 mg PO Q12H PRN (Reason: pain) Qty: 60 2RF ketorolac 10 mg tablet 10 mg PO TID 5 Days Qty: 15 0RF tizanidine 4 mg Tablet 4 mg PO Q8H PRN (Reason: Muscle Pain) estradiol 1 mg Tablet 1 mg PO DAILY Rx Instructions: ON FOR 16 DAYS, OFF FOR 12 DAYS levothyroxine 50 mcg tablet 50 mcg PO DAILY pantoprazole 40 mg Tablet,Delayed Release (Dr/Ec) 40 mg PO BID lisinopril 10 mg Tablet 10 mg PO DAILY progesterone micronized 200 mg Capsule 200 mg PO DAILY Rx Instructions: ON FOR 12 DAYS, OFF FOR 16 DAYS lactulose 10 gram/15 mL Solution 10 g PO DAILY PRN (Reason: Constipation) celecoxib 200 mg capsule 200 mg PO BID trazodone 50 mg tablet 100 mg PO BEDTIME cetirizine 10 mg tablet 10 mg PO DAILY aspirin 81 mg tablet,delayed release (DR/EC) 81 mg PO DAILY furosemide 20 mg tablet 20 mg PO DAILY albuterol sulfate 90 mcg/actuation HFA aerosol inhaler 1 inh inhalation QID PRN (Reason: Shortness Of Breath) fluticasone propionate 50 mcg/actuation spray,suspension 50 mcg intranasal DAILY PRN (Reason: Nasal Congestion) dexlansoprazole [Dexilant] 60 mg capsule,biphase delayed releas 60 mg PO DAILY Motegrity 2 mg tablet 2 mg PO DAILY atorvastatin 40 mg tablet 40 mg PO BEDTIME oxycodone 10 mg tablet 10 mg PO TID PRN (Reason: Pain) Discharge Orders: Discharge ED (Routine); Ordered 03/04/22 Ordered By: Gordo Flores Referrals: Navid Alegria MD [Primary Care Provider] - Discharge Diet: Usual diet Discharge Activity: Increase activity as tolerated Patient Instructions: Abnormal (Dysfunctional) Uterine Bleeding (ED), Abdominal Pain (ED), Opioid Safety, Pain Management Activity Restrictions/Additional Instructions: Thank you for visiting the emergency department. You were seen ineffective for abdominal pain with new vaginal bleeding in the postmenopausal state. Exact cause of your symptoms is unclear though certainly requires further close outpatient evaluation. You should be contacted by either Dr. Ordoñez or Dr. Ramos in the morning. I will prescribe meloxicam, do not take this at the same time as other NSAIDs such as ketorolac, naproxen, or celecoxib as the combination can increase risk of adverse effects on the kidney and bleeding including stomach ulcers. Return to the emergency department for uncontrolled symptoms or anything else that you are concerned about a feel needs emergency department evaluation. Coding Level of Care Code ED Controller Repairer And Tester for Buddy Barlow Exam Comprehensive
[2022-03-04] MEDS: morphine 4 mg/mL SDV 1 mL IVP (16:57)
[2022-03-04] MEDS: sodium chloride 0.9% 1,000 ML 999 ML IV (16:58)
[2022-03-04 17:02] LABS: Basophils # 0.2 10^3/uL (0.0-0.1); Basophils % 1.2 %; Eosinophils # 0.2 10^3/uL (0.0-0.8); Eosinophils % 1.5 %; Hematocrit 44.9 % (37.0-47.0); Hemoglobin 14.8 g/dL (11.5-15.3); Lymphocytes # 5.3 10^3/uL (0.8-4.8); Lymphocytes % 42.9 %; Mean Corpuscular Hemoglobin 29.8 pg (28.0-34.0); Mean Corpuscular Volume 90.3 fl (81-99); Monocytes # 0.8 10^3/uL (0.2-0.9); Monocytes % 6.7 %; Neutrophils # 5.86 10^3/uL (1.8-7.7); Neutrophils % 47.4 %; Nucleated Red Blood Cells % 0 %; Platelet Count 243 10^3/cmm (130-400); Red Blood Count 4.97 10^6/uL (4.1-5.3); Red Cell Distribution Width 13.8 % (12.1-15.1); White Blood Count 12.4 10^3/uL (4.0-10.0)
--- NOTE | 2022-03-04 17:19 | USR_ITS ---
PROCEDURE INFORMATION: Exam: US Pelvis Complete, Transabdominal and US Pelvis, Transvaginal Exam date and time: 03/04/2022 5:39 PM Age: 46 years old Clinical indication: Pelvic pain and other: Bleeding; Prior surgery; Surgery date: 6+ months; Surgery type: ; Additional info: Vag bleeding, post menopausal TECHNIQUE: Imaging protocol: Real-time complete transabdominal and transvaginal pelvic ultrasound with image documentation. Transvaginal imaging was used for better evaluation of the endometrium, adnexa, and/or cervix. COMPARISON: 1. CT abdomen pelvis wo con [id number] 02/12/2022 6:05 PM 2. US pelvic complete* [id number] 02/08/2022 4:10 PM 3. US pelvis lmt w transvag 03/03/2022 10:57 PM FINDINGS: Uterus: The uterus is anteverted. Contours are normal. The uterus measures 7.7 x 5.4 x 4.2 cm. The endometrium is incompletely visualized. Endometrial stripe thickness measures 5 mm. In the left posterior aspect of the uterus there is a myometrial mass measuring up to 2 cm diameter. Multifocal ill-defined hypoechoic regions in the fundal aspect of the uterus are suboptimally visualized on this exam. See coronal cine images series 1, image 40 frame 380 through 403. Right ovary/adnexa: The right ovary is morphologically normal. There is normal blood flow in the right ovary. The right ovary measures 1.9 x 1.7 x 1.5 cm. Left ovary/adnexa: The left ovary is morphologically normal. There is normal blood flow in the left ovary. The left ovary measures 1.6 x 1.3 x 1.0 cm. Intraperitoneal space: No intraperitoneal fluid. Urinary bladder: Normal. US/US pelvic with transvaginal IMPRESSION: 1. No acute findings. 2. Suboptimally visualized hypoechoic regions within the fundal endometrium morphologically similar to the findings on 02/08/2022 and 03/03/2022. This could be an endometrial or myometrial abnormality. Malignancy is a possibility. Recommend nonemergent follow-up MRI.
[2022-03-04 17:22] LABS: Alanine Aminotransferase 11 U/L (0-33); Albumin Level 4.2 g/dL (3.5-5.2); Alkaline Phosphatase 71 U/L (35-105); Anion Gap 15.7 (5-19); Aspartate Amino Transferase 15 U/L (0-32); Blood Urea Nitrogen 12 mg/dL (6-20); Carbon Dioxide 24 mmol/L (22-29); Chloride 101 mmol/L (98-107); Glomerular Filtration Rate 53.5 mL/min (90-130); Glucose 67 mg/dL (65-115); Osmolality Calculated 282 mOsm/kg (285-295); Potassium 3.7 mmol/L (3.5-5.1); Sodium 137 mmol/L (136-145); Total Bilirubin 0.2 mg/dL (0.15-1.2); Total Protein 7.2 g/dL (6.6-8.7)
[2022-03-04] MEDS: HYDROmorphone 1 mg/mL INJ 1 mL IVP ×2 (17:58→20:51)
--- NOTE | 2022-03-04 18:51 | CTR_ITS ---
PROCEDURE INFORMATION: Exam: CT Abdomen And Pelvis With Contrast Exam date and time: 03/04/2022 7:08 PM Age: 46 years old Clinical indication: Abdominal pain; Localized; Lower; Prior surgery; Surgery type: Gb, tubal, ; Additional info: Lower abd pain TECHNIQUE: Imaging protocol: Computed tomography of the abdomen and pelvis with contrast. Radiation optimization: All CT scans at this facility use at least one of these dose optimization techniques: automated exposure control; mA and/or kV adjustment per patient size (includes targeted exams where dose is matched to clinical indication); or iterative reconstruction. Contrast material: OMNI 350; Contrast volume: 100 ml; Contrast route: INTRAVENOUS (IV); COMPARISON: CT abdomen pelvis wo con [id number] 02/12/2022 6:05 PM RADIATION DOSE METRICS: Total DLP (mGy-cm): 938.23 FINDINGS: Lungs: Lung bases are clear. Liver: The liver is normal. Gallbladder and bile ducts: The gallbladder is absent. There is no intrahepatic or extrahepatic bile duct dilation. Pancreas: There is mild atrophy of the pancreas. Spleen: The spleen is unremarkable. Adrenal glands: The adrenal glands are hypertrophic bilaterally. There is a 14 mm low-density nodule abutting the left adrenal gland suggesting a benign lipid rich adenoma. Kidneys and ureters: There are simple cysts in the right kidney. There is no hydronephrosis or stones. The left kidney and ureter are unremarkable. Stomach and bowel: The stomach is decompressed, preventing meaningful evaluation of wall thickness. The small bowel is nondilated. The colon is unremarkable. Appendix: The appendix is normal. Intraperitoneal space: There is no free air or significant intraperitoneal free fluid. Vasculature: There is mild aortic atherosclerotic disease. The portal, splenic and superior mesenteric veins are patent. Lymph nodes: There is no lymphadenopathy in the retroperitoneum, mesentery, pelvis or inguinal regions. Urinary bladder: The urinary bladder is decompressed, preventing meaningful evaluation of wall thickness. Reproductive: The uterus is unremarkable. There is no adnexal mass or large cyst. Bones/joints: Bones are unremarkable. Soft tissues: The abdominal wall is intact. CT/CT abdomen pelvis w con* [id number] IMPRESSION: 1. No acute findings. 2. Incidental findings above. COMMENTS: Consistent with the [employer]'s Incidental Findings Committee white paper (J Am Osiris Radiol 2018): Any incidental renal lesion less than 1 cm or classified as too small to characterize, or any incidental cystic renal lesion characterized as simple-appearing, is likely benign. No follow-up imaging is recommended for these lesions per consensus recommendations based on imaging criteria.
[2022-03-04] MEDS: iohexol 350 mg/mL 500 mL Btl (per mL) IV (19:10)
--- NOTE | 2022-03-04 21:21 | PM.OBGYCN ---
Providers/Reason for Consult Consulting Physican/Specialty*: Zinc Chloride Operator Reason for Consult*: pelvic pain Requesting Physcian: Dr. Flores Attending Physician: Nino Ordoñez M.D. Primary PAINT STRIPING MACHINE OPERATOR: Dr. Ramos Primary Care Provider: Navid Alegria MD PAINT STRIPING MACHINE OPERATOR Consult HPI History of Present Illness March 04, 2022, 2034 MIRROR INSTALLER CONSULT NOTE 46 y.o. A1 h/o BTL last bleeding / period was 2.5 years ago has been seen in ER 3-4 times for pelvic pain was seen by Dr. Ramos last week for same ? has been scheduled by Dr. Ramos for hysterectomy for April 24, 2022 returns to ER this evening c/o severe pelvic pain and vaginal bleeding states first time she has vaginal bleeding since 2.5 years ago pelvic pain began in January ? described as intermittent, occasionally severe ? states pain has worsened ? was very severe last night ? was seen in ER last night, given pain medication, and was discharged ? pain located in lower abdomen, ?across scar?, mostly in right side ? no fever, chills ? + nausea but no vomiting ? Has been urinating and ambulating well PMHx:?type I diabetes ?Gastroparesis ?Increased cholesterol ?Hypertension PSHx:?c-sections x three ?Cholecystectomy ?Partial splenectomy and pancreatectomy ?Full mouth teeth extraction SHx:?+? smoking All:?sulfa Exam:? weight? 210? lbs ?Afebrile, VS? normal ?Comfortable, in no acute distress ?Abd:? soft, nondistended ?Mild tenderness on palpation right lower quadrant ?No rebound LABS today CBC?WBC?12.4 ? Hgb?14.8 CT of abd/pelvis?normal bowel / appendix ?Normal uterus and adnexae ?Normal kidneys and ureters Pelvic sono?normal uterus and ovaries ?Endometrial thickness? 5 mm A/P: Right lower quadrant pain Clinical exam, pelvic sono, and CT of abdomen / pelvis findings relatively benign ? does not point to any specific pathology Patient already taking oxycodone at home Plan add meloxicam Vaginal bleeding Will contact Dr. Ramos tomorrow a.m. or destinee regarding patient c/o pain and vaginal bleeding In the meantime, patient may be discharged from ER to home Will set short-term followup or destinee to see Dr. Ramos Medications/Allergies Home Medications Medication Instructions Recorded Confirmed Last Taken Type insulin aspart U-100 100 unit/mL See Rx Instructions .Route .COMPLEX 04/10/19 03/01/22 02/12/22 History subcutaneous cartridge (Novolog PenFill U-100 Insulin aspart) albuterol sulfate 90 mcg/actuation 1 inh inhalation QID PRN Shortness 02/08/22 03/01/22 Unknown History aerosol inhaler Of Breath aspirin 81 mg tablet,delayed 81 mg PO DAILY 02/08/22 03/01/22 02/12/22 History release celecoxib 200 mg capsule 200 mg PO BID 02/08/22 03/01/22 02/12/22 History cetirizine 10 mg tablet 10 mg PO DAILY 02/08/22 03/01/22 02/12/22 History dexlansoprazole 60 mg 60 mg PO DAILY 02/08/22 03/01/22 02/12/22 History capsule,biphase delayed release (Dexilant) estradiol 1 mg tablet 1 mg PO DAILY 02/08/22 03/01/22 02/11/22 History fluticasone propionate 50 50 mcg intranasal DAILY PRN Nasal 02/08/22 03/01/22 02/12/22 History mcg/actuation nasal Congestion spray,suspension furosemide 20 mg tablet 20 mg PO DAILY 02/08/22 03/01/22 02/12/22 History lactulose 10 gram/15 mL oral 10 g PO DAILY PRN Constipation 02/08/22 03/01/22 Unknown History solution levothyroxine 50 mcg tablet 50 mcg PO DAILY 02/08/22 03/01/22 02/12/22 History lisinopril 10 mg tablet 10 mg PO DAILY 02/08/22 03/01/22 02/12/22 History pantoprazole 40 mg tablet,delayed 40 mg PO BID 02/08/22 03/01/22 02/12/22 History release progesterone micronized 200 mg 200 mg PO DAILY 11/01/2003/01/22 01/16/22 History capsule prucalopride 2 mg tablet 2 mg PO DAILY 02/08/22 03/01/22 02/12/22 History (Motegrity) tizanidine 4 mg tablet 4 mg PO Q8H PRN Muscle Pain 02/08/22 03/01/22 Unknown History trazodone 50 mg tablet 100 mg PO BEDTIME 02/08/22 03/01/22 02/11/22 History atorvastatin 40 mg tablet 40 mg PO BEDTIME 02/12/22 03/01/22 02/11/22 History oxycodone 10 mg tablet 10 mg PO TID PRN Pain 02/12/22 03/01/22 02/12/22 History naproxen sodium 550 mg tablet 550 mg PO Q12H PRN pain #60 tabs 03/01/22 03/01/22 Unknown Rx ketorolac 10 mg tablet 10 mg PO TID 5 days #15 tabs 03/02/22 Unknown Rx meloxicam 7.5 mg tablet 7.5 mg PO DAILY #30 tabs 03/04/22 Unknown Rx Allergies Allergy/AdvReac Type Severity Reaction Status Date / Time Sulfa (Sulfonamide Allergy ALGY-Rash Verified 03/01/22 13:34 Antibiotics) STERIODS AdvReac Mild CAUSES Uncoded 03/01/22 13:34 HIGH BLOOD SUGARS. can use small doses PFSH PAINT STRIPING MACHINE OPERATOR PFSH: Medical History (Updated 03/04/22 @ 21:28 by Nino Ordoñez MD) Anxiety Bulging lumbar disc Chronic constipation DDD (degenerative disc disease) Diabetes mellitus type 1- pump Essential (primary) hypertension GERD (gastroesophageal reflux disease) High risk medication use Hyperlipidemia Immunization counseling Immunization counseling Insomnia Leukocytosis Neuropathy Nicotine addiction Onychodystrophy PAD (peripheral artery disease) Removal of other organ (partial) (total) as the cause of abnormal reaction of the patient, or of later complication, without mention of misadventure at the time of the procedure partial removal of spleen and pancreace 2005 performed in [place] S/P angiogram of extremity Seronegative rheumatoid arthritis Seronegative rheumatoid arthritis of both hands Sleep disorder Spinal stenosis Thoracic disc disease Visual snow syndrome Surgical History (Updated 03/04/22 @ 20:54 by Angela Ramos MD) H/O gastric sleeve 12/20/20 in [place] History of dental surgery History of esophagogastroduodenoscopy (EGD) S/P section S/P cholecystectomy S/P tubal ligation 1996 Family History Mother Diabetes Hypertension Grandfather Diabetes Maternal Grandmother Diabetes Maternal Father Heart disease Hypertension Family/Other Breast cancer Maternal Aunt and Paternal Aunts Sister Uterine cancer Other Hypercholesterolemia Vitals/I&O/Wt Last Vital Signs Temp 98.4 F 03/04/22 16:15 Pulse 74 03/04/22 21:14 Resp 18 03/04/22 21:14 BP 118/83 03/04/22 21:14 Pulse Ox 95 03/04/22 21:14 O2 Del Method 03/04/22 18:01 Weight last 48 hrs Weight 210 lb Data 03/04/22 16:30 03/04/22 16:30 Micro: Microbiology 03/04/22 17:18 Wet Prep - Final Vaginal A&P Assessment and plan (1) Abdominal pain: (2) Pelvic pain: (3) Vaginal bleeding: Plan see above note Consult Attestations Medical Necessity Statement: pelvic pain and vaginal bleeding Coding Level of Care Code Acute Silver Buffer for Chg Fwd Diagnoses Abdominal pain R10.9 Pelvic pain R10.2 Vaginal bleeding N93.9
== END 2022-03-04 21:15 | disposition home or self-care (01) ==
PROVIDERS: Emergency Provider Emergency Medicine; PCP Family Medicine
DX: N85.8 Other specified noninflammatory disorders of uterus (principal); N93.9 Abnormal uterine and vaginal bleeding, unspecified; R10.9 Unspecified abdominal pain
CPT/HCPCS: 12345; 74177; 76830; 76856; 80053; 85025; 87210; 96361; 96374; 96375; 96376; 99285; J1170; J2270; J7030; Q9967

== ENCOUNTER 2022-03-28 06:39 | Day surgery (SDC) | payer MEDICAID, SELFPAY ==
[2022-03-27 15:01] VITALS: BMI 37.3
[2022-03-28] VITALS (14 sets, daily range): BP systolic 115–164; BP diastolic 56–97; PULSE 91–152; RESP 18–30; TEMP 36.4–36.8; O2SAT 93–100
[2022-03-28] MEDS: sodium chloride 0.9% 1,000 ML 30 ML IV (07:20)
--- NOTE | 2022-03-28 07:20 | P.ANESASSM_ITS ---
Pre-Anesthetic Assessment Height/Weight: Height 1.57 m Weight 92.533 kg Temp Pulse Resp BP Pulse Ox O2 Del Method 97.6 F 91 18 119/82 97 03/28/22 06:43 03/28/22 06:43 03/28/22 06:43 03/28/22 06:43 03/28/22 06:43 03/28/22 06:57 Preop Diagnosis: AUB, uterine fibroids, enlarged uterus Operation Date: 03/28/22 08:00 Proposed Procedures p Hysteroscopy w/ Myosure [id number]/n93.9/r10.2(Not Applicable) - Angela Ramos MD s Dilation And Curettage (D&C)(Not Applicable) - Angela Ramos MD Familial anesthetic complications: None Was Beta Nick taken within 24 hours: N/A Was Clonidine taken within 24 hours: N/A Last intake: Intake Last Liquid Date 03/27/22 Last Liquid Time 22:00 Last Solid Date 03/27/22 Last Solid Time 22:00 Social Tobacco and No alcohol Exam alert, oriented x 3, clear to auscultation bilaterally and regular rate & rhythm Airway Mallampati: Class III Dentition: other (no teeth) Pulmonary Chronic Obstructive Pulmonary Disease CV/HEM Hypertension and Peripheral Vascular Disease GI Gastroesophageal Reflux Disease gastroparesis Metabolic Diabetes Mellitus (type I), Hyperlipidemia, Morbid Obesity and Thyroid Disease [facility] Rheumatoid Arthritis Neuropsych Neuropathy Anesthetic Plan ASA status: 3 Anesthesia: General Risk of > 500 ml blood loss (7ml/kg in children): No Medications/Allergies Home Medications Medication Instructions Recorded Confirmed Last Taken Type insulin aspart U-100 100 unit/mL See Rx Instructions .Route .COMPLEX 04/10/19 03/27/22 02/12/22 History subcutaneous cartridge (Novolog PenFill U-100 Insulin aspart) albuterol sulfate 90 mcg/actuation 1 inh inhalation QID PRN Shortness 02/08/22 03/28/22 03/27/22 History aerosol inhaler Of Breath aspirin 81 mg tablet,delayed 81 mg PO DAILY 02/08/22 03/28/22 03/27/22 History release celecoxib 200 mg capsule 200 mg PO BID 02/08/22 03/28/22 03/27/22 History cetirizine 10 mg tablet 10 mg PO DAILY 02/08/22 03/28/22 03/27/22 History dexlansoprazole 60 mg 60 mg PO DAILY 02/08/22 03/28/22 03/27/22 History capsule,biphase delayed release (Dexilant) estradiol 1 mg tablet 1 mg PO DAILY 02/08/22 03/28/22 03/27/22 History fluticasone propionate 50 50 mcg intranasal DAILY PRN Nasal 02/08/22 03/27/22 02/12/22 History mcg/actuation nasal Congestion spray,suspension furosemide 20 mg tablet 20 mg PO DAILY 02/08/22 03/27/22 02/12/22 History lactulose 10 gram/15 mL oral 10 g PO DAILY PRN Constipation 02/08/22 03/27/22 Unknown History solution levothyroxine 50 mcg tablet 50 mcg PO DAILY 02/08/22 03/27/22 02/12/22 History lisinopril 10 mg tablet 10 mg PO DAILY 02/08/22 03/27/22 02/12/22 History pantoprazole 40 mg tablet,delayed 40 mg PO BID 02/08/22 03/27/22 02/12/22 Histor y release progesterone micronized 200 mg 200 mg PO DAILY 02/08/22 03/27/22 01/16/22 History capsule prucalopride 2 mg tablet 2 mg PO DAILY 02/08/22 03/27/22 02/12/22 History (Motegrity) tizanidine 4 mg tablet 4 mg PO Q8H PRN Muscle Pain 02/08/22 03/27/22 Unknown History trazodone 50 mg tablet 100 mg PO BEDTIME 02/08/22 03/27/22 02/11/22 History atorvastatin 40 mg tablet 40 mg PO BEDTIME 02/12/22 03/28/22 03/27/22 History oxycodone 10 mg tablet 10 mg PO TID PRN Pain 02/12/22 03/27/22 02/12/22 History naproxen sodium 550 mg tablet 550 mg PO Q12H PRN pain #60 tabs 03/01/22 03/27/22 Unknown Rx meloxicam 7.5 mg tablet 7.5 mg PO DAILY #30 tabs 03/04/22 03/27/22 Unknown Rx erythromycin ethylsuccinate 200 3.1 mg PO BID 03/27/22 03/28/22 03/27/22 History mg/5 mL oral powder for suspension (E.E.S. Granules) Allergies Allergy/AdvReac Type Severity Reaction Status Date / Time Sulfa (Sulfonamide Allergy ALGY-Rash Verified 03/28/22 06:52 Antibiotics) STERIODS AdvReac Mild CAUSES Uncoded 03/27/22 14:55 HIGH BLOOD SUGARS. can use small doses [facility] Anesthesia Medical History (Updated 03/23/22 @ 14:00 by Angela Ramos MD) Anxiety Bulging lumbar disc Chronic constipation DDD (degenerative disc disease) Diabetes mellitus type 1- pump Essential (primary) hypertension GERD (gastroesophageal reflux disease) High risk medication use Hyperlipidemia Immunization counseling Immunization counseling Insomnia Leukocytosis Neuropathy Nicotine addiction Onychodystrophy PAD (peripheral artery disease) Removal of other organ (partial) (total) as the cause of abnormal reaction of the patient, or of later complication, without mention of misadventure at the time of the procedure partial removal of spleen and pancreace 2005 performed in [place] S/P angiogram of extremity Seronegative rheumatoid arthritis Seronegative rheumatoid arthritis of both hands Sleep disorder Spinal stenosis Thoracic disc disease Visual snow syndrome Surgical History (Updated 03/04/22 @ 20:54 by Angela Ramos MD) H/O gastric sleeve 12/20/20 in [facility] History of dental surgery History of esophagogastroduodenoscopy (EGD) S/P section S/P cholecystectomy S/P tubal ligation 1996 Family History Mother Diabetes Hypertension Grandfather Diabetes Maternal Grandmother Diabetes Maternal Father Heart disease Hypertension Family/Other Breast cancer Maternal Aunt and Paternal Aunts Sister Uterine cancer Other Hypercholesterolemia Data Anesthesia Cardiac Studies: No Data to Display
[2022-03-28 07:29] LABS: Glucose Point of Care 237 mg/dL (70-110)
--- NOTE | 2022-03-28 08:09 | W.PM.OPSUD ---
Surgery/Procedure H&P Update DATE OF PROCEDURE: March 28, 2022 DATE H&P PERFORMED: 03/23/22 H&P UPDATE INFORMATION: I have reviewed H&P completed within last 30 days, I have examined patient prior to procedure and No changes to prior documentation PREOP DIAGNOSIS: AUB, uterine fibroids, enlarged uterus PLANNED PROCEDURE: Operation Date: 03/28/22 08:00 Proposed Procedures p Hysteroscopy w/ Myosure [id number]/n93.9/r10.2(Not Applicable) - Angela Ramos MD s Dilation And Curettage (D&C)(Not Applicable) - Angela Ramos MD
[2022-03-28] MEDS: ceFAZolin 2,000 MG in sodium chloride 0.9% (plus) 50 ML 100 MG IV (08:35)
[2022-03-28] MEDS: miSOPROStol 200 mcg Tablet 800 MCG VAGINAL (09:20)
--- NOTE | 2022-03-28 09:52 | PM.OP ---
Operative Report Date of procedure: March 28, 2022 Pre-op diagnosis: Preop Diagnosis AUB, uterine fibroids, enlarged uterus Post-op diagnosis: same Post-op findings: large septum present. Procedure done: hysteroscopy, D&C, myosure Specimens removed/disposition: endometrial curettings to pathology Surgeon: Angela Ramos Anesthesia: MAC Estimated blood loss (mL): 0 IV fluids (mL): 700 Complications: none Findings: large septate uterus with excessive tissue Condition: stable Disposition: PACU Procedure: The patient was taken to the operating room where monitored anesthesia was administered and to be adequate. She was prepped and draped in the normal sterile fashion in the dorsal lithotomy position in [facility]. A weighted speculum was placed into the vagina and the anterior lip of the cervix grasped with a single-tooth tenaculum. 800 mcg of cytotec was placed vaginally. The uterus was sounded to 10 cm. The cervix was dilated to 16 [place]. The hysteroscope was advanced into the endometrial cavity. There was a large septum and excessive tissue visualized. The MyoSure device was activated and the tissue was removed. Pictures were taken pre and post procedure. All instruments were removed. The patient tolerated the procedure well. Sponge lap and needle counts were correct x3. She was taken to the recovery room in stable condition.
[2022-03-28] MEDS: albuterol 2.5 mg/3 mL Neb INHALATION (09:56)
[2022-03-28] MEDS: racepinephrine 0.5 mL Neb (09:56)
--- NOTE | 2022-03-28 09:58 | PM.DCS ---
Discharge Providers Date of Admission: 03/28/22 Date of Discharge: March 28, 2022 Attending Provider at Admission: Dr. Ramos Attending Provider at Discharge: Angela Ramos MD Primary Care Provider: Navid Alegria MD Reason for Visit Reason for Visit: N93.9 Hospital Course Hospital Course The patient was admitted for surgery. She did well postoperatively and was ready for discharge. Discharge Data Studies Completed and Pending Pending at discharge Category Date Time Status Basic Metabolic Panel Routine Lab 03/28/22 07:43 Ordered Pathology: Surgical [PTH] Routine Pth 03/28/22 09:46 Ordered Laboratory Results Sodium Cancelled 03/28/22 07:20 Potassium Cancelled 03/28/22 07:20 Chloride Cancelled 03/28/22 07:20 Carbon Dioxide Cancelled 03/28/22 07:20 Anion Gap Cancelled 03/28/22 07:20 BUN Cancelled 03/28/22 07:20 Creatinine Cancelled 03/28/22 07:20 GFR Calculation Cancelled 03/28/22 07:20 Glucose Cancelled 03/28/22 07:20 POC Glucose 237 mg/dL (70-110) H 03/28/22 07:17 Calculated Osmolality Cancelled 03/28/22 07:20 Calcium Cancelled 03/28/22 07:20 Vitals Last Vital Signs Temp 97.9 F 03/28/22 09:37 Pulse 135 H 03/28/22 09:52 Resp 27 H 03/28/22 09:52 BP 151/82 03/28/22 09:52 Pulse Ox 99 03/28/22 09:52 O2 Del Method 03/28/22 09:52 O2 Flow Rate 6 03/28/22 09:52 Discharge Plan Discharge Patient Disposition: Home Condition: Stable Prescriptions: Continued Novolog PenFill U-100 Insulin 100 unit/mL cartridge See Rx Instructions .ROUTE .COMPLEX Label Comments: via pump Rx Instructions: via pump naproxen sodium 550 mg tablet 550 mg PO Q12H PRN (Reason: pain) Qty: 60 2RF tizanidine 4 mg Tablet 4 mg PO Q8H PRN (Reason: Muscle Pain) estradiol 1 mg Tablet 1 mg PO DAILY Rx Instructions: ON FOR 16 DAYS, OFF FOR 12 DAYS levothyroxine 50 mcg tablet 50 mcg PO DAILY pantoprazole 40 mg Tablet,Delayed Release (Dr/Ec) 40 mg PO BID lisinopril 10 mg Tablet 10 mg PO DAILY progesterone micronized 200 mg Capsule 200 mg PO DAILY Rx Instructions: ON FOR 12 DAYS, OFF FOR 16 DAYS lactulose 10 gram/15 mL Solution 10 g PO DAILY PRN (Reason: Constipation) celecoxib 200 mg capsule 200 mg PO BID trazodone 50 mg tablet 100 mg PO BEDTIME cetirizine 10 mg tablet 10 mg PO DAILY aspirin 81 mg tablet,delayed release (DR/EC) 81 mg PO DAILY furosemide 20 mg tablet 20 mg PO DAILY albuterol sulfate 90 mcg/actuation HFA aerosol inhaler 1 inh inhalation QID PRN (Reason: Shortness Of Breath) fluticasone propionate 50 mcg/actuation spray,suspension 50 mcg intranasal DAILY PRN (Reason: Nasal Congestion) dexlansoprazole [Dexilant] 60 mg capsule,biphase delayed releas 60 mg PO DAILY Motegrity 2 mg tablet 2 mg PO DAILY atorvastatin 40 mg tablet 40 mg PO BEDTIME oxycodone 10 mg tablet 10 mg PO TID PRN (Reason: Pain) meloxicam 7.5 mg tablet 7.5 mg PO DAILY Qty: 30 0RF erythromycin ethylsuccinate [E.E.S. Granules] 200 mg/5 mL suspension for reconstitution 3.1 mg PO BID Discharge Orders: Discharge Order (Routine); Ordered 03/28/22 Ordered By: Angela Ramos Discharge Attestations Time Spent in Discharge Care*: less than 30 min Quality Metrics Clinical Quality Measures [ No reported AMI, CVA or VTE this stay] Coding Level of Care Code Acute Chg FW DC note
[2022-03-28] MEDS: phenol oral Spray 177 mL 3 SPRAY MUCOUS MEM (10:21)
--- NOTE | 2022-03-28 12:09 | ANE.PACU2 ---
Inpatient post-anesthesia follow up: Airway intact: Yes Vital signs: Temperature 98.2 F Pulse Rate 113 Respiratory Rate 18 Blood Pressure 130/56 Pulse Oximetry 94 Oxygen Delivery Me thod Room Air Oxygen Flow Rate 6 Fraction of Inspir ed Oxygen Hydration adequate: Yes Nausea and vomiting: No Pain level: 1 Mental status: Baseline Additional Comments: excess coughing, given albuterol and attempted racemic epinephrine (d/t intraop bronchospasm), eventually cough cleared with chloraseptic spray
== END 2022-03-28 11:40 | disposition home or self-care (01) ==
PROVIDERS: PCP Family Medicine; Visit Provider Obstetrics & Gynecology
PROC: 0UDB8ZZ Extraction of Endometrium, Via Natural or Artificial Opening Endoscopic (ICD-10-PCS; CPT 58558; principal; 2022-03-28 08:00)
PROC: (CPT 58120; 2022-03-28 08:00)
DX: D25.9 Leiomyoma of uterus, unspecified (principal); N85.2 Hypertrophy of uterus; J44.9 Chronic obstructive pulmonary disease, unspecified; I10 Essential (primary) hypertension; K21.9 Gastro-esophageal reflux disease without esophagitis; E78.5 Hyperlipidemia, unspecified; E66.01 Morbid (severe) obesity due to excess calories; Z68.37 Body mass index [BMI] 37.0-37.9, adult; M06.9 Rheumatoid arthritis, unspecified; E11.40 Type 2 diabetes mellitus with diabetic neuropathy, unspecified; Z79.4 Long term (current) use of insulin; Z79.82 Long term (current) use of aspirin
CPT/HCPCS: 58558; 36415; 36416; 82962; 88305; J0330; J0690; J2370; J2405; J2704; J3010; J3490; J3535; J7030; J7613

== ENCOUNTER → 2022-07-12 14:39 | Outpatient (BNVA) | payer MEDICAID, SELFPAY | PROVIDERS: PCP Family Medicine; Referring Provider Anesthesiology Pain Medicine; Visit Provider Orthopaedic Surgery | DX: M48.062 Spinal stenosis, lumbar region with neurogenic claudication (principal); M54.6 Pain in thoracic spine | CPT/HCPCS: 99214 ==

== ENCOUNTER → 2022-07-12 15:10 | Outpatient (BNVA) | payer MEDICAID, SELFPAY | PROVIDERS: PCP Family Medicine; Referring Provider Anesthesiology Pain Medicine; Visit Provider Orthopaedic Surgery | DX: M48.062 Spinal stenosis, lumbar region with neurogenic claudication (principal); M54.6 Pain in thoracic spine | CPT/HCPCS: 72070; 72110 ==

== ENCOUNTER 2022-08-03 13:26 | Outpatient (CLI) | payer MEDICAID, SELFPAY ==
--- NOTE | 2022-08-03 13:45 | MR_ITS ---
WS: [id number] MRI LUMBAR SPINE NONCONTRAST TECHNIQUE: Sagittal T1, T2 and STIR imaging. Axial T1 and T2 imaging. CLINICAL INFORMATION: back pain COMPARISON: MRI 2020 FINDINGS: Mild lumbar curve. No acute compression. No high-grade central canal stenosis. Mild disc bulging lowe r thoracic spine at T10-T12. Mild lumbar curve. L1-L2: Mild facet arthropathy. L2-L3: No significant disc bulging. Spinal canal and foramen are patent. L3-L4: No significant disc bulging. Mild facet arthropathy. Spinal canal and foramen are patent. L4-L5: Mild annular bulging. Slight effacement of the ventral thecal sac. Spinal canal and foramen ar e patent. L5-S1: Minimal annular bulging. Slight effacement of the RIGHT ventral thecal sac with slight encroac hment on the RIGHT S1 nerve root. Mild facet arthropathy. Spinal canal and foramen are patent. Small renal cysts. Visualized pelvic bony structures: Normal. Paravertebral soft tissues: Normal. MR/MR lumbar spine wo con* [id number] IMPRESSION: Overall no significant changes compared to 202. 1. Mild lumbar curve. No acute compression. No high-grade central canal stenos is. 2. Small central protrusions at T10-T11 T11-T12 unchanged compared to previous . 3. Mild facet arthropathy L3-L5. 4. Shallow RIGHT pericentral protrusion L5-S1 slightly contacts RIGHT S1 nerve root. Recommend correlation for right S1 nerve root symptoms.
--- NOTE | 2022-08-03 14:30 | MR_ITS ---
WS: [id number] MRI THORACIC SPINE WITHOUT CONTRAST TECHNIQUE: Sagittal T1, T2 and STIR imaging. Axial T2 imaging. Noncontrast imaging obtained. CLINICAL INFORMATION: back pain COMPARISON: None. FINDINGS: Mild thoracic curve. Mild thoracic kyphosis. No acute compression. No high-grade central canal stenos is. Cord signal is normal. Small disc protrusions in the lower thoracic spine at T10-T11 T11-T12. LEF T pericentral protrusion T10-T11 with slight indentation on the thoracic cord. Mild central canal beulah nosis. Central disc protrusion T11-T12 with mild central canal stenosis and slight contact of the tho racic cord. Moderate facet arthropathy lower thoracic spine. Mild LEFT T10-T11 and LEFT T11-T12 foraminal narrowi ng. Partially visualized small bilateral renal cysts. MR/MR thoracic spin wo con* [id number] IMPRESSION: 1. Mild thoracic curve. Mild thoracic kyphosis. No acute compression fractures . 2. Cord signal is normal. 3. Small disc protrusions in the lower thoracic spine at T10-T11 and T11-T12 w ith mild central canal stenosis. Slight contact of the thoracic cord. 4. Moderate facet arthropathy lower thoracic spine.
== END 2022-08-03 13:27 | disposition home or self-care (01) ==
LOC: RAD 13:28
PROVIDERS: PCP Family Medicine; Visit Provider Orthopaedic Surgery
DX: M40.204 Unspecified kyphosis, thoracic region (principal); M51.24 Other intervertebral disc displacement, thoracic region
CPT/HCPCS: 72146; 72148; 99214

== ENCOUNTER 2022-08-09 12:59 | Outpatient (CLI) | payer MEDICAID, SELFPAY ==
--- NOTE | 2022-08-09 13:19 | CT_ITS ---
WS: [id number] CT ABDOMEN AND PELVIS WITH CONTRAST HISTORY: ADENOMYOSIS OF THE UTERUS/PELVIC PERINEAL PAIN TECHNIQUE: Imaging performed of the abdomen and pelvis with IV contrast. Single phase imaging of the abdomen. Coronal and sagittal reformats are submitted. All CT scans at [facility] use at [address] one of these dose optimization techniques: automated exposure control; mA and/or kV adjustment per patient size (includes targeted exams where dose is matched to clinical indication); or iterative re construction. IV CONTRAST: Omnipaque 350; 100 mL IV. Oral contrast: No DLP: 767.43 mGy.cm COMPARISON: 03/04/2022, 04/06/2020 Lower thorax: Very mild pleural thickening LEFT lung base. Also noted on the prior exam from 2. There is adjacent rib fracture posterior LEFT lower thorax. 1 No hiatal hernia. Liver/biliary system: Normal size with no intrahepatic dilatation. Gallbladder: Prior cholecystectomy. Pancreas: Normal size pancreas. There is a low-attenuation mass inseparable from the pancreatic tail and very closely associated with the LEFT adrenal gland. Mass measures 11 mm and is stable since 2020 with no increase in size. Spleen: Normal size spleen. No mass or infarct. Adrenal glands: Normal. Right kidney: Normal size kidney with no obstruction. Cortical cyst 9 mm. No ureteral obstruction. Left kidney: Normal. Aorta: Mild atherosclerosis with no aneurysm. Lymphadenopathy: None. Free fluid: None. GI tract: Nondistended stomach. No small bowel obstruction. Retrocecal appendix. No evidence for appe ndicitis. No colon obstruction. Abdominal wall: Unremarkable abdominal wall. No hernia. Pelvis: Well-distended urinary bladder. Prior hysterectomy. Bones: Increase in the lumbar lordosis. CT/CT abdomen pelvis w con* [id number] IMPRESSION: 1. Prior cholecystectomy and hysterectomy. 2. No pelvic masses. No deposits of soft tissue along the scar. 3. Long-term stability 11 mm low-attenuation mass inseparable from the pancrea tic tail and the adrenal gland. I suspect this is probably related to the pancr eas. May be an IPMN. This has been described before. 4. No acute intra-abdominal or pelvic abnormalities identified.
[2022-08-09] MEDS: iohexol 350 mg/mL 500 mL Btl (per mL) IV (13:56)
== END 2022-08-09 13:00 | disposition home or self-care (01) ==
LOC: RAD 13:02
PROVIDERS: PCP Family Medicine; Visit Provider Nurse Practitioner Family
DX: N80.03 Adenomyosis of the uterus (principal); Z90.49 Acquired absence of other specified parts of digestive tract; Z90.710 Acquired absence of both cervix and uterus
CPT/HCPCS: 74177; Q9967

== ENCOUNTER → 2022-08-21 13:39 | Outpatient (BNVA) | payer MEDICAID, SELFPAY | PROVIDERS: PCP Family Medicine; Visit Provider Orthopaedic Surgery | DX: M48.062 Spinal stenosis, lumbar region with neurogenic claudication (principal) | CPT/HCPCS: 99214 ==

== ENCOUNTER 2022-09-15 21:30 | Emergency (ER) | payer MEDICAID, SELFPAY ==
[2022-09-15] VITALS (8 sets, daily range): BP systolic 128–152; BP diastolic 69–96; PULSE 75–88; RESP 14–22; TEMP 36.7; O2SAT 95–97; BMI 38.9
--- NOTE | 2022-09-15 21:37 | ECG_ITS ---
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 Measurements Intervals [place] Rate: 70 P: 63 [place]: 146 QRS: 79 QRSD: 84 T: 43 QT: 399 QTc: 433 Interpretive Statements SINUS RHYTHM LOW QRS VOLTAGE IN PRECORDIAL LEADS [QRS DEFLECTION < 1.0 mV IN CHEST LEADS] Compared to ECG 07/17/2021 20:03:32 No significant changes Electronically Signed On 09-17-2022 7:59:44 CDT by Mekhi Haynes M.D. [id number]
--- NOTE | 2022-09-15 22:06 | XRR_ITS ---
PROCEDURE INFORMATION: Exam: XR Chest Exam date and time: 09/15/2022 10:23 PM Age: 47 years old Clinical indication: Pain; Chest pressure; Additional info: Cp TECHNIQUE: Imaging protocol: Radiologic exam of the chest. Views: 1 view. COMPARISON: CR XR chest 1V portable [id number] 07/17/2021 7:32 PM FINDINGS: Lungs: Unremarkable. No consolidation. Pleural spaces: Unremarkable. No pleural effusion. No pneumothorax. Heart/Mediastinum: Unremarkable. No cardiomegaly. Bones/joints: Unremarkable. XR/XR chest 1V portable [id number] IMPRESSION: No acute findings.
--- NOTE | 2022-09-15 22:07 | ECG_ITS ---
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 Measurements Intervals [place] Rate: 75 P: 67 [place]: 147 QRS: 67 QRSD: 85 T: 39 QT: 399 QTc: 448 Interpretive Statements SINUS RHYTHM POSSIBLE RIGHT VENTRICULAR CONDUCTION DELAY [RSR (QR) IN V1/V2] Compared to ECG 09/15/2022 21:42:27 No significant changes Electronically Signed On 09-17-2022 7:58:52 CDT by Mekhi Haynes M.D. [id number]
[2022-09-15 22:17] LABS: Basophils # 0.2 10^3/uL (0.0-0.1); Basophils % 1.8 %; Eosinophils # 0.2 10^3/uL (0.0-0.8); Eosinophils % 1.7 %; Hematocrit 45.8 % (37.0-47.0); Hemoglobin 14.6 g/dL (11.5-15.3); Lymphocytes # 4.5 10^3/uL (0.8-4.8); Lymphocytes % 45.2 %; Mean Corpuscular HGB Conc 31.9 g/dL (30.0-36.0); Mean Corpuscular Hemoglobin 28.5 pg (28.0-34.0); Mean Corpuscular Volume 89.5 fl (81-99); Mean Platelet Volume 11.9 fL (7.4-10.4); Monocytes # 0.8 10^3/uL (0.2-0.9); Monocytes % 7.6 %; Neutrophils # 4.36 10^3/uL (1.8-7.7); Neutrophils % 43.4 %; Nucleated Red Blood Cells % 0 %; Platelet Count 237 10^3/cmm (130-400); Red Blood Count 5.12 10^6/uL (4.1-5.3)
[2022-09-15] MEDS: nitroglycerin 1 gm/inch oint Pkt 1 INCH TOPICAL (22:21)
[2022-09-15 22:23] LABS: INR 0.93 (0.8-1.2)
[2022-09-15] MEDS: morphine 4 mg/mL SDV 1 mL IVP (22:23)
[2022-09-15 22:24] LABS: Partial Thromboplastin Time 29.5 SECONDS (23.9-36.7)
[2022-09-15] MEDS: ondansetron 2 mg/ML SDV 2 mL 4 MG IVP (22:27)
[2022-09-15 22:34] LABS: Troponin(5th) Baseline 6 ng/L (0-10)
[2022-09-15 22:43] LABS: Alanine Aminotransferase 24 U/L (0-33); Albumin Level 4.3 g/dL (3.5-5.2); Alkaline Phosphatase 80 U/L (35-105); Aspartate Amino Transferase 24 U/L (0-32); Blood Urea Nitrogen 14 mg/dL (6-20); Calcium 8.9 mg/dL (8.5-10.5); Carbon Dioxide 24 mmol/L (22-29); Chloride 101 mmol/L (98-107); Glomerular Filtration Rate 59.4 mL/min (90-130); Glucose 86 mg/dL (65-115); NT Pro B Type Natriuretic Pept 231 pg/mL (0-125); Osmolality Calculated 282 mOsm/kg (285-295); Sodium 136 mmol/L (136-145); Total Bilirubin 0.2 mg/dL (0.15-1.2); Total Protein 7.3 g/dL (6.6-8.7)
[2022-09-16 00:30] VITALS: BP 162/70; PULSE 80; RESP 20; O2SAT 96
[2022-09-16 00:42] LABS: Troponin 5 2HR Delta 0 ABS# (0-10)
[2022-09-16 01:13] VITALS: BP 129/83; PULSE 77; RESP 17; O2SAT 95
--- NOTE | 2022-09-16 14:48 | W.ED.CHESTPA ---
HPI - Chest Pain General: Chief Complaint: Chest Pain Stated Complaint: CP Time Seen by Provider: 09/15/22 21:32 Source: patient History of Present Illness: 47 year old female with sudden onset chest discomfort at home while at rest. Pain is centralized, and radiates into her left shoulder. It seemed to improve with nitroglycerin on EMS arrival. She knows that it is returning currently. Minimal shortness of breath. She has tendered to palpation. No vomiting. No prior history of coronary disease. MD complaint: chest pain Onset (ago): hour(s) Prior episodes: Yes Pain location: substernal Pain radiation: left shoulder Severity: moderate Quality: sharp Relieving factors: nitroglycerin Exacerbating factors: nothing Context: other Associated symptoms: Deny abdominal pain, diaphoresis, dyspnea, fever(s), leg edema, nausea, palpitations, syncope or vomiting Risk Factors: Coronary artery disease risk factors: diabetes, smoking history and hypertension Review of Systems Const: Denies: fever(s) or diaphoresis ENMT: Denies: throat pain Card: Reports: chest pain; Denies: palpitations or syncope Resp: Denies: dyspnea GI: Denies: abdominal pain, nausea or vomiting Psych: Reports: anxiety PFSH ED PFSH: Medical History Anxiety Bulging lumbar disc Chronic constipation DDD (degenerative disc disease) Diabetes mellitus type 1- pump Essential (primary) hypertension GERD (gastroesophageal reflux disease) High risk medication use Hyperlipidemia Immunization counseling Immunization counseling Insomnia Leukocytosis Neuropathy Nicotine addiction Onychodystrophy PAD (peripheral artery disease) Removal of other organ (partial) (total) as the cause of abnormal reaction of the patient, or of later complication, without mention of misadventure at the time of the procedure partial removal of spleen and pancreace 2006 performed in [place] S/P angiogram of extremity Seronegative rheumatoid arthritis Seronegative rheumatoid arthritis of both hands Sleep disorder Spinal stenosis Thoracic disc disease Visual snow syndrome Surgical History H/O gastric sleeve 12/20/20 in [facility] History of dental surgery History of esophagogastroduodenoscopy (EGD) S/P section S/P cholecystectomy S/P tubal ligation 1996 Family History Mother Diabetes Hypertension Grandfather Diabetes Maternal Grandmother Diabetes Maternal Father Heart disease Hypertension Family/Other Breast cancer Maternal Aunt and Paternal Aunts Sister Uterine cancer Other Hypercholesterolemia Physical Exam Const: COMMON NORMALS: no acute distress GENERAL APPEARANCE: cooperative; not ill appearing and not frail appearing HENMT: COMMON NORMALS: normocephalic, atraumatic and Normal external nose present HEAD & SCALP: normocephalic and atraumatic FACE & SINUS: normal facial exam and face symmetric NOSE: Normal external nose present Eye: COMMON NORMALS: Equal, round and reactive pupils present and EOMs intact bilaterally PUPIL: Yes Equal, round and reactive pupils present Neck/C-Spine: GENERAL: Yes trachea midline Chest: CHEST: Yes Symmetrical chest wall rise and Yes tenderness costochondral junction Resp: COMMON NORMALS: normal respiratory effort, No retractions, No use of accessory muscles and clear to auscultation bilaterally AUSCULTATION: clear to auscultation bilaterally Cardio: COMMON NORMALS: regular rate and regular rhythm RATE: regular rate RHYTHM: regular rhythm GI: COMMON NORMALS: Normal to inspection, nondistended, normoactive bowel sounds present Extremity: COMMON NORMALS: no pedal edema Neuro: KANE COMA SCALE: document GCS findings [place] coma scale eye opening: Spontaneous Kane coma scale verbal response: Orientated Kane coma scale motor response: Obey commands Kane coma scale total score: 15 SENSORY EXAM: Yes extremities (intact) Psych: COMMON NORMALS: speech normal SPEECH: Yes normal speech Skin: COMMON NORMALS: no rashes or lesions noted GENERAL SKIN EXAM: no rashes or lesions noted Course Vital Signs: Vital signs: Vital Signs Temperature 98.0 F 09/15/22 21:32 Pulse Rate 77 09/16/22 01:13 Respiratory Rate 17 09/16/22 01:13 Blood Pressure 129/83 09/16/22 01:13 Pulse Oximetry 95 09/16/22 01:13 Oxygen Delivery Me thod Room Air 09/16/22 00:30 MDM - Chest Pain Medical Decision Making Chest pain essentially resolved after medication in the ER. She's much improved. Her vitals were normal. Her chest X-ray is negative. EKG shows no acute St. changes. Delta troponin at 2 hours is zero. She is non tachycardic, non hypoxic. Her pain is reproducible. She will be allowed discharge. Close outpatient follow up, to return for return of pain or other symptoms. Lab Data 09/15/22 21:16 09/15/22 21:16 Radiology Impressions Chest X-Ray 09/15/22 22:06 IMPRESSION: No acute findings. Laboratory Results WBC 10.0 10^3/uL (4.0-10.0) 09/15/22 21:16 RBC 5.12 10^6/uL (4.1-5.3) 09/15/22 21:16 Hgb 14.6 g/dL (11.5-15.3) 09/15/22 21:16 Hct 45.8 % (37.0-47.0) 09/15/22 21:16 MCV 89.5 fl (81-99) 09/15/22 21:16 MCH 28.5 pg (28.0-34.0) 09/15/22 21:16 MCHC 31.9 g/dL (30.0-36.0) 09/15/22 21:16 RDW 15.0 % (12.1-15.1) 09/15/22 21:16 Plt Count 237 10^3/cmm (130-400) 09/15/22 21:16 MPV 11.9 fL (7.4-10.4) H 09/15/22 21:16 Neut % (Auto) 43.4 % 09/15/22 21:16 Lymph % (Auto) 45.2 % 09/15/22 21:16 [place] % (Auto) 7.6 % 09/15/22 21:16 Eos % (Auto) 1.7 % 09/15/22 21:16 Baso % (Auto) 1.8 % 09/15/22 21:16 Neut # (Auto) 4.36 10^3/uL (1.8-7.7) 09/15/22 21:16 Lymph # (Auto) 4.5 10^3/uL (0.8-4.8) 09/15/22 21:16 [place] # (Auto) 0.8 10^3/uL (0.2-0.9) 09/15/22 21:16 Eos # (Auto) 0.2 10^3/uL (0.0-0.8) 09/15/22 21:16 Baso # (Auto) 0.2 10^3/uL (0.0-0.1) H 09/15/22 21:16 Nucleated RBC % (auto) 0 % 09/15/22 21:16 Nucleated RBCs # 0.0 /100WBC 09/15/22 21:16 PT 12.80 SECONDS (12.1-14.9) 09/15/22 21:16 INR 0.93 (0.8-1.2) 09/15/22 21:16 APTT 29.5 SECONDS (23.9-36.7) 09/15/22 21:16 Sodium 136 mmol/L (136-145) 09/15/22 21:16 Potassium 4.0 mmol/L (3.5-5.1) 09/15/22 21:16 Chloride 101 mmol/L (98-107) 09/15/22 21:16 Carbon Dioxide 24 mmol/L (22-29) 09/15/22 21:16 Anion Gap 15.0 (5-19) 09/15/22 21:16 BUN 14 mg/dL (6-20) 09/15/22 21:16 Creatinine 1.0 mg/dL (0.5-0.9) H 09/15/22 21:16 GFR Calculation 59.4 mL/min (90-130) L 09/15/22 21:16 Glucose 86 mg/dL (65-115) 09/15/22 21:16 Calculated Osmolality 282 mOsm/kg (285-295) L 09/15/22 21:16 Calcium 8.9 mg/dL (8.5-10.5) 09/15/22 21:16 Total Bilirubin 0.2 mg/dL (0.15-1.2) 09/15/22 21:16 AST 24 U/L (0-32) 09/15/22 21:16 ALT 24 U/L (0-33) 09/15/22 21:16 Alkaline Phosphatase 80 U/L (35-105) 09/15/22 21:16 Troponin T Baseline 6 ng/L (0-10) 09/15/22 21:16 Troponin T 120 Minute 6.00 ng/L (0-10) 09/16/22 00:03 Delta Troponin T 0 ABS# (0-10) 09/16/22 00:03 NT-Pro-B Natriuret Pep 231 pg/mL (0-125) H 09/15/22 21:16 Total Protein 7.3 g/dL (6.6-8.7) 09/15/22 21:16 Albumin 4.3 g/dL (3.5-5.2) 09/15/22 21:16 Globulin 3.0 g/dL (1.3-4.6) 09/15/22 21:16 Discharge Plan Discharge Patient Disposition: Home Clinical Impression: Chest pain Condition: Stable Prescriptions: No Action Novolog PenFill U-100 Insulin 100 unit/mL cartridge See Rx Instructions .ROUTE .COMPLEX Patient Comments: via pump Rx Instructions: via pump naproxen sodium 550 mg tablet 550 mg PO Q12H PRN (Reason: pain) Qty: 60 2RF fluticasone propionate 50 mcg/actuation spray,suspension See Rx Instructions .ROUTE .COMPLEX Qty: 16 3RF Dose Instruction: instill ONE OR TWO SPRAY IN EACH NOSTRIL DAILY Rx Instructions: instill ONE OR TWO SPRAY IN EACH NOSTRIL DAILY meloxicam 7.5 mg tablet See Rx Instructions .ROUTE .COMPLEX Qty: 30 0RF Dose Instruction: TAKE ONE TABLET BY MOUTH EVERY DAY Rx Instructions: TAKE ONE TABLET BY MOUTH EVERY DAY trazodone 50 mg tablet See Rx Instructions .ROUTE .COMPLEX Qty: 60 5RF Dose Instruction: TAKE TWO TABLETS BY MOUTH AT BEDTIME NEEDED FOR insomnia Rx Instructions: TAKE TWO TABLETS BY MOUTH AT BEDTIME NEEDED FOR insomnia celecoxib 200 mg capsule See Rx Instructions .ROUTE .COMPLEX Qty: 60 5RF Dose Instruction: TAKE ONE CAPSULE BY MOUTH TWICE DAILY Rx Instructions: TAKE ONE CAPSULE BY MOUTH TWICE DAILY tizanidine 4 mg Tablet 4 mg PO Q8H PRN (Reason: Muscle Pain) estradiol 1 mg Tablet 1 mg PO DAILY Rx Instructions: ON FOR 16 DAYS, OFF FOR 12 DAYS levothyroxine 50 mcg tablet 50 mcg PO DAILY pantoprazole 40 mg Tablet,Delayed Release (Dr/Ec) 40 mg PO BID lisinopril 10 mg Tablet 10 mg PO DAILY progesterone micronized 200 mg Capsule 200 mg PO DAILY Rx Instructions: ON FOR 12 DAYS, OFF FOR 16 DAYS lactulose 10 gram/15 mL Solution 10 g PO DAILY PRN (Reason: Constipation) cetirizine 10 mg tablet 10 mg PO DAILY aspirin 81 mg tablet,delayed release (DR/EC) 81 mg PO DAILY furosemide 20 mg tablet 20 mg PO DAILY albuterol sulfate 90 mcg/actuation HFA aerosol inhaler 1 inh inhalation QID PRN (Reason: Shortness Of Breath) dexlansoprazole [Dexilant] 60 mg capsule,biphase delayed releas 60 mg PO DAILY Motegrity 2 mg tablet 2 mg PO DAILY atorvastatin 40 mg tablet 40 mg PO BEDTIME oxycodone 10 mg tablet 10 mg PO TID PRN (Reason: Pain) erythromycin ethylsuccinate [E.E.S. Granules] 200 mg/5 mL suspension for reconstitution 3.1 mg PO BID Discharge Orders: Discharge ED (Routine); Ordered 09/16/22 Ordered By: Ovi [place] Referrals: Earnest Adasm DO [Primary Care Provider] - 4-7 days Patient Instructions: Chest Pain (ED) Coding Level of Care Code ED Slag Wheeler for Buddy Barlow
== END 2022-09-16 01:16 | disposition home or self-care (01) ==
PROVIDERS: Emergency Provider Emergency Medicine; PCP Family Medicine
DX: R07.9 Chest pain, unspecified (principal); Z79.4 Long term (current) use of insulin; Z79.82 Long term (current) use of aspirin; E10.9 Type 1 diabetes mellitus without complications; Z96.41 Presence of insulin pump (external) (internal); I10 Essential (primary) hypertension
CPT/HCPCS: 71045; 80053; 83880; 84484; 85025; 85610; 85730; 93005; 96374; 96375; 99285; J2270; J2405

== ENCOUNTER 2023-01-05 16:18 | Inpatient (IN) | payer MEDICAID, SELFPAY ==
[2023-01-05 16:21] VITALS: BP 139/79; PULSE 89; RESP 18; TEMP 36.6; O2SAT 97; BMI 40.2
[2023-01-05 16:52] LABS: Basophils # 0.2 10^3/uL (0.0-0.1); Basophils % 1.6 %; Eosinophils # 0.1 10^3/uL (0.0-0.8); Eosinophils % 1.2 %; Hematocrit 47.6 % (36-47); Lymphocytes # 3.8 10^3/uL (0.8-4.8); Lymphocytes % 34.9 %; Mean Corpuscular HGB Conc 32.4 g/dL (30-55); Mean Corpuscular Hemoglobin 28.6 pg (27-33); Mean Corpuscular Volume 88.5 fl (85-98); Mean Platelet Volume 11.5 fL (7.4-10.4); Monocytes # 0.9 10^3/uL (0.2-0.9); Nucleated Red Blood Cells % 0 %; Platelet Count 214 10^3/cmm (157-399); Red Blood Count 5.38 10^6/uL (3.85-5.65); Red Cell Distribution Width 14.5 % (12.1-15.1); White Blood Count 10.94 10^3/uL (3.29-11.43)
[2023-01-05 17:03] LABS: Alanine Aminotransferase 16 U/L (0-33); Albumin Level 4.3 g/dL (3.5-5.2); Alkaline Phosphatase 92 U/L (35-105); Blood Urea Nitrogen 14 mg/dL (6-20); Calcium 9.3 mg/dL (8.5-10.5); Carbon Dioxide 26 mmol/L (22-29); Chloride 102 mmol/L (98-107); Globulin 3.1 g/dL (1.3-4.6); Glomerular Filtration Rate 53.2 mL/min (90-130); Glucose 90 mg/dL (65-115); Osmolality Calculated 288 mOsm/kg (285-295); Sodium 139 mmol/L (136-145); Total Bilirubin 0.2 mg/dL (0.15-1.2); Total Protein 7.4 g/dL (6.6-8.7)
[2023-01-05 17:08] LABS: Acetaminophen < 5.0 ug/mL (10-30); Alcohol Level < 10 mg/dL (0-10); Anion Gap 15.8 (5-19); Aspartate Amino Transferase 20 U/L (0-32); Potassium 4.8 mmol/L (3.5-5.1); Salicylate < 0.3 mg/dL (3-10)
--- NOTE | 2023-01-05 17:21 | ED.C_ITS ---
HPI - Psych General: Chief Complaint: Psychiatric Symptoms Stated Complaint: psych eval Time Seen by Provider: 01/05/23 16:24 History of Present Illness: Patient presents to the ER with complaints of having suicidal thoughts. Has been having worsening depression over the last 3 months. Patient has had suicidal attempt in the past. She currently is only having thoughts and does n ot have a plan. Patient says she is on a wait list for with [facility] for ep specialist and says she has a therapist. Patient is taking all of her medicine as prescribed. Patient is an insulin dependent diabetic with a pump per nursing patient is having auditory and visual hallucinations as well as tactile hallucinations. She says these hallucinations tell her that they are they are going to hurt her. And then she begins to feel pain in her stomach. Review of Systems General: Reports: 10 or more systems reviewed and unremarkable except in HPI and below PFSH ED PFSH: Medical History Anxiety Bulging lumbar disc Chronic constipation DDD (degenerative disc disease) Diabetes mellitus type 1- pump Essential (primary) hypertension GERD (gastroesophageal reflux disease) High risk medication use Hyperlipidemia Immunization counseling Immunization counseling Insomnia Leukocytosis Neuropathy Nicotine addiction Onychodystrophy PAD (peripheral artery disease) Psychiatric care Removal of other organ (partial) (total) as the cause of abnormal reaction of the patient, or of later complication, without mention of misadventure at the time of the procedure partial removal of spleen and pancreace 2006 performed in [place] S/P angiogram of extremity Seronegative rheumatoid arthritis Seronegative rheumatoid arthritis of both hands Sleep disorder Spinal stenosis Thoracic disc disease Visual snow syndrome Surgical History H/O gastric sleeve 12/20/20 in [facility] History of dental surgery History of esophagogastroduodenoscopy (EGD) S/P section S/P cholecystectomy S/P tubal ligation 1996 Family History Mother Diabetes Hypertension Grandfather Diabetes Maternal Grandmother Diabetes Maternal Father Heart disease Hypertension Family/Other Breast cancer Maternal Aunt and Paternal Aunts Sister Uterine cancer Other Hypercholesterolemia Physical Exam Const: COMMON NORMALS: no acute distress, average body habitus, patient oriented x3, no limitations, healthy appearing, alert and well nourished HENMT: COMMON NORMALS: normocephalic, atraumatic, hearing grossly normal bilaterally, external ears normal, Normal external nose present and moist oral mucous membranes HEAD & SCALP: normocephalic and atraumatic NOSE: Normal external nose present EXTERNAL EAR: Yes external ears normal Eye: COMMON NORMALS: Equal, round and reactive pupils present, EOMs intact bilaterally, conjunctivae normal and no scleral icterus CONJUNCTIVA: Yes conjunctivae normal PUPIL: Yes Equal, round and reactive pupils present Neck/C-Spine: COMMON NORMALS: full ROM, no lymphadenopathy, supple, no meningeal signs, no JVD and Thyroid normal THYROID: Thyroid normal Chest: COMMONS NORMALS: normal inspection of the chest and normal palpation of entire chest wall Resp: COMMON NORMALS: normal respiratory effort, No retractions, No use of accessory muscles and clear to auscultation bilaterally AUSCULTATION: clear to auscultation bilaterally Cardio: COMMON NORMALS: no JVD, regular rate, regular rhythm, S1 normal heart sound present, S2 normal heart sound present, No gallops present (Cardio), No clicks present (Cardio), No murmurs present (Cardio) and No rub (Cardio) RATE: regular rate RHYTHM: regular rhythm HEART SOUNDS: S1 normal heart sound present and S2 normal heart sound present GI: COMMON NORMALS: Normal to inspection, nondistended, normoactive bowel sounds present, Soft to palpation, non-tender and No hepatosplenomegaly present PALPATION: Yes Soft to palpation and Yes No hepatosplenomegaly present Neuro: COMMON NORMALS: patient oriented x3 SENSORIUM/ORIENTATION: Yes alert MENINGEAL SIGNS: Yes no meningeal signs Course Vital Signs: Vital signs: Vital Signs Temperature 97.8 F 01/05/23 16:21 Pulse Rate 89 01/05/23 16:21 Respiratory Rate 18 01/05/23 16:21 Blood Pressure 139/79 01/05/23 16:21 Pulse Oximetry 97 01/05/23 16:21 [facility] - Psych Medical Decision Making Patient presents to the ER with suicidal ideation as well as auditory visual and tactile hallucinations. At first patient was voluntary while waiting for the lab work to come back which was benign patient change her mind and decided to leave. Patient will be placed on a 96-hour hold for her suicidal ideation. Dr. Fox was consulted who agrees to inpatient treatment for further evaluation. Patient will be admitted to [facility]. Differential Diagnosis Likely suicidal ideation; Unlikely acute psychosis, chronic schizophrenia, bipolar disorder, depression, drug-induced psychotic disorder or acute anxiety Medical Records I reviewed the patient's medical records. Lab Data I reviewed the patient's lab results. 01/05/23 16:40 01/05/23 16:40 Laboratory Results WBC 10.94 10^3/uL (3.29-11.43) 01/05/23 16:40 RBC 5.38 10^6/uL (3.85-5.65) 01/05/23 16:40 Hgb 15.40 g/dL (11.27-16.99) 01/05/23 16:40 Hct 47.6 % (36-47) H 01/05/23 16:40 MCV 88.5 fl (85-98) 01/05/23 16:40 MCH 28.6 pg (27-33) 01/05/23 16:40 MCHC 32.4 g/dL (30-55) 01/05/23 16:40 RDW 14.5 % (12.1-15.1) 01/05/23 16:40 Plt Count 214 10^3/cmm (157-399) 01/05/23 16:40 MPV 11.5 fL (7.4-10.4) H 01/05/23 16:40 Neut % (Auto) 54.0 % 01/05/23 16:40 Lymph % (Auto) 34.9 % 01/05/23 16:40 [place] % (Auto) 8.0 % 01/05/23 16:40 Eos % (Auto) 1.2 % 01/05/23 16:40 Baso % (Auto) 1.6 % 01/05/23 16:40 Neut # (Auto) 5.90 10^3/uL (1.8-7.7) 01/05/23 16:40 Lymph # (Auto) 3.8 10^3/uL (0.8-4.8) 01/05/23 16:40 [place] # (Auto) 0.9 10^3/uL (0.2-0.9) 01/05/23 16:40 Eos # (Auto) 0.1 10^3/uL (0.0-0.8) 01/05/23 16:40 Baso # (Auto) 0.2 10^3/uL (0.0-0.1) H 01/05/23 16:40 Nucleated RBC % (auto) 0 % 01/05/23 16:40 Nucleated RBCs # 0.0 /100WBC 01/05/23 16:40 Sodium 139 mmol/L (136-145) 01/05/23 16:40 Potassium 4.8 mmol/L (3.5-5.1) 01/05/23 16:40 Chloride 102 mmol/L (98-107) 01/05/23 16:40 Carbon Dioxide 26 mmol/L (22-29) 01/05/23 16:40 Anion Gap 15.8 (5-19) 01/05/23 16:40 BUN 14 mg/dL (6-20) 01/05/23 16:40 Creatinine 1.1 mg/dL (0.5-0.9) H 01/05/23 16:40 GFR Calculation 53.2 mL/min (90-130) L 01/05/23 16:40 Glucose 90 mg/dL (65-115) 01/05/23 16:40 Calculated Osmolality 288 mOsm/kg (285-295) 01/05/23 16:40 Calcium 9.3 mg/dL (8.5-10.5) 01/05/23 16:40 Total Bilirubin 0.2 mg/dL (0.15-1.2) 01/05/23 16:40 AST 20 U/L (0-32) 01/05/23 16:40 ALT 16 U/L (0-33) 01/05/23 16:40 Alkaline Phosphatase 92 U/L (35-105) 01/05/23 16:40 Total Protein 7.4 g/dL (6.6-8.7) 01/05/23 16:40 Albumin 4.3 g/dL (3.5-5.2) 01/05/23 16:40 Globulin 3.1 g/dL (1.3-4.6) 01/05/23 16:40 HCG, Qual Negative (Negative) 01/05/23 12:10 Urine Color Yellow (Yellow) 01/05/23 17:43 Urine Appearance Sl hazy (CLEAR) A 01/05/23 17:43 Urine pH 6 (5-7) 01/05/23 17:43 Ur Specific [place] 1.015 (1.005-1.030) 01/05/23 17:43 Urine Protein Trace (Negative) 01/05/23 17:43 Urine Glucose (UA) Norm (Normal) 01/05/23 17:43 Urine Ketones 1+ (Negative) H 01/05/23 17:43 Urine Blood Neg (Negative) 01/05/23 17:43 Urine Nitrate Negative (Negative) 01/05/23 17:43 Urine Bilirubin Neg (Negative) 01/05/23 17:43 Urine Urobilinogen Norm mg/dL (Negative) 01/05/23 17:43 Ur Leukocyte Esterase Negative (Negative) 01/05/23 17:43 Urine RBC 0-4 /hpf (0-2) H 01/05/23 17:43 Urine WBC 0-4 /hpf (0-5) H 01/05/23 17:43 Ur Squamous Epith Cells 10-15 /hpf (0-5) H 01/05/23 17:43 Amorphous Sediment Not Reportable 01/05/23 17:43 Urine Bacteria 1+ /hpf (NONE) H 01/05/23 17:43 Salicylates < 0.3 mg/dL (3-10) L 01/05/23 16:40 Urine Opiates Screen Negative ng/mL (Negative) 01/05/23 17:43 Acetaminophen < 5.0 ug/mL (10-30) L 01/05/23 16:40 Ur Barbiturates Screen Negative ng/mL (Negative) 01/05/23 17:43 Ur Phencyclidine Scrn Negative ng/mL (Negative) 01/05/23 17:43 Ur Amphetamines Screen Negative ng/mL (Negative) 01/05/23 17:43 U Benzodiazepines Scrn Negative ng/mL (Negative) 01/05/23 17:43 Urine Cocaine Screen Negative ng/mL (Negative) 01/05/23 17:43 U Marijuana (THC) Screen Negative ng/mL (Negative) 01/05/23 17:43 Ethyl Alcohol < 10 mg/dL (0-10) 01/05/23 16:40 No radiology studies performed this visit Discharge Plan Discharge Patient Disposition: Admitted As Inpatient Clinical Impression: Suicidal ideation, Auditory hallucinations, Hallucination, visual, Tactile hallucination Condition: Stable Coding Level of Care Code ED Flatwork Ironer for Buddy Barlow
--- NOTE | 2023-01-05 17:47 | PC.NURSE ---
RN AT BEDSIDE TO ATTEMPT TO HAVE PATIENT DRESS OUT IN PAPER SCRUBS, ALONG WITH PLACING ALL OF HER BELONGINGS IN FILE CABINET ONE OF WHICH IS A WALKING STICK. PATIENT AT THIS TIME IS DENYING TO DRESS OUT IN SCRUBS AND GIVE UP HER BELONGINGS. PATIENT WAS EDUCATED ON THE NEEDS FOR THIS DUE TO HER BEING SI. PATIENT BEGAN TO BECOME IRATE. MD INFORMED AND SECURITY CALLED TO ADDRESS PATIENT.
--- NOTE | 2023-01-05 18:00 | PC.NURSE ---
RN AT BEDSIDE, PATIENT VERBALIZED UNDERSTANDING WITH PROCEDURE FOR SI. PATIENT DRESSED OUT AND BELONGINGS REMOVED FROM ROOM. PATIENT WITH INSULIN PUMP AND DEXCOM ON RIGHT LOWER ABDOMEN. PATIENT GIVEN JUICE AT HER REQUEST.
[2023-01-05 18:01] LABS: HCG Qualitative Urine. Negative (Negative)
[2023-01-05 18:02] LABS: Add Urine Microscopic? YES; Bilirubin Urine Neg (Negative); Blood Urine Neg (Negative); Glucose Urine UA Norm (Normal); Ketones Urine 1+ (Negative); Leukocyte Esterase Urine Negative (Negative); Nitrate Urine Negative (Negative); Protein Urine Trace (Negative); RBC Urine 0-4 /hpf (0-2); Specific Gravity, Urine 1.015 (1.005-1.030); Urine Appearance SL Hazy (CLEAR); Urine Color Yellow (Yellow); Urobilinogen Urine Norm (Negative); WBC Urine 0-4 /hpf (0-5); pH Urine 6 (5-7)
[2023-01-05 18:03] LABS: Add Urine Culture? No; Bacteria Urine 1+ /hpf
[2023-01-05 18:07] LABS: Amphetamines Screen Urine Negative (Negative); Barbiturates Screen Urine Negative (Negative); Benzodiazepines Screen Urine Negative (Negative); Cocaine Screen Urine Negative (Negative); Opiate Screen Urine Negative (Negative); PCP Screen Urine Negative (Negative); THC Screen Urine Negative (Negative)
[2023-01-05 19:43] VITALS: PULSE 133; RESP 20; O2SAT 93
[2023-01-05] MEDS: LORazepam 2 mg/mL INJ 1 mL IM (19:45)
[2023-01-05] MEDS: haloperidol inj 5 mg/mL INJ 1 mL 10 MG IM (19:45)
[2023-01-05] MEDS: diphenhydrAMINE 50 mg/mL SDV 1mL IM (19:45)
[2023-01-05 20:00] VITALS: BP 159/131; PULSE 121; RESP 18; O2SAT 96
[2023-01-05 20:23] LABS: Glucose Point of Care 113 mg/dL (70-110)
[2023-01-05 20:45] VITALS: BP 129/76; PULSE 93; RESP 16; O2SAT 90
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
[2023-01-05 21:09] VITALS: BP 129/76; PULSE 93; RESP 16; O2SAT 90
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
[2023-01-05 22:00] VITALS: BP 142/80; PULSE 92; RESP 18; TEMP 36.9; O2SAT 100
[2023-01-05] MEDS: nicotine 4 mg lozenge MUCOUS MEM (22:01)
[2023-01-06 06:00] VITALS: BP 121/76; PULSE 82; RESP 16; O2SAT 92
[2023-01-06 06:47] LABS: Glucose Point of Care 110 mg/dL (70-110)
[2023-01-06] MEDS: budesonide 0.5 mg/2 mL Neb INHALATION (07:43)
[2023-01-06] MEDS: albuterol 2.5 mg/3 mL Neb INHALATION (07:43)
[2023-01-06 07:46] VITALS: PULSE 92; RESP 18; O2SAT 96
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
[2023-01-06] MEDS: aspirin 81 mg EC Tablet PO (12:03)
[2023-01-06] MEDS: estradiol 1 mg Tablet PO (12:03)
[2023-01-06] MEDS: pantoprazole DR 40 mg Tablet PO (12:03)
[2023-01-06] MEDS: venlafaxine ER (24HR) 150 mg Capsule PO (12:03)
[2023-01-06] MEDS: FUROsemide 20 mg Tablet PO (12:04)
[2023-01-06] MEDS: levothyroxine 75 mcg Tablet PO (12:04)
[2023-01-06] MEDS: cetirizine 10 mg Tablet PO (12:04)
[2023-01-06] MEDS: lisinopril 10 mg Tablet PO (12:04)
[2023-01-06] MEDS: lidocaine 5% Patch 1 PATCH TRANSDERMA (12:04)
[2023-01-06] MEDS: flu vacc pf 2023-24 (6 mos+) 60 MCG IM (12:07)
[2023-01-06 12:17] LABS: Glucose Point of Care 57 mg/dL (70-110)
[2023-01-06 14:00] VITALS: BP 142/74; PULSE 85; RESP 17; TEMP 36.8; O2SAT 95
[2023-01-06] MEDS: acetaminophen 325 mg Tablet 650 MG PO (14:45)
[2023-01-06] MEDS: nicotine 4 mg lozenge MUCOUS MEM (14:49)
--- NOTE | 2023-01-06 14:58 | PC.NURSE ---
Patient states her right thumb is hurting and that she would like someone to look at it. This nurse visually inspected the patient's thumb and it appears to be bruised and slightly swollen. Patient stated she did not know what happened to her thumb. She was able to flex and extend her thumb. Tylenol 650mg PO was given. Ice was offered, but patient refused.
[2023-01-06] MEDS: paliperidone ER 3 mg Tablet PO (17:48)
[2023-01-06] MEDS: atorvastatin 40 mg Tablet PO (20:20)
[2023-01-06 20:22] VITALS: BP 122/68; PULSE 82; RESP 14; TEMP 37.2; O2SAT 94
[2023-01-06 20:42] LABS: Glucose Point of Care 212 mg/dL (70-110)
[2023-01-07 06:00] VITALS: BP 120/77; PULSE 71; RESP 15; TEMP 36.8; O2SAT 94
[2023-01-07] MEDS: levothyroxine 75 mcg Tablet PO (06:31)
[2023-01-07 06:38] LABS: Glucose Point of Care 123 mg/dL (70-110)
[2023-01-07] MEDS: paliperidone ER 3 mg Tablet PO (08:29)
[2023-01-07] MEDS: cetirizine 10 mg Tablet PO (08:29)
[2023-01-07] MEDS: FUROsemide 20 mg Tablet PO (08:29)
[2023-01-07] MEDS: estradiol 1 mg Tablet PO (08:29)
[2023-01-07] MEDS: venlafaxine ER (24HR) 150 mg Capsule PO (08:29)
[2023-01-07] MEDS: lisinopril 10 mg Tablet PO (08:29)
[2023-01-07] MEDS: pantoprazole DR 40 mg Tablet PO (08:29)
[2023-01-07] MEDS: aspirin 81 mg EC Tablet PO (08:30)
[2023-01-07] MEDS: nicotine 4 mg lozenge MUCOUS MEM ×4 (08:31→21:23)
[2023-01-07] MEDS: lidocaine 5% Patch 1 PATCH TRANSDERMA (08:47)
[2023-01-07 09:33] VITALS: PULSE 71; RESP 16; O2SAT 94
--- NOTE | 2023-01-07 11:10 | W.PM.NPUPNS ---
Subjective NPU Subjective: Patient presented today reporting that she is feeling a little bit better. She reports that she tolerated the Invega and denies any side effects at this time. She feels overall that it is helping. We discussed possibly increasing it to 6 mg tomorrow after a discussion of the risks, benefits and alternatives she understood and agreed to proceed as is documented in this note. We discussed her working with her nurse on her prehospitalization medications that she reports there is some erythromycin and some different medications that she does not feel got restarted. We agreed we work on that today. Additionally she discussed and showed bruising on her thumb that she reports happened when she got combative and reports that she is having some pain in that thumb. We discussed whether we might need to x-ray or just treat for moderate pain. Mental Status Exam MSE Comments: This is an obese, white female, in hospital scrubs, with limited grooming and adequate eye contact. No abnormal movements, except for mild psychomotor retardation. Cooperative with exam in mild distress. Speech was normal rate and volume, with some speech impediment. Mood described as okay; affect slightly subdued. Thought process, organized. Thought content: patient denied any suicidal or homicidal ideation, there were no delusions reported or noted, patient denied any auditory or visual hallucinations. Attention, concentration, and memory appeared intact, but none were formally tested. Alert and oriented times three. Insight and judgment are fair. Impulse control is limited. Vitals/I&O/Wt Last Vital Signs Temp 98.3 F 01/07/23 06:00 Pulse 71 01/07/23 09:33 Resp 16 01/07/23 09:33 BP 120/77 01/07/23 06:00 Pulse Ox 94 01/07/23 09:33 O2 Del Method Room Air 01/07/23 09:33 Weight last 48 hrs Weight 97.069 kg Weight 99.79 kg Data NPU 01/05/23 16:40 01/05/23 16:40 A&P Assessment and plan (1) Suicidal ideation: (2) Auditory hallucinations: (3) Hallucination, visual: (4) Tactile hallucination: (5) Diabetes mellitus type 1, uncontrolled, insulin dependent: (6) Post-traumatic stress disorder, chronic: (7) History of schizoaffective disorder: Plan This is a 47-year-old, white female, with a long history of mental health issues and treatment, and several medication trials which she reports were ineffective, with a history of schizoaffective disorder diagnosis and emotional dysregulation, who presents reporting an interest in another medication as things have gotten really bad again. 1. Started Invega 3 mg today, with plan for considering dose of 6 mg tomorrow after seeing how she feels with that. 2. Encourage individual, group, and milieu therapy. 3. Continue q-15-minute checks for safety. Involuntary Hold Information 96 Hour Hold: 96 Hour Involuntary Admission: Yes 96 Hour Hold Ending Date: 01/11/23 96 Hour Hold Ending Time: 00:01 Attestations NPU Medical Necessity Statement*: Inpatient hospitalization is medically necessary and the clinically appropriate intervention at this time. We will monitor medications and make changes as indicated. Likely length of stay 3 to 5 days. Coding Level of Care Code Acute Code for g Fwd Diagnoses Suicidal ideation R45.851 Auditory hallucinations R44.0 Hallucination, visual R44.1 Tactile hallucination R44.2 Diabetes mellitus type 1, uncontrolled, insulin dependent E10.65 Post-traumatic stress disorder, chronic F43.12 History of schizoaffective disorder Z86.59
[2023-01-07 11:44] LABS: Glucose Point of Care 121 mg/dL (70-110)
[2023-01-07 14:00] VITALS: BP 139/78; PULSE 94; RESP 16; TEMP 36.7; O2SAT 96
[2023-01-07 17:17] LABS: Glucose Point of Care 91 mg/dL (70-110)
[2023-01-07 17:56] LABS: Glucose Point of Care 55 mg/dL (70-110)
[2023-01-07 18:16] LABS: Glucose Point of Care 99 mg/dL (70-110)
--- NOTE | 2023-01-07 18:36 | PC.NURSE ---
pt came and requested to have her blood sugar tested because her dexcom said it was 49. when tested our glucometer showed that her sugar was 55. pt was given apple juice, crackers, and peanut butter. pt blood sugar was retested after 15 minutes and showed that it was 99.
[2023-01-07 19:49] VITALS: BP 138/84; PULSE 103; RESP 16; TEMP 36.9; O2SAT 95
[2023-01-07 19:56] LABS: Glucose Point of Care 278 mg/dL (70-110)
[2023-01-07] MEDS: atorvastatin 40 mg Tablet PO (20:16)
[2023-01-07 21:16] LABS: Glucose Point of Care 299 mg/dL (70-110)
[2023-01-07] MEDS: trazodone 50 mg Tablet PO (21:35)
[2023-01-07 23:05] LABS: Glucose Point of Care 66 mg/dL (70-110)
--- NOTE | 2023-01-07 23:07 | PC.NURSE ---
Pt has one to one sitter in room, stating pt wants to leave room to go to the day room and that her dexicom is reading 51. CBG checked w/a result of 66. Pt is not exhibiting diaphoresis, tremors, or change in LOC. Pt provided sandwich for carbohydrate to raise glucose level. Dr. Fox notified of change in condition and measures taken. NO received and noted to call physician back if patient remains hypoglycemic.
[2023-01-07 23:43] LABS: Glucose Point of Care 64 mg/dL (70-110)
[2023-01-08 00:08] LABS: Glucose Point of Care 149 mg/dL (70-110)
[2023-01-08] MEDS: trazodone 50 mg Tablet PO (00:14)
[2023-01-08 06:00] VITALS: BP 124/83; PULSE 85; RESP 16; O2SAT 92
[2023-01-08] MEDS: levothyroxine 75 mcg Tablet PO (06:24)
[2023-01-08 06:58] LABS: Glucose Point of Care 140 mg/dL (70-110)
[2023-01-08] MEDS: nicotine 4 mg lozenge MUCOUS MEM ×6 (07:35→21:47)
[2023-01-08] MEDS: aspirin 81 mg EC Tablet PO (07:35)
[2023-01-08] MEDS: paliperidone ER 3 mg Tablet PO ×2 (07:36→10:47)
[2023-01-08] MEDS: pantoprazole DR 40 mg Tablet PO (07:36)
[2023-01-08] MEDS: venlafaxine ER (24HR) 150 mg Capsule PO (07:36)
[2023-01-08] MEDS: lisinopril 10 mg Tablet PO (07:36)
[2023-01-08] MEDS: FUROsemide 20 mg Tablet PO (07:36)
[2023-01-08] MEDS: cetirizine 10 mg Tablet PO (07:36)
[2023-01-08] MEDS: estradiol 1 mg Tablet PO (07:36)
[2023-01-08] MEDS: lidocaine 5% Patch 1 PATCH TRANSDERMA (07:37)
[2023-01-08] MEDS: naproxen 500 mg Tablet PO (07:49)
[2023-01-08 07:52] LABS: Glucose Point of Care 183 mg/dL (70-110)
[2023-01-08 08:00] VITALS: PULSE 107; RESP 16; O2SAT 96
[2023-01-08] MEDS: albuterol 2.5 mg/3 mL Neb INHALATION ×2 (08:13→16:11)
[2023-01-08] MEDS: budesonide 0.5 mg/2 mL Neb INHALATION (08:13)
--- NOTE | 2023-01-08 10:34 | XRR_ITS ---
PROCEDURE INFORMATION: Exam: XR Right Finger(s) Exam date and time: 01/08/2023 10:48 AM Age: 47 years old Clinical indication: Pain; Finger(s); Right; Additional info: Right thumb bruised and swollen/complaint of pain TECHNIQUE: Imaging protocol: Radiologic exam of the right fingers. Views: Minimum 2 views. COMPARISON: 1. CR XR wrist RT min 3V* [id number] 06/05/2021 10:56 AM 2. CR XR hand RT min 3V* [id number] 10/05/2019 2:36 PM FINDINGS: Bones/joints: Minimally distracted thumb proximal phalanx radial base fracture. Mineralization is normal. Stable ulnar negative variance. Joint spacing and alignment are otherwise maintained. Soft tissues: Thumb soft tissue swelling. XR/XR finger RT min 2V [id number] IMPRESSION: Minimally distracted right thumb proximal phalanx base fracture, radial aspect.
--- NOTE | 2023-01-08 10:54 | W.PM.NPUPNS ---
Subjective NPU Subjective: Patient presented today reporting that she is doing okay. She denied any problems with the Invega and we discussed still the possibility of increasing the dose to 6 mg today. Additionally we got a three-view of her injured thumb area and agreed we would get additional expertise if there was a positive finding. She reports she is doing a little better and we discussed her working with the social work team on follow-up after discharge. Mental Status Exam MSE Comments: This is an obese, white female, in hospital scrubs, with limited grooming and adequate eye contact. No abnormal movements, except for mild psychomotor retardation. Cooperative with exam in mild distress. Speech was normal rate and volume, with some speech impediment. Mood described as okay; affect slightly subdued. Thought process, organized. Thought content: patient denied any suicidal or homicidal ideation, there were no delusions reported or noted, patient denied any auditory or visual hallucinations. Attention, concentration, and memory appeared intact, but none were formally tested. Alert and oriented times three. Insight and judgment are fair. Impulse control is limited. Vitals/I&O/Wt Last Vital Signs Temp 98.5 F 01/07/23 19:49 Pulse 107 H 01/08/23 08:00 Resp 16 01/08/23 08:00 BP 124/83 01/08/23 06:00 Pulse Ox 96 01/08/23 08:00 O2 Del Method Room Air 01/08/23 08:00 Data NPU 01/05/23 16:40 01/05/23 16:40 A&P Assessment and plan (1) Suicidal ideation: (2) Auditory hallucinations: (3) Hallucination, visual: (4) Tactile hallucination: (5) Diabetes mellitus type 1, uncontrolled, insulin dependent: (6) Post-traumatic stress disorder, chronic: (7) History of schizoaffective disorder: Plan This is a 47-year-old, white female, with a long history of mental health issues and treatment, and several medication trials which she reports were ineffective, with a history of schizoaffective disorder diagnosis and emotional dysregulation, who presents reporting an interest in another medication as things have gotten really bad again. 1. Started Invega 3 mg today, with plan for considering dose of 6 mg tomorrow after seeing how she feels with that. 2. Encourage individual, group, and milieu therapy. 3. Continue q-15-minute checks for safety. 4. Continued complaints about pain in area of thumb we will get three-view x-ray of thumb and get hospitalist consult with positive finding. Involuntary Hold Information 96 Hour Hold: 96 Hour Involuntary Admission: Yes 96 Hour Hold Ending Date: 01/11/23 96 Hour Hold Ending Time: 00:01 Attestations NPU Medical Necessity Statement*: Inpatient hospitalization is medically necessary and the clinically appropriate intervention at this time. We will monitor medications and make changes as indicated. Likely length of stay 2-4 days. Coding Level of Care Code Acute Code for Chg Fwd Diagnoses Suicidal ideation R45.851 Auditory hallucinations R44.0 Hallucination, visual R44.1 Tactile hallucination R44.2 Diabetes mellitus type 1, uncontrolled, insulin dependent E10.65 Post-traumatic stress disorder, chronic F43.12 History of schizoaffective disorder Z86.59
[2023-01-08 11:14] LABS: Glucose Point of Care 64 mg/dL (70-110)
[2023-01-08 14:00] VITALS: BP 122/71; PULSE 96; RESP 16; TEMP 36.8; O2SAT 94
[2023-01-08 16:00] VITALS: PULSE 109; RESP 16; O2SAT 96
[2023-01-08] MEDS: PRUCALOPRIDE 2 MG PO (16:01)
[2023-01-08 16:15] LABS: Glucose Point of Care 161 mg/dL (70-110)
--- NOTE | 2023-01-08 16:45 | PC.NURSE ---
Left message with ortho for a consultation, per Dr. Dubose and Dr. Fox for fractured right thumb. Awaiting callback.
--- NOTE | 2023-01-08 17:06 | PC.NURSE ---
CALLED [facility] @ [phone], SPOKE TO PHARMACIST TO CLARIFY OXYCODONE, STATED PATIENT LAST FILLED PRESCRIPTION 12/10/22, 30 DAY SUPPLY BUT PATIENT HAS NO MORE REFILLS. INFO RELAYED TO DR. MENDEZ. AT THIS TIME DR. MENDEZ STATED HE WILL NOT BE CONTINUING HER OXYCODONE TODAY
--- NOTE | 2023-01-08 19:37 | PM.CONSULT ---
Providers/Reason For Consult Consulting Physician/Specialty*: Dr Fox, psychiatry Reason for Consult*: Hypoglycemia Attending Physician: Joe Fxo MD Primary Care Provider: Navid Alegria MD History of Present Illness History of Present Illness Josi Caraballo is a 47 year old female admitted on neuropsychiatric unit has been having pain, bruising swelling of the base of the right thumb, psychiatry will contact orthopedics, however, noted to have episodes of hypoglycemia, glucose dipping down to 60s. She manages her DM1 with insulin pump, follows normally with Dr. Zhang in [place]. She denies any changes in her appetite. Has not had any vomiting or diarrhea. Reports she had discussed previously with her retail link analyst who told her that she may benefit from decreasing direct basal infusion from midnight to 5 AM. Review of Systems Const: Denies: fever(s), chills, body aches or malaise ENMT: Denies: throat pain Card: Denies: chest pain Resp: Denies: dyspnea or productive cough GI: Denies: abdominal pain, nausea, vomiting or diarrhea : Denies: flank pain, urinary frequency or hematuria Neuro: Denies: headache(s) or confusion Medications/Allergies Home Medications Medication Instructions Recorded Confirmed Last Taken Type insulin aspart U-100 100 unit/mL See Rx Instructions .Route .COMPLEX 04/10/19 01/05/23 01/05/23 21:54 History subcutaneous cartridge (Novolog PenFill U-100 Insulin aspart) aspirin 81 mg tablet,delayed 81 mg PO DAILY 02/08/22 01/05/23 01/05/23 08:00 History release cetirizine 10 mg tablet 10 mg PO DAILY 02/08/22 01/05/23 01/05/23 08:00 History dexlansoprazole 60 mg 60 mg PO DAILY 02/08/22 01/05/23 01/05/23 08:00 History capsule,biphase delayed release (Dexilant) estradiol 1 mg tablet 1 mg PO DAILY 02/08/22 01/05/23 03/27/22 History furosemide 20 mg tablet 20 mg PO DAILY 02/08/22 01/05/23 01/05/23 08:00 History lactulose 10 gram/15 mL oral 10 g PO DAILY PRN Constipation 02/08/22 01/05/23 Unknown History solution lisinopril 10 mg tablet 10 mg PO DAILY 02/08/22 01/05/23 01/05/23 08:00 History prucalopride 2 mg tablet 2 mg PO DAILY 02/08/22 01/05/23 01/05/23 08:00 History (Motegrity) tizanidine 4 mg tablet 4 mg PO Q8H PRN Muscle Pain 02/08/22 01/05/23 Unknown History atorvastatin 40 mg tablet 40 mg PO BEDTIME 02/12/22 01/05/23 01/04/23 20:00 History oxycodone 10 mg tablet 10 mg PO TID PRN Pain 02/12/22 01/05/23 02/12/22 History naproxen sodium 550 mg tablet 550 mg PO Q12H PRN pain #60 tabs 03/01/22 01/05/23 Unknown Rx budesonide-formoterol HFA 160 2 puff inhalation 2XD 01/05/23 01/05/23 01/05/23 08:00 History mcg-4.5 mcg/actuation aerosol inhaler (Symbicort) levothyroxine 75 mcg tablet 75 mcg PO DAILY Thyroid 01/05/23 01/05/23 01/05/23 08:00 History lidocaine 5 % topical patch 1 patch transdermal DAILY 01/05/23 01/05/23 Unknown History trazodone 50 mg tablet See Rx Instructions .Route 01/05/23 01/05/23 Unknown History .COMPLEX PRN Insomnia venlafaxine 150 mg 150 mg PO DAILY 01/05/23 01/05/23 01/05/23 08:00 History capsule,extended release 24 hr meloxicam 15 mg tablet 15 mg PO PRN PRN Pain 01/07/23 01/07/23 Unknown History trazodone 50 mg tablet 100 mg PO BEDTIME 01/07/23 01/07/23 Unknown History Allergies Allergy/AdvReac Type Severity Reaction Status Date / Time Sulfa (Sulfonamide Allergy ALGY-Rash Verified 01/05/23 22:06 Antibiotics) STERIODS AdvReac Mild CAUSES Uncoded 01/05/23 22:06 HIGH BLOOD SUGARS. can use small doses Current Medications Generic Name Dose Route Start Last Admin Trade Name Freq PRN Reason Stop Dose Admin Acetaminophen 650 mg 01/05/23 20:50 01/06/23 14:45 Acetaminophen 325 Mg Tablet PO 650 mg Q4H PRN Administration MILD PAIN Albuterol Sulfate 2.5 mg 01/06/23 08:00 01/08/23 16:11 Albuterol 2.5 Mg/3 Ml Neb INHALATION 2.5 mg QID.RESPIRATORY LUCI Administration Aspirin 81 mg 01/06/23 09:00 01/08/23 07:35 Aspirin 81 Mg Ec Tablet PO 81 mg DAILY LUCI Administration Atorvastatin Calcium 40 mg 01/06/23 21:00 01/07/23 20:16 Atorvastatin 40 Mg Tablet PO 40 mg BEDTIME LUCI Administration Budesonide 0.5 mg 01/06/23 08:00 01/08/23 08:13 Budesonide 0.5 Mg/2 Ml Neb INHALATION 0.5 mg BID.RESPIRATORY LUCI Administration Cetirizine HCl 10 mg 01/06/23 09:00 01/08/23 07:36 Cetirizine 10 Mg Tablet PO 10 mg DAILY LUCI Administration Estradiol 1 mg 01/06/23 09:00 01/08/23 07:36 Estradiol 1 Mg Tablet PO 1 mg DAILY LUCI Administration Furosemide 20 mg 01/06/23 09:00 01/08/23 07:36 Furosemide 20 Mg Tablet PO 20 mg DAILY LUCI Administration Levothyroxine Sodium 75 mcg 01/07/23 06:30 01/08/23 06:24 Levothyroxine 75 Mcg Tablet PO 75 mcg QAM LUCI Administration Lidocaine 1 patch 01/06/23 09:00 01/08/23 07:37 Lidocaine 5% Patch TRANSDERMA 1 patch DAILY LUCI Administration Lisinopril 10 mg 01/06/23 09:00 01/08/23 07:36 Lisinopril 10 Mg Tablet PO 10 mg DAILY LUCI Administration Naproxen 500 mg 01/05/23 22:15 01/08/23 07:49 Naproxen 500 Mg Tablet PO 500 mg Q12H PRN Administration PAIN Nicotine Polacrilex 4 mg 01/05/23 21:35 01/08/23 16:02 Nicotine 4 Mg Lozenge MUCOUS MEM 4 mg Q2H PRN Administration NICOTINE CRAVINGS Non-Formulary Medication 0 mg 01/08/23 16:00 01/08/23 16:01 Prucalopride [Motegrity] PO 2 mg DAILY LUCI Administration Pantoprazole Sodium 40 mg 01/06/23 09:00 01/08/23 07:[address] 40 Mg Tablet PO 40 mg DAILY LUCI Administration Trazodone HCl 50 mg 01/05/23 20:50 01/08/23 00:14 Trazodone 50 Mg Tablet PO 50 mg BEDTIME PRN Administration SLEEP Venlafaxine HCl 150 mg 01/06/23 09:00 01/08/23 07:36 Venlafaxine Er (24hr) 150 Mg Capsule PO 150 mg DAILY LUCI Administration PFSH Acute PFSH: Medical History Anxiety Bulging lumbar disc Chronic constipation DDD (degenerative disc disease) Diabetes mellitus type 1- pump Essential (primary) hypertension GERD (gastroesophageal reflux disease) High risk medication use Hyperlipidemia Immunization counseling Immunization counseling Insomnia Leukocytosis Neuropathy Nicotine addiction Onychodystrophy PAD (peripheral artery disease) Psychiatric care Removal of other organ (partial) (total) as the cause of abnormal reaction of the patient, or of later complication, without mention of misadventure at the time of the procedure partial removal of spleen and pancreace 2005 performed in [place] S/P angiogram of extremity Seronegative rheumatoid arthritis Seronegative rheumatoid arthritis of both hands Sleep disorder Spinal stenosis Thoracic disc disease Visual snow syndrome Surgical History H/O gastric sleeve 12/20/20 in [facility] History of dental surgery History of esophagogastroduodenoscopy (EGD) S/P section S/P cholecystectomy S/P tubal ligation 1996 Family History Mother Diabetes Hypertension Grandfather Diabetes Maternal Grandmother Diabetes Maternal Father Heart disease Hypertension Family/Other Breast cancer Maternal Aunt and Paternal Aunts Sister Uterine cancer Other Hypercholesterolemia Vitals/I&O/Wt Last Vital Signs Temp 98.3 F 01/08/23 14:00 Pulse 109 H 01/08/23 16:00 Resp 16 01/08/23 16:00 BP 122/71 01/08/23 14:00 Pulse Ox 96 01/08/23 16:00 O2 Del Method Room Air 01/08/23 16:00 Physical Exam Narrative: Sitting up in the day room watching TV. Const: COMMON NORMALS: patient oriented x3 and alert GENERAL APPEARANCE: cooperative ORIENTATION/CONSCIOUSNESS: Yes awake HENMT: COMMON NORMALS: oropharynx normal Neck/C-Spine: COMMON NORMALS: no JVD Resp: COMMON NORMALS: normal respiratory effort and clear to auscultation bilaterally AUSCULTATION: clear to auscultation bilaterally Cardio: COMMON NORMALS: no JVD, regular rhythm, S1 normal heart sound present, S2 normal heart sound present and No murmurs present (Cardio) RHYTHM: regular rhythm HEART SOUNDS: S1 normal heart sound present and S2 normal heart sound present Extremity: OTHER: R hand minimal swelling around the thumb. Neuro: COMMON NORMALS: patient oriented x3 and moves all extremities SENSORIUM/ORIENTATION: Yes alert Data 01/05/23 16:40 01/05/23 16:40 A&P Assessment and plan (1) Hypoglycemia: She appears to be quite adept at managing and assessing her pump. She is agreeable to adjust insulin regimen with decreasing basal infusion, he is reluctant to make any changes at once, she would like to start decreasing the basal rate between midnight and 5 AM, decreased from 7 units/h to 6.5 units/h. Continue monitoring Accu-Cheks. Blood glucose at 11 AM this morning 64, repeat 161. She states her oral intake has been unchanged. Reviewed Accu-Cheks. We will reassess glucose. Follow-up. We may need to further adjust morning infusion rates as well as she did appear to have some lows in the afternoon yesterday and later around 11 PM. Consistent carbohydrate diet. With hypoglycemia at risk of neurologic injury, stroke. Requires further monitoring and adjustment of insulin therapy. With DM1, risk of hyperglycemia, DKA with inadequate insulin. Discussed with psychiatry. (2) Thumb fracture: Reviewed R thumb x-ray. Fracture of right thumb proximal phalanx base at radial aspect. Psychiatry getting in touch with orthopedics. Plan Psychiatric condition: Reviewed psychiatry note. Continue management on neuropsychiatric unit. Consult Attestations Medical Necessity Statement: Continue admission for assessment management of psychiatric conditions. Optimization of diabetes control, insulin adjustment with noted hypoglycemia. Diagnoses Hypoglycemia E16.2 Thumb fracture F89.927Q
[2023-01-08] MEDS: atorvastatin 40 mg Tablet PO (20:05)
[2023-01-08] MEDS: trazodone 100 mg Tablet PO (20:15)
[2023-01-08 21:05] VITALS: BP 117/70; PULSE 92; RESP 18; TEMP 36.6; O2SAT 98
[2023-01-08 21:49] LABS: Glucose Point of Care 135 mg/dL (70-110)
[2023-01-09] MEDS: levothyroxine 75 mcg Tablet PO (05:21)
[2023-01-09 06:00] VITALS: BP 90/60; PULSE 91; RESP 15; TEMP 36.7; O2SAT 94
[2023-01-09] MEDS: nicotine 4 mg lozenge MUCOUS MEM ×7 (07:45→20:33)
[2023-01-09] MEDS: budesonide 0.5 mg/2 mL Neb INHALATION ×2 (07:59→20:21)
[2023-01-09] MEDS: albuterol 2.5 mg/3 mL Neb INHALATION ×2 (07:59→20:21)
[2023-01-09 08:00] VITALS: PULSE 97; RESP 18; O2SAT 98
[2023-01-09 08:16] LABS: Glucose Point of Care 112 mg/dL (70-110)
[2023-01-09] MEDS: lisinopril 10 mg Tablet PO (08:41)
[2023-01-09] MEDS: aspirin 81 mg EC Tablet PO (08:41)
[2023-01-09] MEDS: estradiol 1 mg Tablet PO (08:41)
[2023-01-09] MEDS: paliperidone ER 6 mg Tablet PO (08:41)
[2023-01-09] MEDS: PRUCALOPRIDE 2 MG PO (08:41)
[2023-01-09] MEDS: cetirizine 10 mg Tablet PO (08:41)
[2023-01-09] MEDS: FUROsemide 20 mg Tablet PO (08:41)
[2023-01-09] MEDS: pantoprazole DR 40 mg Tablet PO (08:41)
[2023-01-09] MEDS: venlafaxine ER (24HR) 150 mg Capsule PO (08:41)
[2023-01-09] MEDS: lidocaine 5% Patch 1 PATCH TRANSDERMA (08:42)
[2023-01-09] MEDS: naproxen 500 mg Tablet PO (08:56)
--- NOTE | 2023-01-09 09:38 | PC.NURSE ---
935 AM Orders received from Dr. Todd to pull insulin pump AND REMOVE ONE ON ONE SITTER. ORDERS PLACED IN [facility]. THIS RN WENT TO ROOM AND INSULIN PUMP WAS REMOVED WITH SMALL CATHLON INTACT. TUBING WAS DISCARDED AND AREA CLEANSED. EDUCATION PROVIDED TO PT ON NEW INSULIN ORDERS. PT VERBALIZED UNDERSTANDING.
--- NOTE | 2023-01-09 09:46 | PC.NURSE ---
INSULIN PUMP PLACED IN MEDICATION HOME BAG AND PLACED PIXIS UNTIL PT IS DISCHARGED.
[2023-01-09] MEDS: hyDROXYzine 25 mg Capsule 50 MG PO (10:00)
[2023-01-09] MEDS: insulin glargine 100 units/1 mL 17 UNIT SUBCUT (10:01)
[2023-01-09 11:29] LABS: Glucose Point of Care 182 mg/dL (70-110)
[2023-01-09] MEDS: insulin lispro 100 unit/1 mL SUBCUT (11:37)
[2023-01-09 13:25] LABS: Glucose Point of Care 325 mg/dL (70-110)
--- NOTE | 2023-01-09 13:46 | W.PM.NPUPNS ---
Subjective NPU Subjective: Patient presented today reporting things are going better overall. We discussed the risks, benefits and alternatives of increasing the Invega to 6 mg p.o. daily and she understood and agreed to proceed as is documented in this note. We also discussed her overall improvement and the likelihood of discharge in the morning. Mental Status Exam MSE Comments: This is an obese, white female, in hospital scrubs, with limited grooming and adequate eye contact. No abnormal movements, except for mild psychomotor retardation. Cooperative with exam in mild distress. Speech was normal rate and volume, with some speech impediment. Mood described as okay; affect slightly subdued. Thought process, organized. Thought content: patient denied any suicidal or homicidal ideation, there were no delusions reported or noted, patient denied any auditory or visual hallucinations. Attention, concentration, and memory appeared intact, but none were formally tested. Alert and oriented times three. Insight and judgment are fair. Impulse control is limited. Vitals/I&O/Wt Last Vital Signs Temp 98.1 F 01/09/23 06:00 Pulse 97 01/09/23 08:00 Resp 18 01/09/23 08:00 BP 90/60 01/09/23 06:00 Pulse Ox 98 01/09/23 08:00 O2 Del Method Room Air 01/09/23 08:00 Data NPU 01/05/23 16:40 01/05/23 16:40 A&P Assessment and plan (1) Suicidal ideation: (2) Auditory hallucinations: (3) Hallucination, visual: (4) Tactile hallucination: (5) Diabetes mellitus type 1, uncontrolled, insulin dependent: (6) Post-traumatic stress disorder, chronic: (7) History of schizoaffective disorder: Plan This is a 47-year-old, white female, with a long history of mental health issues and treatment, and several medication trials which she reports were ineffective, with a history of schizoaffective disorder diagnosis and emotional dysregulation, who presents reporting an interest in another medication as things have gotten really bad again. 1. Started Invega 3 mg, increase to 6 mg p.o. daily. 2. Encourage individual, group, and milieu therapy. 3. Continue q-15-minute checks for safety. 4. Contacted orthopedic doctor about positive x-ray on thumb. Hospitalist consult on insulin pump and fluctuating blood sugars obtained. We will follow recommendations as indicated. Involuntary Hold Information 96 Hour Hold: 96 Hour Involuntary Admission: Yes 96 Hour Hold Ending Date: 01/11/23 96 Hour Hold Ending Time: 00:01 Attestations NPU Medical Necessity Statement*: Inpatient hospitalization is medically necessary and the clinically appropriate intervention at this time. We will monitor medications and make changes as indicated. Likely length of stay 1-3 days. Coding Level of Care Code Acute Code for g Fwd Diagnoses Suicidal ideation R45.851 Auditory hallucinations R44.0 Hallucination, visual R44.1 Tactile hallucination R44.2 Diabetes mellitus type 1, uncontrolled, insulin dependent E10.65 Post-traumatic stress disorder, chronic F43.12 History of schizoaffective disorder Z86.59
--- NOTE | 2023-01-09 13:50 | PC.NURSE ---
PT PLACED BACK ON A ONE ON ONE DUE TO CHARGE NURSE RECEIVING ORDERS TO RE-INSERT INSULIN PUMP. INSULIN PUMP HAS LONG CORD/TUBING PRESENT. SITTER PLACED TO ENSURE PT SAFETY. MINUTE CHECKS CONTINUE. PT NOTIFIED OF NEW ORDERS AND INTRODUCED TO SITTER. ALL QUESTIONS ANSWERED AND SUPPORT WAS VOICED.
[2023-01-09 14:00] VITALS: BP 146/66; PULSE 111; RESP 18; TEMP 36.9; O2SAT 95
[2023-01-09 14:09] LABS: Glucose Point of Care 388 mg/dL (70-110)
[2023-01-09 14:32] LABS: Glucose Point of Care 326 mg/dL (70-110)
--- NOTE | 2023-01-09 17:26 | P.PN_ITS ---
Subjective Subjective: Has had some difficulty estimating carbs, requested more information regarding carbs on her meals. Ran out of insulin, discussed with her transition to subcutaneous insulin, received Lantus this morning. However, she states that her life partner had brought in additional insulin for her and supplies. Requests to resume insulin pump. She states that without being able to manage her insulin she feels more anxious, and feels that her glucose will get more out of control and feels she does not want diabetes to get the better of her. Discussed with nursing staff to confirm with psychiatrist whether she may be able to resume insulin pump while she is at NPU. Adjustment of insulin pump rates may also help avoid hypoglycemia once the pump is resumed presumably at discharge. Discussed with her if not possible we may continue with subcutaneous insulin injections. Vitals/I&O/Wt Last Vital Signs Temp 98.4 F 01/09/23 14:00 Pulse 111 H 01/09/23 14:00 Resp 18 01/09/23 14:00 BP 146/66 01/09/23 14:00 Pulse Ox 95 01/09/23 14:00 O2 Del Method Room Air 01/09/23 08:00 Physical Exam Narrative: Sitting up in the day room watching TV. Const: COMMON NORMALS: patient oriented x3 and alert GENERAL APPEARANCE: cooperative ORIENTATION/CONSCIOUSNESS: Yes awake HENMT: COMMON NORMALS: oropharynx normal Neck/C-Spine: COMMON NORMALS: no JVD Resp: COMMON NORMALS: normal respiratory effort and clear to auscultation bilaterally AUSCULTATION: clear to auscultation bilaterally Cardio: COMMON NORMALS: no JVD, regular rhythm, S1 normal heart sound present, S2 normal heart sound present and No murmurs present (Cardio) RHYTHM: regular rhythm HEART SOUNDS: S1 normal heart sound present and S2 normal heart sound present Extremity: OTHER: R hand minimal swelling around the thumb. Neuro: COMMON NORMALS: patient oriented x3 and moves all extremities SENSORIUM/ORIENTATION: Yes alert Data 01/05/23 16:40 01/05/23 16:40 A&P Assessment and plan (1) Hypoglycemia: Hypoglycemia has improved, her, this morning she had run out of insulin in her pump. Had to be discontinued. Noted average daily insulin 47 units. With dose reduction converted to 17 units lantus which she received this morning. Wong bsequently her insulin and supplies have been brought over by her life partner and she feels for multiple reasons that she would do worse without her pump. With nursing staff we will confirm with psychiatry regarding possibility of refilling and restarting her pump. Discussed with both her and nursing received basal insulin that she should not have basal infusion going until 9-10 AM tomorrow morning. She states that she has had some difficulty counting carbs here and that her boluses have been likely over correcting her glucose as at home she usually has easier time chronic carbs. Discussed with staff to see if information can be obtained and provided for her regarding carbohydrates, additionally discussed with her with counting carbs she states she will estimate lower as well as not to overcorrect with insulin. Continue accuchecks. With hypoglycemia at risk of neurologic injury, stroke. Requires further monitoring and adjustment of insulin therapy. With DM1, risk of hyperglycemia, DKA with inadequate insulin. Reviewed psychiatry note. Discussed w psychiatry. (2) Thumb fracture: Reviewed R thumb x-ray. Fracture of right thumb proximal phalanx base at radial aspect. Psychiatry getting in touch with orthopedics. Plan Psychiatric condition: Reviewed psychiatry note. Continue management on neuro psychiatric unit. Attestations Medical Necessity Statement*: Continue admission for assessment management of psychiatric conditions.? Optimization of diabetes control, insulin adjustment with noted hypoglycemia. Diagnoses Hypoglycemia E16.2 Thumb fracture S62.509A
[2023-01-09 17:30] LABS: Glucose Point of Care 60 mg/dL (70-110)
[2023-01-09 18:34] LABS: Glucose Point of Care 99 mg/dL (70-110)
[2023-01-09 20:21] VITALS: PULSE 114; RESP 18; O2SAT 99
[2023-01-09 20:25] VITALS: PULSE 109
[2023-01-09] MEDS: trazodone 100 mg Tablet PO (20:33)
[2023-01-09] MEDS: atorvastatin 40 mg Tablet PO (20:35)
[2023-01-09 21:04] VITALS: BP 97/57; PULSE 115; RESP 20; TEMP 36.9; O2SAT 95
[2023-01-09 21:11] LABS: Glucose Point of Care 178 mg/dL (70-110)
[2023-01-10] MEDS: levothyroxine 75 mcg Tablet PO (05:31)
[2023-01-10 06:00] VITALS: BP 130/69; PULSE 86; RESP 20; TEMP 36.8; O2SAT 92
[2023-01-10 06:02] LABS: Glucose Point of Care 189 mg/dL (70-110)
[2023-01-10] MEDS: nicotine 4 mg lozenge MUCOUS MEM ×4 (06:27→13:33)
[2023-01-10 08:00] VITALS: PULSE 90; RESP 18; O2SAT 98
[2023-01-10] MEDS: budesonide 0.5 mg/2 mL Neb INHALATION (08:25)
[2023-01-10] MEDS: albuterol 2.5 mg/3 mL Neb INHALATION (08:28)
[2023-01-10] MEDS: PRUCALOPRIDE 2 MG PO (08:37)
[2023-01-10] MEDS: venlafaxine ER (24HR) 150 mg Capsule PO (08:37)
[2023-01-10] MEDS: estradiol 1 mg Tablet PO (08:37)
[2023-01-10] MEDS: pantoprazole DR 40 mg Tablet PO (08:37)
[2023-01-10] MEDS: FUROsemide 20 mg Tablet PO (08:37)
[2023-01-10] MEDS: cetirizine 10 mg Tablet PO (08:37)
[2023-01-10] MEDS: aspirin 81 mg EC Tablet PO (08:37)
[2023-01-10] MEDS: lisinopril 10 mg Tablet PO (08:37)
[2023-01-10] MEDS: paliperidone ER 6 mg Tablet PO (08:37)
[2023-01-10] MEDS: lidocaine 5% Patch 1 PATCH TRANSDERMA (08:41)
[2023-01-10] MEDS: naproxen 500 mg Tablet PO (08:47)
--- NOTE | 2023-01-10 09:33 | PC.NURSE ---
During morning assessment, patient stated that she felt better than she did yesterday. Patient appears to be in good spirits. Patient in group with sitter, no distress observed
[2023-01-10 10:08] LABS: Glucose Point of Care 155 mg/dL (70-110)
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
[2023-01-10 11:25] LABS: Glucose Point of Care 63 mg/dL (70-110)
[2023-01-10 11:44] VITALS: PULSE 90; RESP 18; O2SAT 98
--- NOTE | 2023-01-10 12:06 | P.PN_ITS ---
Subjective Subjective: Blood glucose 63 at 1120 this morning. Came to see her shortly after. She states that she is feeling somewhat irritable, symptomatic due to low glucose. Vitals/I&O/Wt Last Vital Signs Temp 98.3 F 01/10/23 06:00 Pulse 90 01/10/23 11:44 Resp 18 01/10/23 11:44 BP 130/69 01/10/23 06:00 Pulse Ox 98 01/10/23 11:44 O2 Del Method Room Air 01/10/23 08:00 Physical Exam Narrative: Ambulating in the hallway. Const: COMMON NORMALS: patient oriented x3 and alert GENERAL APPEARANCE: cooperative ORIENTATION/CONSCIOUSNESS: Yes awake HENMT: COMMON NORMALS: oropharynx normal Neck/C-Spine: COMMON NORMALS: no JVD Resp: COMMON NORMALS: normal respiratory effort and clear to auscultation bilaterally AUSCULTATION: clear to auscultation bilaterally Cardio: COMMON NORMALS: no JVD, regular rhythm, S1 normal heart sound present, S2 normal heart sound present and No murmurs present (Cardio) RHYTHM: regular rhythm HEART SOUNDS: S1 normal heart sound present and S2 normal heart sound present Extremity: OTHER: R hand minimal swelling around the thumb. Neuro: COMMON NORMALS: patient oriented x3 and moves all extremities SENSORIUM/ORIENTATION: Yes alert Data 01/05/23 16:40 01/05/23 16:40 A&P Assessment and plan (1) Hypoglycemia: After adjustment of the nighttime basal infusion rate to 0.65 units/h this morning blood glucose was better. However, in the afternoon again down to 63 at 11:20 AM. She states that she had overestimated the carbs again on her breakfast, gave herself 4 units of insulin. States that she is having difficulty counting carbs here in the hospital compared to at home where she prepares the food. She would not allow me to look at the settings on the pump, and declines making any additional adjustments at this time. Discussed with her risk of hypoglycemia including risk of stroke, seizures, and other complications. She is able to teach back the risks. States that she has managed her diabetes for over 40 years. States that she is discharging home today and will be managing her glucose better there but she is able to count carbs better. She also is going to call her safety investigator/cause analyst this afternoon to further discuss the settings with her team. Discussed with psychiatrist and the team will recheck glucose again to make sure it is improving before she can discharge. I called also her safety investigator/cause analyst who is out of town, however, discussed with the team concerns regarding drops in glucose into 60s, at one point to 55 and she tells me A1c is 6 indicating that likely she has low blood glucose at other times preceding this admission. Last A1c available here reviewed, was 6 in Mar 2021 confirming her statesments. They are going to be reaching out to her with coding educator. Discussed with her to target glucose and A1c of 7-8 to avoid complications associated with hypoglycemia in spite of what ADA recommendation might be. She will let us know if she changes her mind and allows me to make adjustments to her pump. Discussed again risk of hypoglycemia which may be sudden and unpredictable, may occur while asleep or alone and is imperative to avoid any episodes that may require rescue with sugary snacks, etc before they occur. She states she understands, and that she is also never alone with her life partner by her side at all times. Discussed with psychiatry. Reviewed psychiatry note. (2) Thumb fracture: Fracture of right thumb proximal phalanx base at radial aspect. Psychiatry getting in touch with orthopedics prior to DC. Plan Psychiatric condition: Anticipated discharge today. Attestations Medical Necessity Statement*: Anticipated discharge today. Diagnoses Hypoglycemia E16.2 Thumb fracture S62.509A
[2023-01-10] MEDS: acetaminophen 325 mg Tablet 650 MG PO (13:33)
--- NOTE | 2023-01-10 13:56 | PM.CONSULT ---
Providers/Reason For Consult Consulting Physician/Specialty*: Orthopedics Reason for Consult*: Right thumb pain Attending Physician: Joe Fox MD Primary Care Provider: Navid Alegria MD History of Present Illness History of Present Illness Josi Caraballo is a 47 year old female who was in the neuropsych floor at [facility] when she became combative with attempts to restrain her sustaining injury to her right thumb which is her dominant extremity. She states the thumb was bent back and has had pain in that thumb ever since. Has been sharp stabbing constant in nature. She has had swelling in that right thumb any use of the right thumb is made it much worse. Denies any wrist elbow or shoulder pain all localized to her right thumb movement makes it much worse rest gives her some temporary relief. Review of Systems Const: Denies: fever(s), chills, body aches or malaise ENMT: Denies: throat pain Card: Denies: chest pain Resp: Denies: dyspnea or productive cough GI: Denies: abdominal pain, nausea, vomiting or diarrhea : Denies: flank pain, urinary frequency or hematuria Neuro: Denies: headache(s) or confusion Medications/Allergies Home Medications Medication Instructions Recorded Confirmed Last Taken Type insulin aspart U-100 100 unit/mL See Rx Instructions .Route .COMPLEX 04/10/19 01/05/23 01/05/23 21:54 History subcutaneous cartridge (Novolog PenFill U-100 Insulin aspart) aspirin 81 mg tablet,delayed 81 mg PO DAILY 02/08/22 01/05/23 01/05/23 08:00 History release cetirizine 10 mg tablet 10 mg PO DAILY 02/08/22 01/05/23 01/05/23 08:00 History dexlansoprazole 60 mg 60 mg PO DAILY 02/08/22 01/05/23 01/05/23 08:00 History capsule,biphase delayed release (Dexilant) estradiol 1 mg tablet 1 mg PO DAILY 02/08/22 01/05/23 03/27/22 History furosemide 20 mg tablet 20 mg PO DAILY 02/08/22 01/05/23 01/05/23 08:00 History lactulose 10 gram/15 mL oral 10 g PO DAILY PRN Constipation 02/08/22 01/05/23 Unknown History solution lisinopril 10 mg tablet 10 mg PO DAILY 02/08/22 01/05/23 01/05/23 08:00 History prucalopride 2 mg tablet 2 mg PO DAILY 02/08/22 01/05/23 01/05/23 08:00 History (Motegrity) tizanidine 4 mg tablet 4 mg PO Q8H PRN Muscle Pain 02/08/22 01/05/23 Unknown History atorvastatin 40 mg tablet 40 mg PO BEDTIME 02/12/22 01/05/23 01/04/23 20:00 History naproxen sodium 550 mg tablet 550 mg PO Q12H PRN pain #60 tabs 03/01/22 01/05/23 Unknown Rx budesonide-formoterol HFA 160 2 puff inhalation 2XD 01/05/23 01/05/23 01/05/23 08:00 History mcg-4.5 mcg/actuation aerosol inhaler (Symbicort) levothyroxine 75 mcg tablet 75 mcg PO DAILY Thyroid 01/05/23 01/05/23 01/05/23 08:00 History lidocaine 5 % topical patch 1 patch transdermal DAILY 01/05/23 01/05/23 Unknown History trazodone 50 mg tablet See Rx Instructions .Route 01/05/23 01/05/23 Unknown History .COMPLEX PRN Insomnia venlafaxine 150 mg 150 mg PO DAILY 01/05/23 01/05/23 01/05/23 08:00 History capsule,extended release 24 hr meloxicam 15 mg tablet 15 mg PO PRN PRN Pain 01/07/23 01/07/23 Unknown History trazodone 50 mg tablet 100 mg PO BEDTIME 01/07/23 01/07/23 Unknown History paliperidone 6 mg tablet,extended 6 mg PO DAILY 30 days #30 tabs 01/10/23 Unknown Rx release 24 hr Allergies Allergy/AdvReac Type Severity Reaction Status Date / Time Sulfa (Sulfonamide Allergy ALGY-Rash Verified 01/05/23 22:06 Antibiotics) STERIODS AdvReac Mild CAUSES Uncoded 01/05/23 22:06 HIGH BLOOD SUGARS. can use small doses Current Medications Generic Name Dose Route Start Last Admin Trade Name Freq PRN Reason Stop Dose Admin Acetaminophen 650 mg 01/05/23 20:50 01/10/23 13:33 Acetaminophen 325 Mg Tablet PO 650 mg Q4H PRN Administration MILD PAIN Albuterol Sulfate 2.5 mg 01/09/23 20:00 01/10/23 08:28 Albuterol 2.5 Mg/3 Ml Neb INHALATION 2.5 mg BID.RESPIRATORY LUCI Administration Aspirin 81 mg 01/06/23 09:00 01/10/23 08:37 Aspirin 81 Mg Ec Tablet PO 81 mg DAILY LUCI Administration Atorvastatin Calcium 40 mg 01/06/23 21:00 01/09/23 20:35 Atorvastatin 40 Mg Tablet PO 40 mg BEDTIME LUCI Administration Budesonide 0.5 mg 01/06/23 08:00 01/10/23 08:25 Budesonide 0.5 Mg/2 Ml Neb INHALATION 0.5 mg BID.RESPIRATORY LUCI Administration Cetirizine HCl 10 mg 01/06/23 09:00 01/10/23 08:37 Cetirizine 10 Mg Tablet PO 10 mg DAILY LUCI Administration Estradiol 1 mg 01/06/23 09:00 01/10/23 08:37 Estradiol 1 Mg Tablet PO 1 mg DAILY LUCI Administration Furosemide 20 mg 01/06/23 09:00 01/10/23 08:37 Furosemide 20 Mg Tablet PO 20 mg DAILY LUCI Administration Hydroxyzine Pamoate 50 mg 01/05/23 20:50 01/09/23 10:00 Hydroxyzine 25 Mg Capsule PO 50 mg Q6H PRN Administration ANXIETY Levothyroxine Sodium 75 mcg 01/07/23 06:30 01/10/23 05:31 Levothyroxine 75 Mcg Tablet PO 75 mcg QAM LUCI Administration Lidocaine 1 patch 01/06/23 09:00 01/10/23 08:41 Lidocaine 5% Patch TRANSDERMA 1 patch DAILY LUCI Administration Lisinopril 10 mg 01/06/23 09:00 01/10/23 08:37 Lisinopril 10 Mg Tablet PO 10 mg DAILY LUCI Administration Naproxen 500 mg 01/05/23 22:15 01/10/23 08:47 Naproxen 500 Mg Tablet PO 500 mg Q12H PRN Administration PAIN Nicotine Polacrilex 4 mg 01/05/23 21:35 01/10/23 13:33 Nicotine 4 Mg Lozenge MUCOUS MEM 4 mg Q2H PRN Administration NICOTINE CRAVINGS Non-Formulary Medication 0 mg 01/08/23 16:00 01/10/23 08:37 Prucalopride [Motegrity] PO 2 mg DAILY LUCI Administration Erythromycin Oral 0 each 01/08/23 21:00 01/10/23 05:29 Suspension PO 1 each Q8H LUCI Administration Paliperidone 6 mg 01/09/23 09:00 01/10/23 08:37 Paliperidone Er 6 Mg Tablet PO 6 mg DAILY LUCI Administration Pantoprazole Sodium 40 mg 01/06/23 09:00 01/10/23 08:[address] 40 Mg Tablet PO 40 mg DAILY LUCI Administration Trazodone HCl 50 mg 01/05/23 20:50 01/08/23 00:14 Trazodone 50 Mg Tablet PO 50 mg BEDTIME PRN Administration SLEEP Trazodone HCl 100 mg 01/08/23 21:00 01/09/23 20:33 Trazodone 100 Mg Tablet PO 100 mg BEDTIME LUCI Administration Venlafaxine HCl 150 mg 01/06/23 09:00 01/10/23 08:37 Venlafaxine Er (24hr) 150 Mg Capsule PO 150 mg DAILY LUCI Administration PFSH Acute PFSH: Medical History Anxiety Bulging lumbar disc Chronic constipation DDD (degenerative disc disease) Diabetes mellitus type 1- pump Essential (primary) hypertension GERD (gastroesophageal reflux disease) High risk medication use Hyperlipidemia Immunization counseling Immunization counseling Insomnia Leukocytosis Neuropathy Nicotine addiction Onychodystrophy PAD (peripheral artery disease) Psychiatric care Removal of other organ (partial) (total) as the cause of abnormal reaction of the patient, or of later complication, without mention of misadventure at the time of the procedure partial removal of spleen and pancreace 2005 performed in [place] S/P angiogram of extremity Seronegative rheumatoid arthritis Seronegative rheumatoid arthritis of both hands Sleep disorder Spinal stenosis Thoracic disc disease Visual snow syndrome Surgical History H/O gastric sleeve 12/20/20 in [facility] History of dental surgery History of esophagogastroduodenoscopy (EGD) S/P section S/P cholecystectomy S/P tubal ligation 1996 Family History Mother Diabetes Hypertension Grandfather Diabetes Maternal Grandmother Diabetes Maternal Father Heart disease Hypertension Family/Other Breast cancer Maternal Aunt and Paternal Aunts Sister Uterine cancer Other Hypercholesterolemia Vitals/I&O/Wt Last Vital Signs Temp 98.3 F 01/10/23 06:00 Pulse 90 01/10/23 11:44 Resp 18 01/10/23 11:44 BP 130/69 01/10/23 06:00 Pulse Ox 98 01/10/23 11:44 O2 Del Method Room Air 01/10/23 08:00 Physical Exam Narrative: Patient is alert oriented x3 has a good general appearance normal mood and normal affect. Right Thumb examined and the skin to be in good condition. Moderate swelling over the right thumb. Pain with palpation over the right thumb region. Pain with flex/extension. Pain with movement of the right thumb. Fingers are warm with good cap refill in all digits. Wiggles all digits. Normal sensation to light touch in all digits. No palpable pain in the right elbow or shoulder with full range of motion. No palpable pain in the cervical spine with full range of motion. Left upper extremity has full range of motion good sensation light touch, neurovascularly intact. Radial pulses palpable. HENMT: COMMON NORMALS: normocephalic and atraumatic HEAD & SCALP: normocephalic and atraumatic Resp: COMMON NORMALS: normal respiratory effort Cardio: COMMON NORMALS: regular rate and regular rhythm RATE: regular rate RHYTHM: regular rhythm GI: COMMON NORMALS: Soft to palpation PALPATION: Yes Soft to palpation : COMMON NORMALS: Yes no CVA tenderness BLADDER/KIDNEY EXAM: Yes no CVA tenderness Back/Pelvis: COMMON NORMALS: no CVA tenderness Psych: COMMON NORMALS: cooperative Data 01/05/23 16:40 01/05/23 16:40 A&P Assessment and plan (1) Gamekeeper's thumb of right hand: Place her in a volar wrist splint with thumb spica encouraged her to refrain from using the right hand. Ice elevate we will see her back in the office in 1 to 2 weeks for radiographic follow-up. Qualifiers: Encounter type: initial encounter Qualified Code(s): S63.641A - Sprain of metacarpophalangeal joint of right thumb, initial encounter Coding Level of Care Code Acute Code for Chg Fwd Diagnoses Gamekeeper's thumb of right hand S63.641A Encounter type: initial encounter
== END 2023-01-10 15:00 | disposition home or self-care (01) | DRG 885 ==
LOC: ER 17:23 → NP 19:54
PROVIDERS: Admitting Provider Psychiatry & Neurology Psychiatry; Emergency Provider Emergency Medicine; PCP Family Medicine; Visit Provider Psychiatry & Neurology Psychiatry
DX: F25.9 Schizoaffective disorder, unspecified (principal); R45.851 Suicidal ideations; Z96.41 Presence of insulin pump (external) (internal); Z62.810 Personal history of physical and sexual abuse in childhood; Z62.811 Personal history of psychological abuse in childhood; E10.649 Type 1 diabetes mellitus with hypoglycemia without coma; S62.511A Displaced fracture of proximal phalanx of right thumb, initial encounter for closed fracture; W51.XXXA Accidental striking against or bumped into by another person, initial encounter; Y92.239 Unspecified place in hospital as the place of occurrence of the external cause; S63.641A Sprain of metacarpophalangeal joint of right thumb, initial encounter
CPT/HCPCS: 36415; 36416; 73140; 80053; 80306; 80307; 81001; 81025; 82962; 85025; 90471; 90686; 94640; 96372; 97150; 97165; 97760; 99285; J1200; J1630; J1815; J2060; J7613; J7626; J8499; L3809

== ENCOUNTER 2023-01-15 13:22 | Outpatient (CLI) | payer MEDICAID, SELFPAY ==
--- NOTE | 2023-01-15 13:29 | MR_ITS ---
WS: [id number] MRI CERVICAL SPINE NONCONTRAST HISTORY: CERVICALGIA COMPARISON: None available. Technique: Multiplanar, multisequence noncontrast imaging of the cervical spine. Normal posterior alignment. Disc spaces with mild desiccation. No fractures or marrow edema. Diffuse narrowing of the cervical canal. Signal within the cord is normal. Craniocervical junction, C1 and C2 relationship, odontoid process and soft tissues are normal. C2-C3: Normal. C3-C4: Mild encroachment upon the ventral thecal sac. No high-grade stenosis. C4-C5: Mild annular disc bulging. Mild encroachment upon the ventral thecal sac. Mild central stenosi s. C5-C6: Mild annular disc bulge with a small central disc protrusion. Mild effacement of ventral CSF. Mild central stenosis and facet arthritis. C6-C7: Mild annular disc bulging and mild facet arthritis. Mild central stenosis. C7-T1: Mild encroachment upon the ventral thecal sac. Very mild central stenosis. Paraspinal soft tissue are normal. IMPRESSION: 1. 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 2. Shallow central disc protrusion at C5-6. Mild contact on the ventral thecal sac.
== END 2023-01-15 13:23 | disposition home or self-care (01) ==
LOC: RAD 13:23
PROVIDERS: PCP Family Medicine; Visit Provider Family Medicine
DX: M50.222 Other cervical disc displacement at C5-C6 level (principal)
CPT/HCPCS: 72141

== ENCOUNTER 2023-05-28 14:58 | Outpatient (CLI) | payer MEDICAID, SELFPAY ==
--- NOTE | 2023-05-28 15:01 | CT_ITS ---
WS: [id number] CT NECK WITH CONTRAST HISTORY: NECK SWELLING TECHNIQUE: Contiguous 2 mm axial images are performed through the neck with intravenous contrast. Sag ittal and coronal reformats are also submitted. All CT scans at [facility] [place] use at least one o f these dose optimization techniques: automated exposure control; mA and/or kV adjustment per patient size (includes targeted exams where dose is matched to clinical indication); or iterative reconstruc tion. CONTRAST: CONTRAST: Omnipaque 350; 100 mL IV. DLP: 225.30 mGy.cm COMPARISON: 08/29/2021 Nasopharynx, oropharynx, hypopharynx and larynx are unremarkable. No soft tissue masses or abnormal e nhancement. Torus tubarius and fossa of Rosenmuller and parapharyngeal fat are normal. No significant lymphadenopathy is identified. Thyroid gland and salivary glands are normally enhancing with no masses. Parotid and submandibular gl ands are mildly prominent. Very similar to the prior study. There is no inflammatory changes surround ing the salivary glands. No osseous abnormalities. Visualized portions of the skull base demonstrate no abnormalities. Orbits and globes are within norm al limits. No soft tissue masses. Visualized paranasal sinuses and mastoid air cells are normal. Lung apices are clear. IMPRESSION: Unremarkable CT neck. No adenopathy or soft tissue mass. No inflammatory changes.
[2023-05-28] MEDS: iohexol 350 mg/mL 500 mL Btl (per mL) IV (15:21)
== END 2023-05-28 14:59 | disposition home or self-care (01) ==
LOC: RAD 14:59
PROVIDERS: PCP Family Medicine; Visit Provider Family Medicine
DX: R22.1 Localized swelling, mass and lump, neck (principal)
CPT/HCPCS: 70491; Q9967

== ENCOUNTER → 2023-09-30 14:19 | Outpatient (BNVA) | payer MEDICAID, SELFPAY | PROVIDERS: PCP Family Medicine; Visit Provider Podiatrist Foot & Ankle Surgery | DX: L60.0 Ingrowing nail (principal); E10.65 Type 1 diabetes mellitus with hyperglycemia; L60.3 Nail dystrophy; Z79.4 Long term (current) use of insulin | CPT/HCPCS: 99203 ==

== ENCOUNTER 2023-11-07 10:17 | Outpatient (CLI) | payer MEDICAID, SELFPAY ==
--- NOTE | 2023-11-07 10:22 | CT_ITS ---
WS: [id number] CT chest w con* [id number] HISTORY: DYSPNEA TECHNIQUE: Axial imaging performed through the thorax. Coronal and sagittal reformats are submitted. All CT scans at [facility] use at least one of these dose optimization techniques: automated exposure control; mA and/or kV adjustment per patient size (includes targeted exams where dose is mat ched to clinical indication); or iterative reconstruction. CONTRAST: Omnipaque 350; 100 mL IV. DLP: 737.09 mGy.cm COMPARISON: 07/28/2020 Lungs and central airway: Micronodule LEFT apex. There are a few additional scattered micronodules th roughout both lungs. No mass or nodule. No pneumonia. Pleura: Pleural thickening and scarring at the LEFT lung base is unchanged since 2020. Heart and pericardium: Normal size heart with no pericardial effusion. Mediastinum and sonja: No mediastinum or hilar adenopathy. Vessels: Normal size aortic and pulmonary artery. No coronary artery calcifications. Chest wall and lower neck: 8 mm mass in the posterior LEFT breast. Patient is to undergo screening ma mmogram on the same day. Upper abdomen: Prior cholecystectomy. Mild bilateral adrenal thickening and hyperplasia. There is a w ell-circumscribed 12 mm nodule in the LEFT upper abdomen closely associated with the splenic artery, distal pancreas and the stomach. This was also present in 2020 and described on the prior CT of 2022. No interval change. Osseous structures: No destructive process. CT/CT chest w con* [id number] IMPRESSION: 1. No pulmonary mass or suspicious nodules. 2. No adenopathy. 3. Long-term stability of a 12 mm low-attenuation nodule in the LEFT upper abd omen closely associated with the pancreas, stomach and splenic artery. Stable s ld at least 2020. Also described on a prior CT of 08/09/2022. 4. Well-circumscribed nodule LEFT breast, 8 mm. Patient is undergoing screenin g mammogram today also. 5. Prior cholecystectomy.
--- NOTE | 2023-11-07 10:22 | MM_ITS ---
WS: [id number] BILATERAL SCREENING DIGITAL TOMOSYNTHESIS MAMMOGRAM WITH CAD HISTORY: SCREENING COMPARISON: None available. Bilateral CC and MLO views with tomosynthesis and synthetic mammography submitted. Computer aided det ection analyzed. Breast composition: There are scattered areas of fibroglandular density. No suspicious masses, microc alcifications or architectural distortion. MM/[place] [id number] IMPRESSION: BI-RADS: 1-Negative FOLLOW UP: 1 Year Follow-up
[2023-11-07] MEDS: iohexol 350 mg/mL 500 mL Btl (per mL) IV (11:16)
== END 2023-11-07 10:18 | disposition home or self-care (01) ==
LOC: RAD 10:17
PROVIDERS: PCP Family Medicine; Visit Provider Family Medicine
DX: Z12.31 Encounter for screening mammogram for malignant neoplasm of breast (principal); R92.323 Mammographic fibroglandular density, bilateral breasts; R06.00 Dyspnea, unspecified; Z98.890 Other specified postprocedural states
CPT/HCPCS: 71260; 77063; 77067; Q9967

== ENCOUNTER → 2024-01-02 10:54 | Outpatient (BNVA) | payer OTHER, SELFPAY | PROVIDERS: PCP Family Medicine; Visit Provider Podiatrist Foot & Ankle Surgery | DX: E10.65 Type 1 diabetes mellitus with hyperglycemia (principal); L60.3 Nail dystrophy; Z79.4 Long term (current) use of insulin | CPT/HCPCS: 99213 ==

== ENCOUNTER → 2024-02-13 12:28 | Outpatient (BNVA) | payer MEDICAID, SELFPAY | PROVIDERS: PCP Family Medicine; Referring Provider Family Medicine; Visit Provider Specialist | DX: R20.0 Anesthesia of skin (principal); M79.641 Pain in right hand; M79.642 Pain in left hand; G56.01 Carpal tunnel syndrome, right upper limb; G56.22 Lesion of ulnar nerve, left upper limb | CPT/HCPCS: 95910 ==

== ENCOUNTER 2024-06-05 14:43 | Outpatient (CLI) | payer MEDICAID, SELFPAY ==
--- NOTE | 2024-06-05 14:46 | XR_ITS ---
WS: [id number] XR hip RT 2-3V wo/w pel* [id number] REASON FOR EXAM: PAIN IN RIGHT HIP FINDINGS: No femoral neck, pubic rami, and acetabulum are intact without fracture. Minimal narrowing of the joint space with minimal subchondral sclerosis of the acetabulum. Left hip appears similar. XR/XR hip RT 2-3V wo/w pel* [id number] IMPRESSION: No acute abnormality. Minimal osteoarthritis of the right hip.
== END 2024-06-05 14:44 | disposition home or self-care (01) ==
LOC: RAD 14:44
PROVIDERS: PCP Family Medicine; Visit Provider Anesthesiology Pain Medicine
DX: M54.51 Vertebrogenic low back pain (principal); M25.551 Pain in right hip
CPT/HCPCS: 73502

== ENCOUNTER → 2024-09-01 11:04 | Outpatient (BNVA) | payer MEDICAID, SELFPAY | PROVIDERS: PCP Family Medicine; Visit Provider Orthopaedic Surgery | DX: M79.641 Pain in right hand (principal) | CPT/HCPCS: 73130; 99204 ==

== ENCOUNTER → 2024-11-03 13:37 | Outpatient (BNVA) | payer MEDICAID, SELFPAY | PROVIDERS: PCP Family Medicine; Visit Provider Podiatrist Foot & Ankle Surgery | DX: E11.8 Type 2 diabetes mellitus with unspecified complications (principal); L60.3 Nail dystrophy; Z79.4 Long term (current) use of insulin | CPT/HCPCS: 99213 ==

== ENCOUNTER → 2024-11-19 14:48 | Outpatient (BNVA) | payer MEDICAID, SELFPAY | PROVIDERS: PCP Family Medicine; Visit Provider Podiatrist Foot & Ankle Surgery | DX: M20.41 Other hammer toe(s) (acquired), right foot (principal); M20.42 Other hammer toe(s) (acquired), left foot; E10.69 Type 1 diabetes mellitus with other specified complication; L60.3 Nail dystrophy; Z79.4 Long term (current) use of insulin | CPT/HCPCS: 28010; J9999 ==

== ENCOUNTER → 2024-12-01 13:13 | Outpatient (BNVA) | payer MEDICAID, SELFPAY | PROVIDERS: PCP Family Medicine; Visit Provider Podiatrist Foot & Ankle Surgery | DX: E10.69 Type 1 diabetes mellitus with other specified complication (principal); L60.3 Nail dystrophy; M20.41 Other hammer toe(s) (acquired), right foot; M20.42 Other hammer toe(s) (acquired), left foot; Z79.4 Long term (current) use of insulin | CPT/HCPCS: 99213 ==

== ENCOUNTER → 2025-02-04 12:41 | Outpatient (BNVA) | payer MEDICAID, SELFPAY | PROVIDERS: PCP Family Medicine; Visit Provider Nurse Practitioner Family | DX: L70.0 Acne vulgaris (principal); L81.1 Chloasma; L23.1 Allergic contact dermatitis due to adhesives; D18.01 Hemangioma of skin and subcutaneous tissue; D48.5 Neoplasm of uncertain behavior of skin | CPT/HCPCS: 11102; 99204 ==